=== PATIENT | male | born 1970 | race African-American/Black ===

== ENCOUNTER 2016-04-08 19:27 | Inpatient (IN) | payer BC, OTHER ==
[~2016-04-08] VITALS: Ht 172.7 cm; Wt 132.0 kg
[2016-04-08] VITALS (10 sets, daily range): BP systolic 161–215; BP diastolic 89–126; PULSE 82–99; RESP 14–16; TEMP 98; O2SAT 96–98
[~2016-04-08 19:27] MED LIST: 1-ME1LIQ PO; CLIN150 PO; CLON0.2T PO; HYDR-3534 PO; METF-324 PO
--- NOTE | 2016-04-08 20:39 | PD ---
HPI Chief Complaint: Chest Pain Time Seen by Provider: 20:39 Travel History International Travel<30 days: No Contact w/Intl Traveler<30days: No Traveled to known affect area: No History of Present Illness HPI 45-year-old male with a history of hypertension, hyperlipidemia, diabetes, CAD with stents 2 presents to the emergency department for evaluation of chest pain and shortness of breath on exertion for one week. Patient states that for the past week he has had multiple episodes of anterior chest pain radiating to his back with shortness of breath on exertion. States that the chest pain and shortness of breath always occur together and are always brought on by exertion. He states that the chest pain is described as an achiness. States that he feels fatigued after these episodes. He denies any associated lightheadedness, dizziness, diaphoresis, nausea. He denies any fever, chills, cough or cold symptoms, swelling of the extremities. States that he had a heart catheterization with 2 stents placed about 5-10 years ago for a [facility], does not know which burial vault maker performed this procedure. States he has not seen a burial vault maker since his procedure and denies ever having a stress test performed. PCP is Dr. Vieyra. No other complaints. PFSH Past Medical History Hx Anticoagulant Therapy: No Cardiac Catheterization: Yes Cardiovascular Problems: Yes High Cholesterol: Yes Chemotherapy: No Cerebrovascular Accident: No Coronary Artery Disease: Yes Diabetes: Yes Patient Takes Glucophage: Yes Diminished Hearing: No Gastrointestinal Disorders: No Genitourinary: No Hypertension: Yes Musculoskeletal: Yes Reproductive: No Respiratory: No Immunizations Current: No Past Surgical History Abdominal Surgery: No Cardiac Surgery: No Coronary Stent: Yes (X 2 IN 2009) Ear Surgery: No Endocrine Surgery: No Eye Surgery: No Genitourinary Surgery: No Gynecologic Surgery: No Oral Surgery: Yes Thoracic Surgery: No Social History Alcohol Use: No Tobacco Use: No Substance Use: No Allergies-Medications (Allergen,Severity, Reaction): Coded Allergies: Penicillin (Verified Allergy, Severe, ITCHING, 04/08/16) Reported Meds & Prescriptions Reported Meds & Active Scripts Active Reported Clonidine (Clonidine HCl) 0.2 Mg Tab 0.2 Mg PO BID Metformin (Metformin HCl) 1,000 Mg Tab 1,000 Mg PO BIDPC With meals Review of Systems Except as stated in HPI: all other systems reviewed are Neg Physical Exam Narrative GENERAL: Well-nourished and well-developed pleasant male patient in no acute distress. SKIN: Warm and dry. HEAD: Normocephalic and atraumatic. EYES: No injection, drainage, or hyphema noted. PERRLA. EOMI. ENT: No nasal drainage noted. Oropharynx is clear. NECK: Supple and the trachea is midline. CARDIOVASCULAR: Regular rate and rhythm. RESPIRATORY: Breath sounds are equal bilaterally with no accessory muscle use, wheezing, rhonchi, or crackles. GASTROINTESTINAL: Abdomen is soft, non-tender, and nondistended. MUSCULOSKELETAL: No obvious deformities, swelling, cyanosis, or ecchymosis is present throughout the upper and lower extremities. Patient has full range of motion without any signs of neurovascular compromise. NEUROLOGICAL: Awake, alert, and oriented. Normal speech and gait. Cranial nerves are grossly intact. Data Data Last Documented VS Vital Signs Date Time Temp Pulse Resp B/P Pulse Ox O2 Delivery O2 Flow Rate FiO2 04/08/16 21:48 86 14 168/99 98 Room Air 04/08/16 19:28 98.0 Orders Electrocardiogram (04/08/16 19:48) Complete Blood Count With Diff (04/08/16 19:48) Basic Metabolic Panel (Bmp) (04/08/16 19:48) Ckmb (Isoenzyme) Profile (04/08/16 19:48) Troponin I (04/08/16 19:48) Chest, Single Ap (04/08/16 19:48) Iv Access Insert/Monitor (04/08/16 19:48) Ecg Monitoring (04/08/16 19:48) Oxygen Administration (04/08/16 19:48) Oximetry (04/08/16 19:48) Prothrombin Time / Inr (Pt) (04/08/16 20:38) Act Partial Throm Time (Ptt) (04/08/16 20:38) Aspirin (Aspirin) (04/08/16 20:45) Nitroglycerin-Dextrose Inj (Nitroglyceri (04/08/16 20:45) Sodium Chloride 0.9% Flush (Ns Flush) (04/08/16 20:45) B-Type Natriuretic Peptide (04/08/16 20:44) CKMB (04/08/16 20:00) CKMB% (04/08/16 20:00) Admit Order (Ed Use Only) (04/08/16 22:25) Labs Laboratory Tests Test 04/08/16 20:00 White Blood Count 6.6 TH/MM3 Red Blood Count 5.31 MIL/MM3 Hemoglobin 14.1 GM/DL Hematocrit 43.3 % Mean Corpuscular Volume 81.4 FL Mean Corpuscular Hemoglobin 26.5 PG Mean Corpuscular Hemoglobin 32.5 % Concent Red Cell Distribution Width 14.2 % Platelet Count 218 TH/MM3 Mean Platelet Volume 10.2 FL Neutrophils (%) (Auto) 53.5 % Lymphocytes (%) (Auto) 36.4 % Monocytes (%) (Auto) 7.8 % Eosinophils (%) (Auto) 1.2 % Basophils (%) (Auto) 1.1 % Neutrophils # (Auto) 3.5 TH/MM3 Lymphocytes # (Auto) 2.4 TH/MM3 Monocytes # (Auto) 0.5 TH/MM3 Eosinophils # (Auto) 0.1 TH/MM3 Basophils # (Auto) 0.1 TH/MM3 CBC Comment DIFF FINAL Differential Comment Prothrombin Time 9.9 SEC Prothromb Time International 0.9 RATIO Ratio Activated Partial 27.3 SEC Thromboplast Time Sodium Level 138 MEQ/L Potassium Level 3.6 MEQ/L Chloride Level 103 MEQ/L Carbon Dioxide Level 24.1 MEQ/L Anion Gap 11 MEQ/L Blood Urea Nitrogen 17 MG/DL Creatinine 1.05 MG/DL Estimat Glomerular Filtration 92 ML/MIN Rate Random Glucose 323 MG/DL Calcium Level 9.1 MG/DL Total Creatine Kinase 237 U/L Creatine Kinase MB 1.4 NG/ML Troponin I 0.02 NG/ML B-Type Natriuretic Peptide LESS THAN 2 PG/ML MDM Medical Decision Making Medical Screen Exam Complete: Yes Emergency Medical Condition: Yes Differential Diagnosis Unstable angina versus hypertensive urgency versus ACS versus other Narrative Course 45-year-old male presents to the emergency department for evaluation of chest pain and shortness of breath with exertion for the past week. Patient is afebrile. He is hypertensive with a blood pressure of 215/123. He is not currently experiencing any chest pain at this time. IV access is obtained, labs of been drawn and sent. EKG shows sinus rhythm with no acute ST elevations or depressions, read and discussed with my attending physician Dr. Trujillo. Patient will be placed on a nitro drip and he is given aspirin 325 mg orally. Chest x-ray is negative for any acute abnormalities. CBC is unremarkable. Coags are unremarkable. CMP shows hyperglycemia with a glucose of 323, otherwise unremarkable. Troponin is 0.02. BNP is less than 2. The patient has remained stable and without complaint while here in the emergency department. After being on the nitro drip his blood pressure has improved to 165/98. The patient will be admitted to medicine service with cardiology consultation. I discussed the case with my attending physician Dr. Trujillo who is aware of the patients history, physical examination findings, and treatment plan. Physician Communication Physician Communication I spoke with Dr. Chowdhury [facility] who agrees to admit the patient to her service. Diagnosis Primary Impression: Hypertensive urgency Additional Impressions: Chest pain Qualified Code: R07.9 - Chest pain, unspecified type Unstable angina Admitting Information Admitting Physician Requests: Admit Xiao Kruse Apr 08, 2016 20:39
--- NOTE | 2016-04-08 20:42 | RADRPT ---
EXAM DATE/TIME: 04/08/2016 20:08 [place] COMPARISON: No previous studies available for comparison. INDICATIONS : Chest Pain and Shortness of breath MEDICAL HISTORY : High Blood Pressure SURGICAL HISTORY : None. ENCOUNTER: Initial ACUITY: 1 day PAIN SCORE: 5/10 LOCATION: Bilateral chest FINDINGS: A single view of the chest demonstrates the lungs to be symmetrically aerated without evidence of mas s, infiltrate or effusion. The cardiomediastinal contours are unremarkable. Mild elevation right he midiaphragm. Osseous structures are intact. CONCLUSION: The lungs are clear. Jose Smith MD on April 08, 2016 at 20:41 Board Certified Radiologist. This report was verified electronically.
[2016-04-08] MEDS ORDERED: SODIUM CHLORIDE 0.9% FLUSH 5 ML FLUSH IVF PRN (20:45)
[2016-04-08] MEDS ORDERED: ASPIRIN 325 MG TAB PO ONE (20:45)
[2016-04-08] MEDS ORDERED: NITROGLYCERIN-DEXTROSE INJ 250 ML IV ONE (20:45)
[2016-04-08] MEDS ORDERED: METF1000 PO (21:04)
[2016-04-08] MEDS ORDERED: CLON0.2T PO (21:04)
[2016-04-08 21:11] LABS: AUTOMATED NEUTROPHIL # 3.5 TH/MM3 (1.8-7.7); BASOPHIL # 0.1 TH/MM3 (0-0.2); BASOPHIL % 1.1 % (0.0-2.0); EOSINOPHIL # 0.1 TH/MM3 (0-0.4); EOSINOPHIL % 1.2 % (0.0-4.0); HEMATOCRIT 43.3 % (39.0-51.0); HEMO FLAGS DIFF FINAL; LYMPH % 36.4 % (9.0-44.0); LYMPHOCYTE # 2.4 TH/MM3 (1.0-4.8); MEAN CELL VOLUME 81.4 FL (80.0-100.0); MEAN CORPUSCULAR HEMOGLOBIN 26.5 PG (27.0-34.0); MEAN CORPUSCULAR HGB CONC 32.5 % (32.0-36.0); MONO % 7.8 % (0.0-8.0); NEUT % 53.5 % (16.0-70.0); PLATELET COUNT 218 TH/MM3 (150-450); RED BLOOD COUNT 5.31 MIL/MM3 (4.50-5.90); RED CELL DISTRIBUTION WIDTH 14.2 % (11.6-17.2); WHITE BLOOD COUNT 6.6 TH/MM3 (4.0-11.0)
[2016-04-08 21:19] LABS: APTT (PATIENT) 27.3 SEC (24.3-30.1); INTERNATIONAL NORMALIZED RATIO 0.9 RATIO; PROTHROMBIN TIME - PATIENT 9.9 SEC (9.8-11.6)
[2016-04-08 21:37] LABS: ANION GAP 11 MEQ/L (5-15); BICARBONATE 24.1 MEQ/L (21.0-32.0); BLOOD UREA NITROGEN 17 MG/DL (7-18); CHLORIDE 103 MEQ/L (98-107); GLOMERULAR FILTRATION RATE 92 ML/MIN (>89); POTASSIUM 3.6 MEQ/L (3.5-5.1); SODIUM (NA) 138 MEQ/L (136-145)
[2016-04-08 21:41] LABS: CREATINE KINASE 237 U/L (39-308)
[2016-04-08 21:53] LABS: CKMB 1.4 NG/ML (0.5-3.6)
[2016-04-08] MEDS ORDERED: SODIUM CHLORIDE 0.9% FLUSH 5 ML FLUSH FLUSH PRN (22:30)
[2016-04-08] MEDS ORDERED: ONDANSETRON HCL 4 MG/2 ML VIAL IVP PRN (22:30)
[2016-04-08] MEDS ORDERED: DEXTROSE 50% IN WATER 50 ML VIAL(D50) IV PUSH PRN (22:30)
[2016-04-08] MEDS ORDERED: ACETAMINOPHEN/HYDROcodone 325 MG/5 MG TAB PO PRN (22:30)
[2016-04-08] MEDS ORDERED: MORPHINE SULFATE 4 MG/ML INJ IV PRN (22:30)
[2016-04-08] MEDS ORDERED: BISACODYL 10 MG SUPP PR PRN (22:30)
[2016-04-08] MEDS ORDERED: METOPROLOL TARTRATE 25 MG TAB PO ONE (22:30)
[2016-04-08] MEDS ORDERED: ACETAMINOPHEN 325 MG TAB PO PRN (22:30)
[2016-04-08] MEDS ORDERED: GLUCAGON 1 MG/ML VIAL OTHER PRN (22:30)
--- NOTE | 2016-04-08 22:35 | HHI.HP ---
[facility] No Primary Care Physician Admission Diagnosis Chest Pain, Unstable Angina, Hypertensive Urgency Diagnoses: (1) Chest pain Diagnosis: Principal (2) Hypertensive urgency Diagnosis: Principal (3) CAD (coronary artery disease) Diagnosis: Principal (4) DM (diabetes mellitus) Diagnosis: Principal Travel History International Travel<30 Days: No Contact w/Intl Traveler <30 Da: No Traveled to Known Affected Are: No History of Present Illness This is a 45-year-old male with PMH of HTN, Hyperlipidemia, DM and CAD s/p Stent 2009 who came to the ER w/ complaints of chest pain and SOB for approx 1wk. States he's had ongoing SOB mostly w/ exertion that has gotten progressively worse, now unable to walk short distances without SOB, has chest pain associated w/ SOB. No fever, no chills. 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 On arrival, BP 215/123, HR 99, O2 sat 96% on RA, Afebrile. Started on Nitro gtt in ER, currently BP 168/99, HR 86. Chest pain free at this time. CBC unremarkable. Chemistry essentially unremarkable. Troponin 0.02. CXR with no acute findings. Review of Systems Other ROS: 14 point review of systems otherwise negative. Past Family Social History Past Medical History PMH: HTN, Hyperlipidemia, DM and CAD s/p Stent 2009 Past Surgical History PAST SURGICAL HISTORY: Cardiac Stent x2 2010 Allergies: Coded Allergies: Penicillin (Verified Allergy, Severe, ITCHING, 04/08/16) Family History PAST FAMILY HISTORY: Reviewed, positive for DM and CAD. Social History PAST SOCIAL HISTORY: Negative for alcohol, tobacco or drugs. Physical Exam Vital Signs Vital Signs Date Time Temp Pulse Resp B/P Pulse Ox O2 Delivery O2 Flow Rate FiO2 04/08/16 21:48 86 14 168/99 98 Room Air 04/08/16 21:30 88 15 172/102 98 Room Air 04/08/16 21:15 82 15 202/118 97 Room Air 04/08/16 21:00 86 15 197/99 98 04/08/16 20:57 88 15 187/112 98 04/08/16 20:46 86 15 181/108 98 04/08/16 20:00 86 04/08/16 20:00 99 Room Air 04/08/16 19:58 86 16 202/126 97 04/08/16 19:28 98.0 99 16 215/123 96 Physical Exam PE: GENERAL: Very pleasant middle-aged white male in no acute distress. at bedside. HEENT: PERRLA, EOMI. No scleral icterus or conjunctival pallor. No lid lag or facial droop. CARDIOVASCULAR: Regular rate and rhythm. No obvious murmurs to auscultation. No chest tenderness to palpation. RESPIRATORY: No obvious rhonchi or wheezing. Clear to auscultation. Breath sounds equal bilaterally. GASTROINTESTINAL: Abdomen soft, non-tender, nondistended. BS normal. MUSCULOSKELETAL: Extremities without clubbing, cyanosis, or edema. No obvious deformities. NEUROLOGICAL: Awake, alert and oriented x4. No focal neurologic deficits. Moving both upper and lower extremities spontaneously. Laboratory Laboratory Tests Test 04/08/16 20:00 White Blood Count 6.6 Red Blood Count 5.31 Hemoglobin 14.1 Hematocrit 43.3 Mean Corpuscular Volume 81.4 Mean Corpuscular Hemoglobin 26.5 Mean Corpuscular Hemoglobin 32.5 Concent Red Cell Distribution Width 14.2 Platelet Count 218 Mean Platelet Volume 10.2 Neutrophils (%) (Auto) 53.5 Lymphocytes (%) (Auto) 36.4 Monocytes (%) (Auto) 7.8 Eosinophils (%) (Auto) 1.2 Basophils (%) (Auto) 1.1 Neutrophils # (Auto) 3.5 Lymphocytes # (Auto) 2.4 Monocytes # (Auto) 0.5 Eosinophils # (Auto) 0.1 Basophils # (Auto) 0.1 CBC Comment DIFF FINAL Differential Comment Prothrombin Time 9.9 Prothromb Time International 0.9 Ratio Activated Partial 27.3 Thromboplast Time Sodium Level 138 Potassium Level 3.6 Chloride Level 103 Carbon Dioxide Level 24.1 Anion Gap 11 Blood Urea Nitrogen 17 Creatinine 1.05 Estimat Glomerular Filtration 92 Rate Random Glucose 323 Calcium Level 9.1 Total Creatine Kinase 237 Creatine Kinase MB 1.4 Troponin I 0.02 B-Type Natriuretic Peptide LESS THAN 2 Result Diagram: 04/08/16199904/08/161999 Assessment and Plan Problem List: (1) Chest pain ICD Code: R07.9 Status: Acute (2) CAD (coronary artery disease) ICD Code: I25.10 Status: Acute (3) Hypertensive urgency ICD Code: I16.0 Status: Acute (4) DM (diabetes mellitus) ICD Code: E11.9 Status: Acute Assessment and Plan A/P: 1. Chest Pain: Exertional, associated w/ SOB, ongoing x1 wk, now progressively worse. Initial trop negative, EKG w/ no acute ischemia. Admit for further cardiac work up in light of h/o CAD. Check serial trop, lipid profile, Hgb A1c, TSH. Start ASA, Metoprolol, Statin. Consult Cardiology for further evaluation. CXR w/ no acute findings, images reviewed by me. On Nitro gtt. Morphine prn. 2. CAD: h/o Cardiac Stent x2 in 2009, no follow up w/ Cardiology since then. 3. Hypertensive Urgency: BP on arrival 215/123, HR 99 started on Nitro gtt in ER, BP currently 168/99, HR 86. Continue Nitro, wean as tolerated. Start Metoprolol 25mg bid, resume home Clonidine 0.2mg bid. 4. DM: Sliding scale w/ Accu-Cheks. Hold Metformin for possible cardiac intervention. Check Hgb A1c. 5. DVT Prophylaxis: SCD/Teds. 6. Social work for d/c planning as needed. 7. Case discussed w/ ER physician at length. Physician Certification 2 Midnight Certification Type: Admission for Inpatient Services Order for Inpatient Services The services are ordered in accordance with Medicare regulations or non- Medicare payer requirements, as applicable. In the case of services not specified as inpatient-only, they are appropriately provided as inpatient services in accordance with the 2-midnight benchmark. Estimated LOS (days): 2 days is the estimated time the patient will need to remain in the hospital, assuming treatment plan goals are met and no additional complications. Post-Hospital Plan: Not yet determined Problem Qualifiers (1) Chest pain: Qualified Code: R07.9 - Chest pain, unspecified type Haven Chowdhury MD Apr 08, 2016 22:35
[2016-04-09] VITALS (9 sets, daily range): BP systolic 132–167; BP diastolic 71–93; PULSE 67–82; RESP 14–16; O2SAT 96–98
[2016-04-09 05:49] LABS: HDL CHOLESTEROL 49.9 MG/DL (40.0-60.0); LDL CHOLESTEROL 170 MG/DL (0-99)
--- NOTE | 2016-04-09 06:12 | EKG ---
Date Performed: 04/08/2016 Time Performed: 20:02:40 PTAGE: 45 years EKG: Sinus rhythm NONSPECIFIC INTRAVENTRICULAR CONDUCTION DELAY NONSPECIFIC T-WAVE ABNORMALITY BORDERLINE ECG PREVIOUS TRACING : 06/06/2011 09.52 No significant change from previous tracing noted. DOCTOR: Je Williamson Interpretating Date/Time 04/09/2016 06:11:26
[2016-04-09] MEDS: INSULIN ASPART SUPPLEMENTAL SCALE SQ SCH ×4 (08:52→19:55)
[2016-04-09] MEDS ORDERED: cloNIDine HCL 0.2 MG TAB PO SCH (09:00)
[2016-04-09] MEDS ORDERED: LISINOPRIL 20 MG TAB PO SCH (09:00)
[2016-04-09] MEDS ORDERED: PRAVASTATIN SOD 40 MG TAB PO SCH (09:00)
[2016-04-09] MEDS: SODIUM CHLORIDE 0.9% FLUSH 5 ML FLUSH FLUSH SCH ×2 (09:00→19:46)
[2016-04-09] MEDS: METOPROLOL TARTRATE 25 MG TAB PO SCH ×2 (09:03→19:45)
[2016-04-09] MEDS: ASPIRIN EC 81 MG TABEC PO SCH (09:03)
[2016-04-09] MEDS: ATORVASTATIN 80 MG TAB PO SCH (09:21)
--- NOTE | 2016-04-09 09:27 | HHI.PR ---
Subjective Remarks The patient was resting in bed comfortably. He said he has pain in a bandlike distribution across his chest that radiates to the right side of his back. He gets worse with activity such as walking 50 feet. He does not have symptoms at rest. He has not had a stress test in a long time. He does not have pain upon breathing deeply. Discussed with nursing. Objective Vitals Vital Signs Date Time Temp Pulse Resp B/P Pulse Ox O2 Delivery O2 Flow Rate FiO2 04/09/16 08:50 82 16 141/73 96 Room Air 04/09/16 07:10 72 16 140/81 98 Room Air 04/09/16 05:00 67 14 160/89 98 Room Air 04/09/16 04:00 72 14 157/92 98 Room Air 04/09/16 03:00 74 14 153/86 98 Room Air 04/09/16 02:00 72 16 167/91 98 Room Air 04/09/16 01:00 77 16 163/93 98 Room Air 04/08/16 23:59 83 16 161/96 98 Room Air 04/08/16 22:48 82 16 179/89 98 Room Air 04/08/16 21:48 86 14 168/99 98 Room Air 04/08/16 21:30 88 15 172/102 98 Room Air 04/08/16 21:15 82 15 202/118 97 Room Air 04/08/16 21:00 86 15 197/99 98 04/08/16 20:57 88 15 187/112 98 04/08/16 20:46 86 15 181/108 98 04/08/16 20:00 86 04/08/16 20:00 99 Room Air 04/08/16 19:58 86 16 202/126 97 04/08/16 19:28 98.0 99 16 215/123 96 Result Diagram: 04/08/16199904/08/161999 Imaging Last Impressions Chest X-Ray 04/08/161947 Signed Impressions: Service Date/Time: Friday, April 08, 2016 20:08 - CONCLUSION: The lungs are clear. Jose Smith MD Objective Remarks GENERAL: No apparent distress, resting comfortably. HEENT: PERRLA, EOMI. No scleral icterus or conjunctival pallor. No lid lag or facial droop. CARDIOVASCULAR: Regular rate and rhythm. No obvious murmurs to auscultation. No chest tenderness to palpation. RESPIRATORY: No obvious rhonchi or wheezing. Clear to auscultation. Breath sounds equal bilaterally. GASTROINTESTINAL: Abdomen soft, non-tender, nondistended. BS normal. MUSCULOSKELETAL: Extremities without clubbing, cyanosis, or edema. No obvious deformities. NEUROLOGICAL: Awake, alert and oriented x4. No focal neurologic deficits. Moving both upper and lower extremities spontaneously. PSYCH: Mood and affect appropriate. Medications and IVs Current Medications Medications (Trade) Dose Ordered Sig/Sin Route Start Time Stop Time Status Last Admin (Lopressor) 25 mg Q12HR PO 04/09/16 09:00 04/09/16 09:03 (Ecotrin Ec) 81 mg DAILY PO 04/09/16 09:00 04/09/16 09:03 (D50w (Vial) Inj) 25 ml UNSCH PRN IV PUSH 04/08/16 22:30 (Glucagon Inj) 1 mg UNSCH PRN OTHER 04/08/16 22:30 (NS Flush) 2 ml UNSCH PRN FLUSH 04/08/16 22:30 (NS Flush) 2 ml BID FLUSH 04/09/16 09:00 (Zofran Inj) 4 mg Q6H PRN IVP 04/08/16 22:30 (Dulcolax Supp) 10 mg DAILY PRN OH 04/08/16 22:30 (Tylenol) 650 mg Q6H PRN PO 04/08/16 22:30 (Chazy 5-325 Mg) 1 tab Q4H PRN PO 04/08/16 22:30 (Morphine Inj) 2 mg Q3H PRN IV 04/08/16 22:30 (Catapres) 0.2 mg BID PO 04/09/16 09:00 (Lipitor) 80 mg DAILY PO 04/09/16 09:00 (Prinivil) 20 mg DAILY PO 04/09/16 09:00 A/P Problem List: (1) Chest pain ICD Code: R07.9 Status: Acute (2) CAD (coronary artery disease) ICD Code: I25.10 Status: Acute (3) Hypertensive urgency ICD Code: I16.0 Status: Acute (4) DM (diabetes mellitus) ICD Code: E11.9 Status: Acute Assessment and Plan Chest pain History of stents x 2. Exertional, associated w/ SOB, ongoing x1 wk, progressively worse. Second troponin 0.05. EKG w/ no acute ischemia. CXR with no acute findings. LDL elevated. - check serial trop. - Start ASA, Metoprolol, statin, ACEi. - Consult cardiology for further evaluation. Will likely need stress test. - pain control and oxygen as needed. - telemetry. Hypertensive urgency BP on arrival 215/123, started on Nitro gtt in ER, BP improved. - Continue Nitro, wean as tolerated. - Start Metoprolol 25mg bid, lisinopril 20 mg daily. - clonidine as needed. DM On metformin as an outpt. He says his sugars have been out of control at home. - Sliding scale w/ Accu-Cheks. - Hold Metformin for possible cardiac intervention. - Check Hgb A1c. - start NPH 20 units daily. - bisque finisher consult. DVT Prophylaxis: Heparin. Discharge Planning Awaiting clinical improvement. Problem Qualifiers (1) Chest pain: Qualified Code: R07.9 - Chest pain, unspecified type Sincere Reyes DO Apr 09, 2016 09:27
[2016-04-09] MEDS: INSULIN HUMAN NPH 1,000 UNITS/10 ML VIAL SQ SCH (11:06)
[2016-04-09 11:09] LABS: AUTOMATED NEUTROPHIL # 4.6 TH/MM3 (1.8-7.7); BASOPHIL % 0.5 % (0.0-2.0); EOSINOPHIL # 0.1 TH/MM3 (0-0.4); EOSINOPHIL % 1.1 % (0.0-4.0); HEMO FLAGS DIFF FINAL; LYMPH % 33.1 % (9.0-44.0); LYMPHOCYTE # 2.6 TH/MM3 (1.0-4.8); MEAN CELL VOLUME 80.3 FL (80.0-100.0); MEAN CORPUSCULAR HEMOGLOBIN 26.8 PG (27.0-34.0); MEAN CORPUSCULAR HGB CONC 33.4 % (32.0-36.0); MONO % 7.8 % (0.0-8.0); NEUT % 57.5 % (16.0-70.0); PLATELET COUNT 209 TH/MM3 (150-450); RED BLOOD COUNT 4.85 MIL/MM3 (4.50-5.90); RED CELL DISTRIBUTION WIDTH 14.5 % (11.6-17.2)
[2016-04-09 11:46] LABS: ALKALINE PHOSPHATASE 110 U/L (45-117); ALT (GPT) 20 U/L (12-78); ANION GAP 8 MEQ/L (5-15); AST (GOT) 10 U/L (15-37); BICARBONATE 27.2 MEQ/L (21.0-32.0); BLOOD UREA NITROGEN 14 MG/DL (7-18); CHLORIDE 105 MEQ/L (98-107); GLOMERULAR FILTRATION RATE 107 ML/MIN (>89); POTASSIUM 3.3 MEQ/L (3.5-5.1); SODIUM (NA) 140 MEQ/L (136-145); TOTAL BILIRUBIN ADULT 0.3 MG/DL (0.2-1.0)
--- NOTE | 2016-04-09 14:08 | MB ---
cc: CHI DUDLEY DATE OF CONSULTATION: 04/09/2016 DATE OF : 1970 REASON FOR CONSULTATION Chest pain. HISTORY OF PRESENT ILLNESS 45-year-old male with past medical history significant for hypertension, hyperlipidemia, diabetes and coronary artery disease status post PCI in 2009 to right coronary artery that presented to the emergency department with complaints of fatigue and chest pain for about one week. He reports that he had been in his usual state of health until about one week ago when he started noticing fatigue on minimal exertion as well as chest discomfort across the chest without radiation. He denies fevers, chills, nausea, vomiting, diarrhea, chest trauma or bleeding issues. He reports for the most part being noncompliant with medications and he does not follow with cardiology. On arrival to the emergency department blood pressure was 215/123 with a heart rate of 99. He was started on a nitro drip and the chest pain resolved. Cardiology has been consulted for further management and evaluation of angina. REVIEW OF SYSTEMS Negative except for what is mentioned in the HPI. PAST MEDICAL HISTORY 1. CAD status post PCI to the right coronary artery in 2009. 2. Hypertension. 3. Hyperlipidemia. 4. Diabetes. 5. Obesity. PAST SURGICAL HISTORY Stents in 2009. MEDICATIONS According to the chart home medications he is on clonidine 0.2 mg p.o. b.i.d. and metformin 1000 mg p.o. b.i.d. ALLERGIES PENICILLIN. FAMILY HISTORY Positive for diabetes and CAD; however, no premature myocardial infarction. SOCIAL HISTORY Denies smoking, illicit drug use or alcohol use. PHYSICAL EXAMINATION VITAL SIGNS: Temperature 98, heart rate 82, respiratory rate 16, blood pressure on arrival 215/123, this morning 141/73. O2 96% at room air GENERAL: He is awake, alert, oriented x3, in no acute distress lying in bed. NECK: No JVD. No carotid bruits. No lymphadenopathy. HEART: Normal S1, S2. No murmurs, rubs or gallops. LUNGS: Clear to auscultation bilaterally. No wheezes, rhonchi or rales. ABDOMEN: Obese. Positive bowel sounds. Soft, nontender, nondistended. No hepatosplenomegaly. EXTREMITIES: There is no cyanosis or edema. Pulses throughout. LABORATORY DATA Hemoglobin 14, hematocrit 43, platelet count 218. INR 0.9. Sodium 138, potassium 3.6, BUN 17, creatinine 1.05. Troponin 0.02 and 0.05. Cholesterol 235, LDL 170, HDL 49. TSH 2.010. EKG EKG shows normal sinus rhythm with nonspecific ST changes and interventricular conduction delay. CARDIAC STUDIES The patient underwent a left heart catheterization and PCI in 2009 at [facility] in the setting of angina and palpitations. He was found to have an EF of 40% at that time and severe lesions in the mid RCA and distal RCA which were successfully stented with two drug-eluting stent, 3 x 18 and 2.75 x 13. ASSESSMENT A 45-year-old male presenting with angina in the setting of hypertensive urgency and symptoms of angina. He remains fairly hemodynamically stable and chest pain free. Blood pressure has been successfully controlled with medications. He does have known CAD and noncompliance issues. I have talked to him and he reported that mostly compliance was due to problems with his insurance; however, that has been resolved and he does wants to follow with cardiology as well as to comply with his medications. Given the patient's risk factors and history of CAD I think it would be reasonable to risk stratify him for progression of CAD doing a myocardial perfusion stress test. If the stress test is negative, blood pressure medications as well as CAD medications should be optimized. He can follow with me on an outpatient basis. On the other hand if the stress test shows reversible ischemia, I have talked to him about the possibility of doing a left heart cath to further assess progression of CAD. The patient is in agreement with the plan. RECOMMENDATIONS 1. Myocardial perfusion stress test today. 2. Continue aggressive medical management for CAD including aspirin, metoprolol , JAYJAY inhibitor, statin. 3. Diabetes mellitus management. 4. Regarding his blood pressure outpatient therapy ideally this patient should not be on clonidine. I would prefer him to be on a more simple medication regimen with better side effect profile. Thank you for the opportunity to take part in the care of this patient. MD ROSEMARIE De Luna/BT /9:59 AM /1:45 PM [place]
[2016-04-09] MEDS ORDERED: LISINOPRIL 20 MG TAB PO ONE (16:00)
[2016-04-09] MEDS: HEPARIN SODIUM - SQ 10,000 UNITS/ML VIAL SQ SCH ×2 (16:08→19:45)
[2016-04-09] MEDS: NITROGLYCERIN 2% OINT 1 GM PACKET TOPICAL SCH (16:09)
[2016-04-09] MEDS: cloNIDine HCL 0.2 MG TAB PO PRN (23:00)
[2016-04-10] VITALS: BP 154/89; PULSE 75; RESP 23; TEMP 98.3; O2SAT 98
[2016-04-10 04:00] VITALS: BP 148/79; PULSE 72; RESP 19; TEMP 98.9; O2SAT 19
[2016-04-10] MEDS: HEPARIN SODIUM - SQ 10,000 UNITS/ML VIAL SQ SCH ×2 (05:41→13:41)
[2016-04-10] MEDS: INSULIN ASPART SUPPLEMENTAL SCALE SQ SCH ×3 (05:43→20:46)
[2016-04-10] MEDS: NITROGLYCERIN 2% OINT 1 GM PACKET TOPICAL SCH ×4 (05:43→20:44)
[2016-04-10 08:00] VITALS: BP 152/92; PULSE 81; RESP 20; TEMP 98.7
[2016-04-10] MEDS: ASPIRIN EC 81 MG TABEC PO SCH (08:14)
[2016-04-10] MEDS: LISINOPRIL 20 MG TAB PO SCH (08:14)
[2016-04-10] MEDS: SODIUM CHLORIDE 0.9% FLUSH 5 ML FLUSH FLUSH SCH (08:15)
[2016-04-10] MEDS: ATORVASTATIN 80 MG TAB PO SCH (08:15)
[2016-04-10] MEDS: METOPROLOL TARTRATE 25 MG TAB PO SCH (08:15)
[2016-04-10] MEDS: INSULIN HUMAN NPH 1,000 UNITS/10 ML VIAL SQ SCH (08:15)
[2016-04-10] MEDS ORDERED: POTASSIUM CHLORIDE 20 MEQ CONTROLLED RELEASE TAB PO ONE ×2 (09:45→13:15)
[2016-04-10] MEDS ORDERED: METOPROLOL TARTRATE 25 MG TAB PO ONE (09:45)
[2016-04-10] MEDS: cloNIDine HCL 0.2 MG TAB PO PRN ×2 (10:05→16:21)
[2016-04-10] MEDS ORDERED: REGADENOSON INJ 0.4 MG/5 ML SYR ONE (11:30)
[2016-04-10 12:00] VITALS: BP 163/98; RESP 18; TEMP 98.5
[2016-04-10 13:07] LABS: HEMOGLOBIN A1a 1.3 %; HEMOGLOBIN A1b 1.1 %; HEMOGLOBIN Ao 77.9 %; HEMOGLOBIN F 1.5 %; HEMOGLOBIN LA1C 2.7 %; HEMOGLOBIN P3 4.8 %
--- NOTE | 2016-04-10 13:07 | RADRPT ---
EXAM DATE/TIME: 04/09/2016 12:39 [facility] COMPARISON: No previous studies available for comparison. INDICATIONS : Susbternal chest pain with dyspnea. Angina. Coronary artery disease. DOSE: 30 mCi Tc99m Myoview at stress. 31.9 mCi Tc99m Myoview at rest. 0.4 mg Lexiscan STRESS SYMPTOMS: Dyspnea. EJECTION FRACTION: 36% MEDICAL HISTORY : Hypertension. Diabetes mellitus type 2. SURGICAL HISTORY : Coronary artery stent. ENCOUNTER: Initial ACUITY: 1 day PAIN SCALE: 6/10 LOCATION: Substernal chest TECHNIQUE: The patient underwent pharmacologic stress with infusion of prescribed dose. Continuous ECG tracing was monitored during stress. Gated SPECT imaging was performed after stress and conventional SPECT i maging was performed at rest. The examination was performed on a SPECT/CT scanner, both attenuation and non-corrected datasets were reviewed. FINDINGS: DISTRIBUTION: The maximum perfused segment at stress is in the anterior wall. PERFUSION STUDY: There is moderately diminished perfusion along the apical inferior wall. There is some questionable r edistribution on the rest images. No other areas of redistribution or demonstrated. GATED STUDY: There is dyskinesia of the inferior wall. There is global hypokinesis. CONCLUSION: 1. Diminished perfusion is noted along the apical inferior wall with questionable redistribution on t he rest images. 2. Dyskinesia of the inferior wall and global hypokinesis 3. Diminished ejection fraction at 36%. RISK CATEGORY: Intermediate Anatoly Barbosa MD on April 10, 2016 at 12:59 Board Certified Radiologist. This report was verified electronically.
--- NOTE | 2016-04-10 13:14 | HHI.PR ---
Subjective Remarks The patient had just had a stress test. He was resting comfortably. His was at the bedside. He denied any chest pain or shortness of breath. He denies any constipation. He said he has been on all kinds of blood pressure medications in the past. Discussed with nursing. Objective Vitals Vital Signs Date Time Temp Pulse Resp B/P Pulse Ox O2 Delivery O2 Flow Rate FiO2 04/10/16 08:00 98.7 81 20 152/92 04/10/16 04:00 98.9 72 19 148/79 19 04/10/16 00:00 98.3 75 23 154/89 98 I/O 04/09/16 04/09/16 04/09/16 04/10/16 04/10/16 04/10/16 07:00 15:00 23:00 07:00 15:00 23:00 Intake Total 300 ml 0 ml Output Total 1400 ml 300 ml Balance -1100 ml -300 ml Intake Oral 300 ml IV Total 0 ml 0 ml Output Urine Total 1400 ml 300 ml # Bowel Movements 0 0 Result Diagram: 04/09/16 1050 04/09/16 1056 Imaging Last Impressions Chest X-Ray 04/08/161947 Signed Impressions: Service Date/Time: Friday, April 08, 2016 20:08 - CONCLUSION: The lungs are clear. Jose Smith MD Objective Remarks GENERAL: No apparent distress, resting comfortably. HEENT: PERRLA, EOMI. No scleral icterus or conjunctival pallor. No lid lag or facial droop. CARDIOVASCULAR: Regular rate and rhythm. Grade 1 systolic murmur appreciated. RESPIRATORY: No obvious rhonchi or wheezing. Clear to auscultation. Breath sounds equal bilaterally. GASTROINTESTINAL: Abdomen soft, non-tender, nondistended. BS normal. MUSCULOSKELETAL: Extremities without clubbing, cyanosis, or edema. No obvious deformities. NEUROLOGICAL: Awake, alert and oriented x4. No focal neurologic deficits. Moving both upper and lower extremities spontaneously. PSYCH: Mood and affect appropriate. Medications and IVs Current Medications Medications (Trade) Dose Ordered Sig/Sin Route Start Time Stop Time Status Last Admin (Ecotrin Ec) 81 mg DAILY PO 04/09/16 09:00 04/10/16 08:14 (D50w (Vial) Inj) 25 ml UNSCH PRN IV PUSH 04/08/16 22:30 (Glucagon Inj) 1 mg UNSCH PRN OTHER 04/08/16 22:30 (NS Flush) 2 ml UNSCH PRN FLUSH 04/08/16 22:30 (NS Flush) 2 ml BID FLUSH 04/09/16 09:00 04/10/16 08:15 (Zofran Inj) 4 mg Q6H PRN IVP 04/08/16 22:30 (Dulcolax Supp) 10 mg DAILY PRN DC 04/08/16 22:30 (Tylenol) 650 mg Q6H PRN PO 04/08/16 22:30 ([place] 5-325 Mg) 1 tab Q4H PRN PO 04/08/16 22:30 (Morphine Inj) 2 mg Q3H PRN IV 04/08/16 22:30 (Lipitor) 80 mg DAILY PO 04/09/16 09:00 04/10/16 08:15 (Catapres) 0.2 mg Q6H PRN PO 04/09/16 09:30 04/10/16 10:05 (NovoLIN N INJ) 20 units DAILY SQ 04/09/16 09:45 04/09/16 11:06 (Heparin Inj) 5,000 units Q8HR SQ 04/09/16 14:00 04/10/16 05:41 (Prinivil) 40 mg DAILY PO 04/10/16 09:00 04/10/16 08:14 (Nitroglycerin 2% Oint) 1 inch Q6HR TOPICAL 04/09/16 15:45 04/10/16 05:44 (Lopressor) 50 mg Q12HR PO 04/10/16 21:00 A/P Problem List: (1) Chest pain ICD Code: R07.9 Status: Acute (2) CAD (coronary artery disease) ICD Code: I25.10 Status: Acute (3) Hypertensive urgency ICD Code: I16.0 Status: Acute (4) DM (diabetes mellitus) ICD Code: E11.9 Status: Acute Assessment and Plan Chest pain History of stents x 2. Exertional, associated w/ SOB, ongoing x1 wk, progressively worse. Troponin peaked at 0.05. EKG w/ no acute ischemia. CXR with no acute findings. LDL elevated. Cardiology consult appreciated. - Start ASA, Metoprolol, statin, ACEi. - Stress test results pending. Follow-up with cardiology. - pain control and oxygen as needed. - telemetry. Hypertensive urgency BP on arrival 215/123, started on Nitro gtt in ER, BP improved. - Continue Nitro paste. - Metoprolol 50 mg bid, lisinopril 40 mg daily. Add HCTZ 25 mg daily. - clonidine as needed. - consider MRA of the renal arteries to rule out BRIAN. DM On metformin as an outpt. He says his sugars have been out of control at home. Improved at the hospital. - Sliding scale w/ Accu-Cheks. - Hold Metformin for possible cardiac intervention. - Check Hgb A1c. - continue NPH 20 units daily. - adaptive physical educator consult. DVT Prophylaxis: Heparin. Discharge Planning Transfer to [facility]. Problem Qualifiers (1) Chest pain: Qualified Code: R07.9 - Chest pain, unspecified type Sincere Reyes DO Apr 10, 2016 13:14
[2016-04-10] MEDS: HYDROCHLOROTHIAZIDE 25 MG TAB PO SCH (13:40)
[2016-04-10 16:00] VITALS: BP 181/108; PULSE 78; RESP 20; TEMP 98.1; O2SAT 98
--- NOTE | 2016-04-10 17:30 | PD.CARD.PN ---
Subjective Subjective Remarks no complaints stress test results noted Objective Medications Current Medications Medications (Trade) Dose Ordered Sig/Sin Route Start Time Stop Time Status Last Admin (Ecotrin Ec) 81 mg DAILY PO 04/09/16 09:00 04/10/16 08:14 (D50w (Vial) Inj) 25 ml UNSCH PRN IV PUSH 04/08/16 22:30 (Glucagon Inj) 1 mg UNSCH PRN OTHER 04/08/16 22:30 (NS Flush) 2 ml UNSCH PRN FLUSH 04/08/16 22:30 (NS Flush) 2 ml BID FLUSH 04/09/16 09:00 04/10/16 08:15 (Zofran Inj) 4 mg Q6H PRN IVP 04/08/16 22:30 (Dulcolax Supp) 10 mg DAILY PRN VA 04/08/16 22:30 (Tylenol) 650 mg Q6H PRN PO 04/08/16 22:30 ([place] 5-325 Mg) 1 tab Q4H PRN PO 04/08/16 22:30 (Morphine Inj) 2 mg Q3H PRN IV 04/08/16 22:30 (Lipitor) 80 mg DAILY PO 04/09/16 09:00 04/10/16 08:15 (Catapres) 0.2 mg Q6H PRN PO 04/09/16 09:30 04/10/16 16:21 (NovoLIN N INJ) 20 units DAILY SQ 04/09/16 09:45 04/09/16 11:06 (Heparin Inj) 5,000 units Q8HR SQ 04/09/16 14:00 04/10/16 13:41 (Prinivil) 40 mg DAILY PO 04/10/16 09:00 04/10/16 08:14 (Nitroglycerin 2% Oint) 1 inch Q6HR TOPICAL 04/09/16 15:45 04/10/16 13:40 (Lopressor) 50 mg Q12HR PO 04/10/16 21:00 (Hydrodiuril) 25 mg DAILY PO 04/10/16 14:00 04/10/16 13:40 Vital Signs / I&O Vital Signs Date Time Temp Pulse Resp B/P Pulse Ox O2 Delivery O2 Flow Rate FiO2 04/10/16 16:00 98.1 78 20 181/108 98 04/10/16 12:00 98.5 18 163/98 04/10/16 08:00 98.7 81 20 152/92 04/10/16 04:00 98.9 72 19 148/79 19 04/10/16 00:00 98.3 75 23 154/89 98 I/O 04/09/16 04/09/16 04/09/16 04/10/16 04/10/16 04/10/16 07:00 15:00 23:00 07:00 15:00 23:00 Intake Total 300 ml 0 ml 0 ml Output Total 1400 ml 300 ml Balance -1100 ml -300 ml 0 ml Intake Oral 300 ml IV Total 0 ml 0 ml 0 ml Output Urine Total 1400 ml 300 ml # Bowel Movements 0 0 0 Physical Exam GENERAL: Well-nourished, well-developed patient. SKIN: Warm and dry. HEAD: Normocephalic. EYES: No scleral icterus. No injection or drainage. NECK: Supple, trachea midline. No JVD or lymphadenopathy. CARDIOVASCULAR: Regular rate and rhythm without murmurs, gallops, or rubs. RESPIRATORY: Breath sounds equal bilaterally. No accessory muscle use. GASTROINTESTINAL: Abdomen soft, non-tender, nondistended. EXTREMITIES: No cyanosis, or edema. NEUROLOGICAL: Awake, alert, and oriented x 3. Non-focal. Assessment and Plan Problem List: (1) Unstable angina Assessment and Plan: Myocardial perfusion study results noted Will schedule for LHC +/- PCI today NPO aftermidnight Cont aggressive medical management for CAD Risk benefits of LHC/PCI including but not limited to neuro-vascular trauma, renal failure, emergent CABG, stroke and have been explain to the patient and he is willing to proceed. (2) CAD (coronary artery disease) (3) Chest pain (4) DM (diabetes mellitus) (5) Hypertensive urgency Problem Qualifiers (1) Chest pain: Qualified Code: R07.9 - Chest pain, unspecified type Jarrett No MD Apr 10, 2016 17:30
[2016-04-10] MEDS ORDERED: HEPARIN-NS/PF INJ 500 ML ONE (18:02)
[2016-04-10] MEDS ORDERED: IODIXANOL 320 MG/ML 100 ML VIAL (for Cath Lab) OTHER ONE (18:02)
[2016-04-10] MEDS ORDERED: VERAPAMIL HCL 5 MG/2 ML VIAL ONE (18:12)
[2016-04-10] MEDS ORDERED: HEPARIN SODIUM - IV 10,000 UNITS/10 ML VIAL ONE (18:12)
[2016-04-10] MEDS ORDERED: MIDAZOLAM HCL 2 MG/2 ML VIAL ONE ×2 (18:12→18:29)
[2016-04-10] MEDS ORDERED: NITROGLYCERIN INJ 5 ML ONE (18:14)
[2016-04-10] MEDS ORDERED: SODIUM CHLORIDE 0.9% FLUSH 5 ML FLUSH IVF PRN (19:15)
[2016-04-10] MEDS ORDERED: ONDANSETRON HCL 4 MG/2 ML VIAL IV PRN (19:15)
[2016-04-10] MEDS ORDERED: ATROPINE SULFATE 1 MG/ML VIAL IV PRN (19:15)
[2016-04-10] MEDS ORDERED: MISC INFORMATION XX ONE (19:15)
--- NOTE | 2016-04-10 19:41 | MA ---
cc: CHI DUDLEY DATE 04/10/2016 DATE OF 1970 PROCEDURES PERFORMED 1. Left heart catheterization. 2. Selective right and left coronary angiography. 3. Left ventricular pressure recordings. APPROACH Right transradial. INDICATION Angina / positive stress test / new-onset LV systolic dysfunction. DESCRIPTION OF PROCEDURE Consent signed. The patient was brought into the cardiac technical laboratory asst in fasting state. The right wrist and groins were prepped and draped in sterile fashion. Using 1% lidocaine for local anesthesia and a micropuncture kit, a 6-Bar[place] sheath was inserted into the right radial artery. Antispasmodic cocktail given. Then selective right and left coronary angiography was performed with a JR-4 and JL-3.5 diagnostic catheters. Angiography was performed in multiple views. The JR catheter was used to cross the left ventricle. Pressures were recorded followed by pullback. Left ventriculogram was not performed given that the patient has a known EF of 30%. The patient tolerated the procedure well without complications. Estimated blood loss less than 30 mL. The right radial access site was closed with a TR band. TOTAL CONTRAST USED 55cc RESULTS Left ventricle. The left ventricular pressure was 104/6 with an LVEDP of 8. The aortic pressure was 121/90 with a mean of 103. There was no gradient upon pullback from left ventricle to aorta. Angiography. 1. The left main is patent with nonobstructive CAD. 2. The LAD is a transapical vessel, it is diffusely diseased throughout. It has a 99% lesion proximally right before S1. It also has a mid distal lesion of about 90%. The first diagonal is diffusely diseased and has a proximal lesion of 80%. 3. The left circumflex has minimal luminal irregularities and nonobstructive coronary artery disease. 4. The right coronary artery is a dominant vessel giving off the PDA. It has 99 % blockage in its distal segment and a long tubular 50% lesion in its mid segment. CONCLUSION 1. Severe [place] three-vessel coronary artery disease. 2. Left LV systolic dysfunction. 3. Uncontrolled hypertension. RECOMMENDATIONS This is a 45-year-old male with known coronary artery disease, also with hypertension, diabetes, obesity, hyperlipidemia. Left heart cath shows severe three-vessel CAD. Given the patient's severe coronary artery disease, DM and LV dysfunction, the recommendation will be to consult CT surgery for possible CABG. In the meantime continue aggressive medical management for CAD. In case CT surgery turns him down for surgery, we can discuss high-risk PCI. MD ROSEMARIE De Luna/XOCHITL /6:56 PM /7:20 PM [facility]
[2016-04-10] MEDS: METOPROLOL TARTRATE 50 MG TAB PO SCH (20:44)
[2016-04-10] MEDS: SODIUM CHLORIDE 0.9% FLUSH 5 ML FLUSH IVF SCH (20:44)
[2016-04-10] MEDS ORDERED: METOPROLOL TARTRATE 50 MG TAB PO SCH ×2 (21:00)
[2016-04-11] VITALS: BP 134/64; PULSE 62; RESP 29; TEMP 98.5; O2SAT 62
[2016-04-11] MEDS: NITROGLYCERIN 2% OINT 1 GM PACKET TOPICAL SCH ×2 (00:15→05:22)
[2016-04-11] MEDS: cloNIDine HCL 0.2 MG TAB PO PRN (00:15)
[2016-04-11 04:00] VITALS: BP 120/67; PULSE 72; RESP 18; TEMP 98.2; O2SAT 98
[2016-04-11] MEDS: ISOSORBIDE MONONITRATE 30 MG TAB PO SCH (05:22)
[2016-04-11] MEDS: INSULIN ASPART SUPPLEMENTAL SCALE SQ SCH ×4 (05:23→20:19)
[2016-04-11 06:10] LABS: BICARBONATE 26.1 MEQ/L (21.0-32.0); MAGNESIUM 2.2 MG/DL (1.5-2.5); POTASSIUM 3.3 MEQ/L (3.5-5.1)
[2016-04-11] MEDS ORDERED: POTASSIUM CHLORIDE 25 MEQ EFFERVESCENT TAB PO ONE (06:30)
[2016-04-11] MEDS: SODIUM CHLORIDE 0.9% FLUSH 5 ML FLUSH IVF SCH ×2 (07:59→20:19)
[2016-04-11 08:00] VITALS: BP 120/67; PULSE 72; RESP 18; TEMP 98.2; O2SAT 98
[2016-04-11] MEDS: ATORVASTATIN 80 MG TAB PO SCH (08:00)
[2016-04-11] MEDS: LISINOPRIL 20 MG TAB PO SCH (08:01)
[2016-04-11] MEDS: METOPROLOL TARTRATE 50 MG TAB PO SCH ×2 (08:01→20:20)
[2016-04-11] MEDS: INSULIN HUMAN NPH 1,000 UNITS/10 ML VIAL SQ SCH (08:02)
[2016-04-11] MEDS: HYDROCHLOROTHIAZIDE 25 MG TAB PO SCH (08:02)
[2016-04-11] MEDS: ASPIRIN EC 81 MG TABEC PO SCH (08:03)
--- NOTE | 2016-04-11 10:56 | HHI.PR ---
Subjective Remarks The patient was resting comfortably in bed. He understood that he had to go for bypass surgery. He said he was constipated. He says he has not been ambulating much. Discussed with nursing. Objective Vitals Vital Signs Date Time Temp Pulse Resp B/P Pulse Ox O2 Delivery O2 Flow Rate FiO2 04/11/16 08:00 98.2 72 18 120/67 98 04/11/16 04:00 98.2 72 18 120/67 98 04/11/16 00:00 98.5 62 29 134/64 62 04/10/16 16:00 98.1 78 20 181/108 98 04/10/16 12:00 98.5 18 163/98 I/O 04/10/16 04/10/16 04/10/16 04/11/16 04/11/16 04/11/16 07:00 15:00 23:00 07:00 15:00 23:00 Intake Total 0 ml 0 ml 84 ml 300 ml Output Total 300 ml 0 ml 800 ml Balance -300 ml 0 ml 84 ml -500 ml Intake Oral 300 ml IV Total 0 ml 0 ml 84 ml 0 ml Output Urine Total 300 ml 0 ml 800 ml # Bowel Movements 0 0 0 0 Result Diagram: 04/09/16 1050 04/11/16 0511 Imaging Last Impressions Myocardial Perfusion Scan Nuc Med 04/09/16 0000 Signed Impressions: Service Date/Time: Saturday, April 09, 2016 12:39 - CONCLUSION: 1. Diminished perfusion is noted along the apical inferior wall with questionable redistribution on the rest images. 2. Dyskinesia of the inferior wall and global hypokinesis 3. Diminished ejection fraction at 36%%. RISK CATEGORY: Intermediate Anatoly Barbosa MD Chest X-Ray 04/08/161947 Signed Impressions: Service Date/Time: Friday, April 08, 2016 20:08 - CONCLUSION: The lungs are clear. Jose Smith MD Objective Remarks GENERAL: No apparent distress, resting comfortably. HEENT: PERRLA, EOMI. No scleral icterus or conjunctival pallor. No lid lag or facial droop. CARDIOVASCULAR: Regular rate and rhythm. Grade 1 systolic murmur appreciated. RESPIRATORY: No obvious rhonchi or wheezing. Clear to auscultation. Breath sounds equal bilaterally. GASTROINTESTINAL: Abdomen soft, non-tender, nondistended. BS normal. MUSCULOSKELETAL: Extremities without clubbing, cyanosis, or edema. No obvious deformities. NEUROLOGICAL: Awake, alert and oriented x4. No focal neurologic deficits. Moving both upper and lower extremities spontaneously. PSYCH: Mood and affect appropriate. Medications and IVs Current Medications Medications (Trade) Dose Ordered Sig/Sin Route Start Time Stop Time Status Last Admin (Ecotrin Ec) 81 mg DAILY PO 04/09/16 09:00 04/11/16 08:03 (D50w (Vial) Inj) 25 ml UNSCH PRN IV PUSH 04/08/16 22:30 (Glucagon Inj) 1 mg UNSCH PRN OTHER 04/08/16 22:30 (Dulcolax Supp) 10 mg DAILY PRN ND 04/08/16 22:30 (Tylenol) 650 mg Q6H PRN PO 04/08/16 22:30 ([place] 5-325 Mg) 1 tab Q4H PRN PO 04/08/16 22:30 (Morphine Inj) 2 mg Q3H PRN IV 04/08/16 22:30 (Lipitor) 80 mg DAILY PO 04/09/16 09:00 04/11/16 08:00 (Catapres) 0.2 mg Q6H PRN PO 04/09/16 09:30 04/11/16 00:15 (NovoLIN N INJ) 20 units DAILY SQ 04/09/16 09:45 04/11/16 08:02 (Prinivil) 40 mg DAILY PO 04/10/16 09:00 04/11/16 08:01 (Nitroglycerin 2% Oint) 1 inch Q6HR TOPICAL 04/09/16 15:45 04/11/16 05:22 (Hydrodiuril) 25 mg DAILY PO 04/10/16 14:00 04/11/16 08:02 (Lopressor) 100 mg Q12HR PO 04/10/16 21:00 04/11/16 08:01 (Imdur) 30 mg DAILY@07 PO 04/11/16 07:00 04/11/16 05:22 (NS Flush) 2 ml BID IVF 04/10/16 21:00 04/11/16 07:59 (NS Flush) 2 ml UNSCH PRN IVF 04/10/16 19:15 (Atropine Inj) 0.5 mg UNSCH PRN IV 04/10/16 19:15 (Zofran Inj) 4 mg Q4H PRN IV 04/10/16 19:15 A/P Problem List: (1) Chest pain ICD Code: R07.9 Status: Acute (2) CAD (coronary artery disease) ICD Code: I25.10 Status: Acute (3) Hypertensive urgency ICD Code: I16.0 Status: Acute (4) DM (diabetes mellitus) ICD Code: E11.9 Status: Acute Assessment and Plan Chest pain History of stents x 2. Exertional, associated w/ SOB, ongoing x1 wk, progressively worse. Troponin peaked at 0.05. EKG w/ no acute ischemia. CXR with no acute findings. LDL elevated. Cardiology consult appreciated. Stress test positive so pt went for cardiac cath 04/10 which revealed severe 3v CAD. - continue ASA, Metoprolol, statin, ACEi. - pain control and oxygen as needed. - telemetry. - CT surgery consult for CABG. Hypertensive urgency BP on arrival 215/123, started on Nitro gtt in ER, BP improved. - d/c Nitro paste. - Metoprolol 50 mg bid, lisinopril 40 mg daily. Added HCTZ 25 mg daily. - clonidine as needed. - consider MRA of the renal arteries to rule out BRIAN. DM On metformin as an outpt. He says his sugars have been out of control at home. Improved at the hospital. A1c 10.3%. - Sliding scale w/ Accu-Cheks. - Hold Metformin. - continue NPH 20 units daily. - clinical educator consult. DVT Prophylaxis: Heparin. Discharge Planning Awaiting clinical improvement. Problem Qualifiers (1) Chest pain: Qualified Code: R07.9 - Chest pain, unspecified type Sincere Reyes DO Apr 11, 2016 10:56
[2016-04-11] MEDS ORDERED: POLYETHYLENE GLYCOL 17 GM PKG PO ONE (11:00)
[2016-04-11] MEDS: SENNOSIDES 8.6 MG TAB PO SCH (11:23)
[2016-04-11] MEDS: DOCUSATE SODIUM 100 MG CAP PO SCH ×2 (11:23→20:19)
[2016-04-11 12:00] VITALS: BP 123/73; PULSE 64; RESP 14; TEMP 97.8; O2SAT 98
--- NOTE | 2016-04-11 13:19 | MB ---
cc: GERARDO MARTINEZ MD DATE OF CONSULTATION: 04/11/2016 1970 HISTORY OF PRESENT ILLNESS A 45-year-old male who apparently had loss of insurance and has been somewhat noncompliant with some of his medications but now apparently that has changed and he still has been able to take his metformin and blood pressure med. He has a history of having a stent to the RCA in 2009 and then started having some fatigue on minimal exertion as well as some chest discomfort across his chest with radiation, presented to the emergency department. He denied having any recent chills, fever, cough, no nausea, vomiting, no chest trauma. On arrival his blood pressure was elevated at 215/120 and heart rate was 99. They started a nitro drip and the pain resolved. He had a myocardial perfusion scan which showed an EF of 36%, dyskinesia to the inferior wall and global hypokinesis. He underwent cardiac cath by Dr. Jarrett Merino yesterday afternoon which showed multivessel disease including 99% proximal LAD, mild distal LAD of 90%, the first diagonal 80% stenosed and RCA 99% distal stenosed. We were consulted to evaluate for coronary artery bypass grafting. PAST MEDICAL HISTORY The patient's past medical history is significant for: 1. Coronary artery disease. 2. Hypertension. 3. Diabetes mellitus. 4. Hyperlipidemia. 5. Obesity with a BMI of 43. PAST SURGERIES Include the stent. No other surgeries, per the patient. ALLERGIES He has allergies to PENICILLIN. MEDICATION Apparently he has been taking clonidine and metformin at home. FAMILY HISTORY He estranged from his father. Mother has history of dementia. SOCIAL HISTORY The patient is and has four children. Smoked remotely for 4 years one-pack, he quit 15 years ago. No alcohol. No illicit drugs. 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 REVIEW OF SYSTEMS GENERAL: No night sweats, fever, heat and cold intolerance. SKIN: No psoriasis, itching or hives. HEENT: No blurred vision, hearing loss. RESPIRATORY: No cough, shortness of breath. CARDIOVASCULAR: As above in HPI. GASTROINTESTINAL: No diarrhea, vomiting. GENITOURINARY: No burning, frequency, urgency. COLOR PRINT INSPECTOR: No history of TIA, CVA, seizure disorder. ENDOCRINOLOGY: Positive for diabetes. PHYSICAL EXAMINATION VITAL SIGNS: Blood pressure now 134/64, heart rate of 72, afebrile, on room air at 98%. GENERAL: The patient is awake, alert, in no acute distress. HEENT: Head is normocephalic, atraumatic. Pupils equal and reactive. Oral mucosa pink, moist. NECK: Supple. No JVD. HEART: Heart sounds S1-S2, regular rate and rhythm. No audible rubs, murmurs or gallops. LUNGS: Clear to auscultation. No wheezes, rales or rhonchi. ABDOMEN: Abdomen is soft, nontender. No masses or organomegaly. EXTREMITIES: No cyanosis, clubbing or edema. LABORATORY DATA Lab work shows hemoglobin of 13, hematocrit 39, white cell count of 8, platelet count of 209, sodium 140, potassium 3.3, BUN of 15, creatinine 0.92, glucose of 195, hemoglobin A1c is 10.3, triglycerides 75, cholesterol 235, LDL 170, HDL of 49. Troponin 0.05, INR 0.9. MRSA negative. IMAGING STUDIES Chest x-ray unremarkable. EKG Normal sinus rhythm with nonspecific T-wave changes, some LVH by EKG criteria. IMPRESSION This is a 45-year-old male that has a history of coronary artery disease, prior PCI in 2009 at [facility] [place], at that time had an EF of 40%. He was stented with two drug-eluting stents at that time. He has unfortunately had loss of insurance and which he has now reobtained and has been noncompliant with some of his medication. He has uncontrolled diabetes mellitus, uncontrolled hypertension which currently he is now on Imdur, beta mu, HCTZ, JAYJAY inhibitor, clonidine p.r.n. and also statin. We have been asked to evaluate for coronary artery bypass grafting. Cardiac films will be evaluated by Dr. Gerardo Martinez, at that time procedures, alternatives and risks, also STS data will be discussed with the patient and evaluate for timing for coronary artery bypass grafting. Dictated by: MARIEL Castañeda Agree with above. Discussed findings with patient and . Planned OR for Saturday. Thanks. Gerardo RODAS/DARIEL /11:15 AM /12:49 PM [facility]
[2016-04-11] MEDS ORDERED: METOPROLOL TARTRATE 25 MG TAB PO SCH (15:45)
[2016-04-11] MEDS ORDERED: CHLORHEXIDINE GLUCONATE 4% SOLN 120 ML BTL TOPICAL SCH (15:45)
[2016-04-11] MEDS ORDERED: VANCOMYCIN INJ 1,750 MG in SODIUM CHLORID 0.9% 500 ML INJ 500 ML IV SCH (15:45)
[2016-04-11] MEDS ORDERED: PAPAVERINE INJ 60 MG, NITROGLYCERIN INJ 100 MCG, DILTIAZEM INJ 100 MG in SODIUM CHLORID... IRRIGATION SCH (15:45)
[2016-04-11] MEDS ORDERED: SODIUM CHLORIDE 0.9% FLUSH 5 ML FLUSH IV FLUSH PRN (15:45)
[2016-04-11] MEDS ORDERED: VANCOMYCIN INJ 1,000 MG in SODIUM CHLORIDE 0.9% IRR BTL 1,000 ML IRRIGATION SCH (15:45)
[2016-04-11] MEDS ORDERED: INSULIN REGULAR (IV INFUSION) 100 UNITS in SODIUM CHLORIDE 0.9% INJ 100 ML IV SCH (15:45)
[2016-04-11 16:00] VITALS: BP 137/80; PULSE 69; RESP 17; TEMP 98.5; O2SAT 98
--- NOTE | 2016-04-11 17:38 | RADRPT ---
EXAM DATE/TIME: 04/11/2016 16:46 [facility] COMPARISON: No previous studies available for comparison. INDICATIONS : Pre-op cardiac surgery. MEDICAL HISTORY : Hypercholesterolemia. Gold caps on teeth. Nearsighted. SURGICAL HISTORY : Cardiac stents times 2 in 2006. ENCOUNTER: Initial ACUITY: 1 day PAIN SCORE: 0/10 LOCATION: Bilateral neck PEAK SYSTOLIC VELOCITIES (cm/sec): ICA/CCA RATIO: Right: 0.8 Left: 0.5 ICA: Right: 53 Left: 53 CCA: Right: 64 Left: 100 ECA: Right: 97 Left: 60 VERTEBRAL: Right: 17 antegrade Left: 49 antegrade Elevated flow velocities and ICA/CCA ratios have been found to correlate with increased degrees of vessel stenosis, calculated as percentage of diameter relative to a normal segment of distal ICA/CCA FINDINGS: Ultrasound of the carotid arteries was performed bilaterally using real-time Doppler and color Dopple r imaging. Examination of the right carotid artery demonstrates mild fibrous plaque within the bifurcation. No w aveform abnormalities are identified and no spectral broadening is seen. Examination of the left li tid artery demonstrates mild fibrous plaque within the bulb. No waveform abnormalities are identified and no spectral broadening is seen. There is antegrade flow in both vertebral arteries. CONCLUSION: No evidence of hemodynamically significant lesion. Ramon Shelton MD on April 11, 2016 at 17:36 Board Certified Radiologist. This report was verified electronically.
--- NOTE | 2016-04-11 17:40 | RADRPT ---
EXAM DATE/TIME: 04/11/2016 15:57 [facility] COMPARISON: No previous studies available for comparison. INDICATIONS : Pre-op cardiac surgery. MEDICAL HISTORY : Hypercholesterolemia. Gold caps on teeth. Nearsighted. SURGICAL HISTORY : Coronary stents times 2 on 2006. ENCOUNTER: Initial ACUITY: 1 day PAIN SCORE: 0/10 LOCATION: Bilateral legs. TECHNIQUE: Venous ultrasound of the left and right leg was performed from the inguinal ligament to the proximal calf. Real-time, color Doppler and spectral tracing, compression and augmentation techniques were us ed. FINDINGS: RIGHT LEG: There is normal compressibility of the deep venous system from the inguinal region to the proximal ca lf. No echogenic clot is seen in the lumen of the common femoral, femoral, popliteal, and posterior tibial veins. There is a normal response of the venous system to proximal and distal augmentation an d respiration. LEFT LEG: There is normal compressibility of the deep venous system from the inguinal region to the proximal ca lf. No echogenic clot is seen in the lumen of the common femoral, femoral, popliteal, and posterior tibial veins. There is a normal response of the venous system to proximal and distal augmentation an d respiration. CONCLUSION: 1. No evidence of deep venous thrombosis. Ramon Shelton MD on April 11, 2016 at 17:38 Board Certified Radiologist. This report was verified electronically.
--- NOTE | 2016-04-11 17:48 | RADRPT ---
EXAM DATE/TIME: 04/11/2016 16:08 [facility] COMPARISON: No previous studies available for comparison. INDICATIONS : Pre-op cardiac surgery. MEDICAL HISTORY : Hypercholesterolemia. Gold caps on teeth. Nearsighted. SURGICAL HISTORY : Coronary stent times 2 in 2006. ENCOUNTER: Initial ACUITY: 1 day PAIN SCORE: 0/10 LOCATION: Bilateral legs. GREATER SAPHENOUS VEIN THIGH: PROXIMAL: Right 4 mm Left 5 mm MID: Right 4 mm Left 4 mm DISTAL: Right 3 mm Left 2 mm CALF: PROXIMAL: Right 2 mm Left 2 mm MID: Right 2 mm Left 2 mm DISTAL: Right 2 mm Left 2 mm FINDINGS: The venous system of the lower extremities are patent by color Doppler imaging. Measurements of the leg veins (in mm) are listed above. CONCLUSION: 1. Venous mapping as above Ramon Shelton MD on April 11, 2016 at 17:47 Board Certified Radiologist. This report was verified electronically.
[2016-04-11 20:00] VITALS: BP 142/81; PULSE 76; RESP 19; TEMP 98.6
[2016-04-11] MEDS: SODIUM CHLORIDE 0.9% FLUSH 5 ML FLUSH IV FLUSH SCH (20:19)
[2016-04-11 22:12] LABS: HEMOGLOBIN A1a 0.8 %; HEMOGLOBIN A1b 0.9 %; HEMOGLOBIN Ao 79.5 %; HEMOGLOBIN F 1.4 %; HEMOGLOBIN LA1C 2.2 %; HEMOGLOBIN P3 4.2 %
[2016-04-12] VITALS: BP 146/88; PULSE 66; RESP 17; O2SAT 96
[2016-04-12 04:00] VITALS: BP 169/96; PULSE 69; RESP 15; TEMP 98.5; O2SAT 94
[2016-04-12] MEDS: cloNIDine HCL 0.2 MG TAB PO PRN (05:04)
[2016-04-12] MEDS: ISOSORBIDE MONONITRATE 30 MG TAB PO SCH (06:18)
[2016-04-12] MEDS: INSULIN ASPART SUPPLEMENTAL SCALE SQ SCH ×4 (06:18→20:55)
[2016-04-12 06:31] LABS: BICARBONATE 26.1 MEQ/L (21.0-32.0)
[2016-04-12 08:00] VITALS: BP 168/102; PULSE 91; RESP 18; TEMP 98.4; O2SAT 96
[2016-04-12] MEDS: METOPROLOL TARTRATE 50 MG TAB PO SCH ×2 (08:46→21:26)
[2016-04-12] MEDS: ASPIRIN EC 81 MG TABEC PO SCH (08:46)
[2016-04-12] MEDS: SODIUM CHLORIDE 0.9% FLUSH 5 ML FLUSH IV FLUSH SCH ×2 (08:47→21:26)
[2016-04-12] MEDS: SENNOSIDES 8.6 MG TAB PO SCH (08:47)
[2016-04-12] MEDS: DOCUSATE SODIUM 100 MG CAP PO SCH ×2 (08:47→21:26)
[2016-04-12] MEDS: HYDROCHLOROTHIAZIDE 25 MG TAB PO SCH (08:47)
[2016-04-12] MEDS: SODIUM CHLORIDE 0.9% FLUSH 5 ML FLUSH IVF SCH ×2 (08:47→21:00)
[2016-04-12] MEDS: ATORVASTATIN 80 MG TAB PO SCH (08:47)
[2016-04-12] MEDS: INSULIN HUMAN NPH 1,000 UNITS/10 ML VIAL SQ SCH (08:48)
[2016-04-12] MEDS: POTASSIUM CHLORIDE 20 MEQ CONTROLLED RELEASE TAB PO SCH ×3 (09:41→18:27)
[2016-04-12 12:00] VITALS: BP 129/65; PULSE 70; RESP 18; TEMP 98.5
--- NOTE | 2016-04-12 13:36 | HHI.PR ---
Subjective Remarks The patient was anxious for surgery tomorrow. He said he had no shortness of breath or chest pain. He said he has been ambulating. He said he had a bowel movement. He has been eating. No acute complaints. Discussed with nursing. Objective Vitals Vital Signs Date Time Temp Pulse Resp B/P Pulse Ox O2 Delivery O2 Flow Rate FiO2 04/12/16 04:00 98.5 69 15 169/96 94 04/12/16 00:00 66 17 146/88 96 04/11/16 20:00 98.6 76 19 142/81 04/11/16 16:00 98.5 69 17 137/80 98 I/O 04/11/16 04/11/16 04/11/16 04/12/16 04/12/16 04/12/16 07:00 15:00 23:00 07:00 15:00 23:00 Intake Total 300 ml 400 ml 480 ml Output Total 800 ml 600 ml 800 ml Balance -500 ml -200 ml 480 ml -800 ml Intake Oral 300 ml 400 ml 480 ml IV Total 0 ml 0 ml Output Urine Total 800 ml 600 ml 800 ml # Voids 2 # Bowel Movements 0 0 Result Diagram: 04/09/16 1050 04/12/16 0519 Imaging Last Impressions Lower Extremity Ultrasound 04/11/16 0000 Signed Impressions: Service Date/Time: Monday, April 11, 2016 16:08 - CONCLUSION: 1. Venous mapping as above Ramon Shelton MD Carotid Artery Ultrasound 04/11/16 0000 Signed Impressions: Service Date/Time: Monday, April 11, 2016 16:46 - CONCLUSION: No evidence of hemodynamically significant lesion. Ramon Shelton MD Myocardial Perfusion Scan Nuc Med 04/09/16 0000 Signed Impressions: Service Date/Time: Saturday, April 09, 2016 12:39 - CONCLUSION: 1. Diminished perfusion is noted along the apical inferior wall with questionable redistribution on the rest images. 2. Dyskinesia of the inferior wall and global hypokinesis 3. Diminished ejection fraction at 36%%. RISK CATEGORY: Intermediate Anatoly Barbosa MD Chest X-Ray 04/08/161947 Signed Impressions: Service Date/Time: Friday, April 08, 2016 20:08 - CONCLUSION: The lungs are clear. Jose Smith MD Objective Remarks GENERAL: No apparent distress, resting comfortably. HEENT: PERRLA, EOMI. No scleral icterus or conjunctival pallor. No lid lag or facial droop. CARDIOVASCULAR: Regular rate and rhythm. Grade 1 systolic murmur appreciated. RESPIRATORY: No obvious rhonchi or wheezing. Clear to auscultation. Breath sounds equal bilaterally. GASTROINTESTINAL: Abdomen soft, non-tender, nondistended. BS normal. MUSCULOSKELETAL: Extremities without clubbing, cyanosis, or edema. No obvious deformities. NEUROLOGICAL: Awake, alert and oriented x4. No focal neurologic deficits. Moving both upper and lower extremities spontaneously. PSYCH: Mood and affect appropriate. Medications and IVs Current Medications Medications (Trade) Dose Ordered Sig/Sin Route Start Time Stop Time Status Last Admin (Ecotrin Ec) 81 mg DAILY PO 04/09/16 09:00 04/12/16 08:46 (D50w (Vial) Inj) 25 ml UNSCH PRN IV PUSH 04/08/16 22:30 (Glucagon Inj) 1 mg UNSCH PRN OTHER 04/08/16 22:30 (Dulcolax Supp) 10 mg DAILY PRN [place] 04/08/16 22:30 (Tylenol) 650 mg Q6H PRN PO 04/08/16 22:30 (Mills 5-325 Mg) 1 tab Q4H PRN PO 04/08/16 22:30 (Morphine Inj) 2 mg Q3H PRN IV 04/08/16 22:30 (Lipitor) 80 mg DAILY PO 04/09/16 09:00 04/12/16 08:47 (Catapres) 0.2 mg Q6H PRN PO 04/09/16 09:30 04/12/16 05:04 (NovoLIN N INJ) 20 units DAILY SQ 04/09/16 09:45 04/12/16 08:48 (Hydrodiuril) 25 mg DAILY PO 04/10/16 14:00 04/12/16 08:47 (Lopressor) 100 mg Q12HR PO 04/10/16 21:00 04/12/16 08:46 (Imdur) 30 mg DAILY@07 PO 04/11/16 07:00 04/12/16 06:18 (NS Flush) 2 ml BID IVF 04/10/16 21:00 04/12/16 08:47 (NS Flush) 2 ml UNSCH PRN IVF 04/10/16 19:15 (Atropine Inj) 0.5 mg UNSCH PRN IV 04/10/16 19:15 (Zofran Inj) 4 mg Q4H PRN IV 04/10/16 19:15 (Colace) 100 mg BID PO 04/11/16 11:00 04/11/16 20:19 (Senokot) 17.2 mg DAILY PO 04/11/16 11:00 04/11/16 11:23 (NS Flush) 2 ml BID IV FLUSH 04/11/16 21:00 04/12/16 08:47 (NS Flush) 2 ml UNSCH PRN IV FLUSH 04/11/16 15:45 (KCl) 40 meq Q4H PO 04/12/16 10:00 04/12/16 18:01 04/12/16 12:30 A/P Problem List: (1) Chest pain ICD Code: R07.9 Status: Acute (2) CAD (coronary artery disease) ICD Code: I25.10 Status: Acute (3) Hypertensive urgency ICD Code: I16.0 Status: Acute (4) DM (diabetes mellitus) ICD Code: E11.9 Status: Acute Assessment and Plan Chest pain/ CAD History of stents x 2. Exertional, associated w/ SOB, ongoing x1 wk, progressively worse. Troponin peaked at 0.05. EKG w/ no acute ischemia. CXR with no acute findings. LDL elevated. Cardiology consult appreciated. Stress test positive so pt went for cardiac cath 04/10 which revealed severe 3v CAD. Appreciate cardiothoracic surgery eval. - continue ASA, Metoprolol, statin, ACEi. - pain control and oxygen as needed. - telemetry. - CT surgery planning on CABG in a.m. Hypertensive urgency BP on arrival 215/123, started on Nitro gtt in ER, BP stable. - d/c Nitro paste. - Metoprolol 100 mg bid, lisinopril 40 mg daily. Added HCTZ 25 mg daily. - clonidine as needed. - consider MRA of the renal arteries to rule out BRIAN. DM On metformin as an outpt. He says his sugars have been out of control at home. Improved at the hospital. A1c 10.3%. - Sliding scale w/ Accu-Cheks. - Hold Metformin. - continue NPH 20 units daily. - certified adapted physical educator consult. Hypokalemia Likely exacerbated by diuretic use. - replete and monitor. DVT Prophylaxis: Heparin. Discharge Planning CABG in AM. Problem Qualifiers (1) Chest pain: Qualified Code: R07.9 - Chest pain, unspecified type Sincere Reyes DO Apr 12, 2016 13:36
--- NOTE | 2016-04-12 15:16 | PD.CAR.PN ---
CVT Progress Note Subjective/Hospital Course: sts data discussed with pt RISK SCORES About the STS Risk Calculator Procedure: CAB Only Risk of Mortality: 0.581% Morbidity or Mortality: 13.222% Long Length of Stay: 3.876% Short Length of Stay: 50.154% Permanent Stroke: 0.55% Prolonged Ventilation: 10.336% 04/12 45 male presented to ED with c/o of fatigue and chest pain off and on x one week , he admts to some noncompliance with meds due to change of insurance was found to be very hypertensive on admission SBP 215/120, he was started on NTG gtt , now off , underwent myocardial perfusion scan : EF 36 % dyskinesia of inferior wall, global hypokinesis Underwent Heart Cath: 3 vessel disease EF 30% 99% prox LAD, 90% mid distal LAD , 80% first diagonal, 99% RCA pt is now scheduled for Off pump CABG x 2 in am he has been pain free DSW Infection: 0.638% Renal Failure: 2.211% Reoperation: 4.132% Objective: GENERAL: SKIN: Warm and dry. HEAD: Normocephalic. EYES: No scleral icterus. No injection or drainage. NECK: Supple, trachea midline. No JVD or lymphadenopathy. CARDIOVASCULAR: Regular rate and rhythm without murmurs, gallops, or rubs. RESPIRATORY: Breath sounds equal bilaterally. No accessory muscle use. GASTROINTESTINAL: Abdomen soft, non-tender, nondistended. MUSCULOSKELETAL: No cyanosis, or edema. BACK: Nontender without obvious deformity. No CVA tenderness. Vital Signs Date Time Temp Pulse Resp B/P Pulse Ox O2 Delivery O2 Flow Rate FiO2 04/12/16 04:00 98.5 69 15 169/96 94 04/12/16 00:00 66 17 146/88 96 04/11/16 20:00 98.6 76 19 142/81 04/11/16 16:00 98.5 69 17 137/80 98 Labs: Laboratory Tests Test 04/12/16 04/12/16 05:19 07:22 Sodium Level 139 MEQ/L (136-145) Potassium Level 3.0 MEQ/L (3.5-5.1) Chloride Level 103 MEQ/L (98-107) Carbon Dioxide Level 26.1 MEQ/L (21.0-32.0) Anion Gap 10 MEQ/L (5-15) Blood Urea Nitrogen 15 MG/DL (7-18) Creatinine 0.94 MG/DL (0.60-1.30) Estimat Glomerular Filtration 104 ML/MIN Rate (>89) Random Glucose 170 MG/DL (74-106) Calcium Level 8.4 MG/DL (8.5-10.1) Blood Type AB POSITIVE AB POSITIVE Antibody Screen NEGATIVE Crossmatch Leukocyte-Reduced Red Blood Cells Blood Bank Comment Result Diagram: 04/09/16 1050 04/12/16 0519 Telemetry: NSR (1) Unstable angina Plan: (2) CAD (coronary artery disease) Plan: pt is on statin , ASA. BB scheduled for OR in am (3) Chest pain (4) DM (diabetes mellitus) Problem Qualifiers (1) Chest pain: Qualified Code: R07.9 - Chest pain, unspecified type Nancy Roman Apr 12, 2016 15:16
[2016-04-12 16:00] VITALS: BP 128/75; PULSE 77; RESP 18; TEMP 98.3
[2016-04-12 17:37] LABS: BLOOD, URINE NEG (NEG); GLUCOSE,URINE TRACE mg/dL (NEG); HYALINE CAST, URINE 1 /lpf (RARE); KETONE, URINE NEG (NEG); NITRITE,URINE NEG (NEG); PH, URINE 5.5 (5.0-8.5); URINE COLOR LIGHT-YELLOW (YELLW/STRAW)
[2016-04-12 17:39] LABS: COMMENT (UR) CULT NOT INDICATED; CULTURE IF INDICATED CULT NOT INDICATED
[2016-04-12 20:00] VITALS: BP 160/87; PULSE 77; RESP 20; TEMP 98.7
[2016-04-13] VITALS (11 sets, daily range): BP systolic 94–189; BP diastolic 53–102; PULSE 72–124; RESP 11–25; TEMP 98.4–98.9; O2SAT 89–98
[2016-04-13] MEDS: cloNIDine HCL 0.2 MG TAB PO PRN (00:13)
[2016-04-13 05:04] LABS: HEMATOCRIT 41.7 % (39.0-51.0); MEAN CELL VOLUME 80.7 FL (80.0-100.0); MEAN CORPUSCULAR HEMOGLOBIN 26.8 PG (27.0-34.0); MEAN CORPUSCULAR HGB CONC 33.2 % (32.0-36.0); PLATELET COUNT 217 TH/MM3 (150-450); RED BLOOD COUNT 5.17 MIL/MM3 (4.50-5.90); RED CELL DISTRIBUTION WIDTH 14.3 % (11.6-17.2); REVIEW FLAG FINAL; WHITE BLOOD COUNT 6.2 TH/MM3 (4.0-11.0)
[2016-04-13 05:33] LABS: BICARBONATE 26.3 MEQ/L (21.0-32.0); MAGNESIUM 2.2 MG/DL (1.5-2.5); POTASSIUM 3.2 MEQ/L (3.5-5.1)
[2016-04-13] MEDS: ISOSORBIDE MONONITRATE 30 MG TAB PO SCH (06:10)
[2016-04-13] MEDS: INSULIN ASPART SUPPLEMENTAL SCALE SQ SCH ×4 (06:10→21:00)
[2016-04-13] MEDS ORDERED: VANCOMYCIN HCL 1000 MG VIAL ONE (06:27)
[2016-04-13] MEDS ORDERED: HEPARIN SODIUM - SQ 10,000 UNITS/ML VIAL ONE (06:28)
[2016-04-13] MEDS ORDERED: HEPARIN SODIUM - IV 10,000 UNITS/10 ML VIAL ONE (06:28)
[2016-04-13] MEDS ORDERED: SUGAMMADEX SODIUM 200 MG/2 ML VIAL IV PUSH ONE ×2 (06:39)
[2016-04-13] MEDS ORDERED: POTASSIUM CHLOR 40 MEQ PREMIX 100 ML ONE ×2 (08:16→10:14)
[2016-04-13] MEDS: INSULIN HUMAN NPH 1,000 UNITS/10 ML VIAL SQ SCH (09:00)
[2016-04-13] MEDS: ATORVASTATIN 80 MG TAB PO SCH (09:00)
[2016-04-13] MEDS: HYDROCHLOROTHIAZIDE 25 MG TAB PO SCH (09:00)
[2016-04-13] MEDS: SENNOSIDES 8.6 MG TAB PO SCH (09:00)
[2016-04-13] MEDS: DOCUSATE SODIUM 100 MG CAP PO SCH ×2 (09:00→21:43)
[2016-04-13] MEDS: METOPROLOL TARTRATE 50 MG TAB PO SCH ×2 (09:00→22:14)
[2016-04-13] MEDS ORDERED: DOBUTamine PREMIX DRIP 250 ML IV SCH (11:04)
[2016-04-13] MEDS ORDERED: LACTATED RINGER'S 1000 ML INJ 500 ML IV PRN (11:04)
[2016-04-13] MEDS ORDERED: SODIUM CHLOR 0.9% 250 ML INJ 500 ML IV ONE (11:11)
[2016-04-13] MEDS ORDERED: ePHEDrine/NS 25 MG/5 ML SYR IV ONE (11:11)
[2016-04-13] MEDS ORDERED: SODIUM CHLORID 0.9% 500 ML INJ 500 ML IV ONE (11:11)
[2016-04-13] MEDS ORDERED: PHENYLEPH/NS 1000 MCG/10 ML SYR IV ONE (11:11)
[2016-04-13] MEDS ORDERED: PROTAMINE SULFATE 250 MG/25 ML VIAL IV ONE ×2 (11:11→14:57)
[2016-04-13] MEDS ORDERED: NORMOSOL R INJ 2,000 ML IV ONE (11:11)
[2016-04-13] MEDS ORDERED: VECURONIUM BROMIDE 20 MG VIAL IV ONE (11:11)
[2016-04-13] MEDS ORDERED: LACTATED RINGER'S 1000 ML INJ 2,000 ML IV ONE (11:11)
[2016-04-13] MEDS ORDERED: DEXMEDETOMIDINE HCL 200 MCG/2 ML VIAL IV ONE (11:11)
--- NOTE | 2016-04-13 11:12 | PD.OP ---
cc: Jarrett No MD; Lyndon Smiley MD Operative Report Date of Surgery: Apr 13, 2016 Preoperative Diagnosis: Postoperative Diagnosis: Procedure: 1. Urgent Off-pump Coronary Artery Bypass Grafting x 2 with left internal mammary artery (WANG) to left anterior descending (LAD), reverse saphenous vein graft to RPDA 2. Right Leg Endoscopic Vein [place] 3. Intraoperative Vein Mapping. . Surgeon: Lyndon Smiley Web Press Roll Tender(s): Carolina Martell Operation and Findings: PREPROCEDURE DIAGNOSES 1. Multi-Vessel Coronary Artery Disease. 2. Diabetes 3. Severe Left Ventricular Dysfunction 4. Unstable Angina POSTPROCEDURE DIAGNOSES Same SURGICAL PROCEDURE 1. Urgent Off-pump Coronary Artery Bypass Grafting x 2 with left internal mammary artery (WANG) to left anterior descending (LAD), reverse saphenous vein graft to RPDA 2. Right Leg Endoscopic Vein [place] 3. Intraoperative Vein Mapping. SURGEON Lyndon Smiley MD SCIENTIFIC DIVER VIRIDIANA Will CSFA ANESTHESIA General endotracheal . AUDIO VISUAL PRODUCTION SPECIALIST LAZARO Maldonado MD PREPARATION ChloraPrep. COUNTS Needle, sponge, and instrument counts were correct. DRAINS Two 32-Kinyarwanda mediastinal tubes. COMPLICATIONS None. INDICATIONS FOR PROCEDURE The patient is a 45-year-old presenting with chest pain. Patient was noted to have LAD and RCA coronary artery disease. The patient is being brought to the operating room for surgical revascularization therapy. PROCEDURE Patient was brought to the operating room and placed supine on the OR table. Following the induction of adequate general endotracheal anesthesia and placement of appropriate monitoring devices, intraoperative vein mapping was performed which revealed suitable-caliber conduit in bilateral lower extremities. The patient was then prepped and draped in standard sterile fashion. Next, 2500 units of intravenous heparin was given. The right greater saphenous vein was harvested endoscopically. This appeared to be a useable- caliber conduit. Simultaneously, a median sternotomy was performed and the left internal mammary artery dissected free off the posterior sternal table. The patient was systemically heparinized and anticoagulation monitored by serial ACT measurements. The internal mammary artery had good pulsatile flow in it and was a good-caliber conduit. The pericardium was then divided in the midline , the cradle created and targets analyzed. At this point, all anastomoses were performed in a beating-heart fashion using the Maquet stabilizing system. The left internal mammary artery was anastomosed to the mid LAD in an end-to-side fashion using 7-0 Prolene. Segment of saphenous vein graft was then anastomosed to the RPDA branch of the RCA in an end-to-side fashion using 7-0 Prolene. The proximal anastomosis was then constructed to the ascending aorta in a running manner using 6-0 Prolene. All anastomotic sites were inspected and appeared to be hemostatic and patent. Protamine solution was given. Strict hemostasis was assured. The closure was undertaken. 2 chest tubes were placed. The pericardium was reapproximated in the midline. The sternum was approximated using sternal wires. The muscular and fascial layer were then closed in 3 layers. The endoscopic vein harvest site was closed in 2 layers. The patient tolerated the procedure well and was transferred to CVICU in stable condition. Lyndon Smiley MD Apr 13, 2016 11:12
[2016-04-13] MEDS ORDERED: EPINEPHrine (1:1000) INJ 4 MG in DEXTROSE 5% IN WATER INJ 246 ML IV SCH ×2 (11:15)
[2016-04-13] MEDS ORDERED: ACETAMINOPHEN 325 MG TAB PO PRN (11:15)
[2016-04-13] MEDS ORDERED: ONDANSETRON HCL 4 MG/2 ML VIAL IV PUSH PRN (11:15)
[2016-04-13] MEDS ORDERED: hydrALAZINE HCL 20 MG/ML VIAL IV PRN (11:15)
[2016-04-13] MEDS ORDERED: ALBUMIN HUMAN 5% 12.5 GM/250 ML BOTTLE IV PRN (11:15)
[2016-04-13] MEDS ORDERED: PHENYLEPHRINE INJ 40 MG in DEXTROSE 5% IN WATE 500 ML INJ 496 ML IV SCH ×2 (11:15)
[2016-04-13] MEDS ORDERED: Post-op Orders (for Pharmacy) MISC OTHER ONE (11:15)
[2016-04-13] MEDS ORDERED: DEXMEDETOMIDINE INJ 50 ML IV SCH (11:15)
[2016-04-13] MEDS ORDERED: MEPERIDINE HCL 25 MG/ML VIAL IV PRN (11:15)
[2016-04-13] MEDS ORDERED: INSULIN REGULAR (IV INFUSION) 100 UNITS in SODIUM CHLORIDE 0.9% INJ 99 ML IV SCH (11:15)
[2016-04-13] MEDS ORDERED: CALCIUM CHLORIDE 10% 1 GRAM/10 ML VIAL IV PRN (11:15)
[2016-04-13] MEDS ORDERED: ACETAMINOPHEN 650 MG SUPP RECTAL PRN (11:15)
[2016-04-13] MEDS ORDERED: SODIUM CHLORIDE 0.9% FLUSH 5 ML FLUSH IV FLUSH PRN (11:15)
[2016-04-13] MEDS ORDERED: NITROGLYCERIN-DEXTROSE INJ 250 ML IV SCH (11:15)
[2016-04-13] MEDS ORDERED: oxyCODONE/ACETAMINOPHEN 5 MG/325 MG TAB PO PRN (11:15)
[2016-04-13] MEDS ORDERED: MAGNESIUM SULFATE INJ 2 GM in SODIUM CHLORIDE 0.9% INJ 100 ML IV PRN (11:15)
[2016-04-13] MEDS ORDERED: DEXTROSE 50% IN WATER 50 ML VIAL(D50) IV PUSH PRN (11:15)
[2016-04-13] MEDS ORDERED: CLEVIDIPINE INJ 50 ML IV SCH (11:15)
[2016-04-13] MEDS ORDERED: MORPHINE SULFATE 4 MG/ML INJ IV PRN (11:15)
[2016-04-13] MEDS ORDERED: DOPamine INJ PREMIX 500 ML IV SCH (11:15)
[2016-04-13] MEDS ORDERED: POTASSIUM CHLORIDE 20 MEQ CONTROLLED RELEASE TAB PO PRN ×2 (11:15)
[2016-04-13] MEDS ORDERED: METOPROLOL TARTRATE 5 MG/5 ML VIAL IV PUSH PRN (11:15)
[2016-04-13] MEDS ORDERED: ACETAMINOPHEN 1000 MG/100 ML VIAL IV SCH (12:00)
[2016-04-13] MEDS ORDERED: fentaNYL CITRATE 1000 MCG/20 ML VIAL ONE (12:29)
[2016-04-13] MEDS ORDERED: MIDAZOLAM HCL 5 MG/5 ML VIAL ONE ×2 (12:29→12:30)
[2016-04-13] MEDS ORDERED: RESP: ALBUTEROL 2.5 MG/IPRATROPIUM 0.5 MG NEB (PRN) NEB (12:30)
[2016-04-13] MEDS ORDERED: RESP: RACEPINEPHRINE 2.25% 0.5 ML NEB NEB PRN (12:30)
--- NOTE | 2016-04-13 13:57 | RADRPT ---
EXAM DATE/TIME: 04/13/2016 11:51 [facility] COMPARISON: CHEST SINGLE AP, April 08, 2016, 20:08. INDICATIONS : Status post coronary artery bypass graft surgery. MEDICAL HISTORY : None. SURGICAL HISTORY : None. ENCOUNTER: Initial ACUITY: 1 day PAIN SCORE: Non-responsive. LOCATION: Chest FINDINGS: ET tube, central venous catheter, mediastinal drain, and left chest drain are in good position. Med iastinal contents appear appropriate. The pulmonary vascularity is normal. CONCLUSION: 1. Support apparatus in good position. 2. Satisfactory post operative appearance to the chest. Eulogio Cortes MD FACR on April 13, 2016 at 12:43 Board Certified Radiologist. This report was verified electronically.
[2016-04-13] MEDS: KETOROLAC TROMETHAMINE 30 MG/ML (IVP) VIAL IV PUSH PRN ×2 (13:58→23:04)
[2016-04-13] MEDS: POTASSIUM CHLOR 20 MEQ PREMIX 100 ML IV PRN ×2 (14:51→22:11)
[2016-04-13] MEDS ORDERED: ESMOLOL HCL 100 MG/10 ML VIAL IV ONE (14:54)
[2016-04-13] MEDS ORDERED: AMINOCAPROIC ACID INJ 250 MG/ML 20 ML VIAL IV ONE (14:54)
[2016-04-13] MEDS ORDERED: PROPOFOL 1000 MG/100 ML BTL IV ONE (14:55)
[2016-04-13] MEDS ORDERED: CALCIUM CHLORIDE 10% SOLN 1 GRAM/10 ML SYR IV ONE (14:55)
[2016-04-13] MEDS ORDERED: HEPARIN SODIUM - SQ 10,000 UNITS/ML VIAL SQ ONE (14:56)
[2016-04-13] MEDS ORDERED: MAGNESIUM SULFATE 1000 MG/2 ML VIAL (PED) IV ONE (14:56)
[2016-04-13] MEDS ORDERED: PHENYLEPHRINE HCL 10 MG/ML VIAL IV ONE (14:57)
[2016-04-13] MEDS ORDERED: NITROGLYCERIN 50 MG/DEXTROSE 5% SOLN 250 ML BTL IV ONE (14:57)
[2016-04-13] MEDS ORDERED: VECURONIUM BROMIDE 10 MG VIAL IV ONE (14:58)
[2016-04-13] MEDS ORDERED: GLYCOPYRROLATE 0.2 MG/ML VIAL IV ONE (14:58)
[2016-04-13] MEDS ORDERED: DEXMEDETOMIDINE INJ 50 ML IV ONE (14:59)
[2016-04-13] MEDS ORDERED: ACETAMINOPHEN 1000 MG/100 ML VIAL IV ONE (15:00)
[2016-04-13] MEDS: CALCIUM CHLORIDE INJ 1 GM in SODIUM CHLORIDE 0.9% INJ 100 ML IV PRN ×2 (15:07→22:12)
[2016-04-13] MEDS: RESP: ALBUTEROL 2.5 MG/IPRATROPIUM 0.5 MG NEB (SCH) NEB ×2 (16:16→20:07)
--- NOTE | 2016-04-13 16:40 | RADRPT ---
EXAM DATE/TIME: 04/13/2016 16:01 [facility] COMPARISON: CHEST SINGLE AP, April 13, 2016, 11:51. INDICATIONS : Dyspnea. MEDICAL HISTORY : High Blood Pressure SURGICAL HISTORY : None. ENCOUNTER: Subsequent ACUITY: 1 day PAIN SCORE: Non-responsive. LOCATION: chest FINDINGS: Single AP view of the chest. Bilateral chest tubes. Endotracheal tube and nasogastric tube no longer seen. Lung volumes are low. Patchy opacity in the lung bases slightly increased likely representing a telectasis. No evidence of pleural effusion or pneumothorax. Left subclavian central venous catheter again seen. Air-filled distended stomach. CONCLUSION: Endotracheal tube and nasogastric tube no longer seen. Decreased lung volumes with bilateral basilar opacity likely representing atelectasis. Vasile Keller MD on April 13, 2016 at 16:34 Board Certified Radiologist. This report was verified electronically.
[2016-04-13] MEDS: ACETAMINOPHEN 1000 MG/100 ML VIAL IV SCH (16:58)
--- NOTE | 2016-04-13 17:53 | HHI.PR ---
Subjective Remarks The patient was seen following CABG. He was lethargic and on a facemask. Physical therapy had tried to get him to a chair earlier but the patient was too lethargic for that. He was able to respond to yes and no questions. Discussed with nursing. Objective Vitals Vital Signs Date Time Temp Pulse Resp B/P Pulse Ox O2 Delivery O2 Flow Rate FiO2 04/13/16 17:42 94 Venturi Mask 6.00 50 04/13/16 15:00 98.4 95 18 100/56 92 04/13/16 13:30 93 Venturi Mask 6 50 04/13/16 13:15 95 50 04/13/16 12:00 92 80 04/13/16 12:00 98.4 82 14 94/53 92 04/13/16 12:00 100 04/13/16 12:00 92 Mechanical Ventilator 100 04/13/16 11:35 95 100 04/13/16 11:35 98.4 80 12 108/65 89 115/62 04/13/16 04:00 77 11 159/54 04/13/16 00:00 98.8 72 19 189/102 04/12/16 20:00 98.7 77 20 160/87 I/O 04/12/16 04/12/16 04/12/16 04/13/16 04/13/16 04/13/16 07:00 15:00 23:00 07:00 15:00 23:00 Intake Total 400 ml 480 ml Output Total 800 ml 800 ml Balance -800 ml 400 ml 480 ml -800 ml Intake Oral 400 ml 480 ml IV Total 0 ml Output Urine Total 800 ml 800 ml # Voids 1 # Bowel Movements 1 Result Diagram: 04/13/16 0437 04/13/16 0437 Imaging Last Impressions Chest X-Ray 04/13/16 0000 Signed Impressions: Service Date/Time: Wednesday, April 13, 2016 16:01 - CONCLUSION: Endotracheal tube and nasogastric tube no longer seen. Decreased lung volumes with bilateral basilar opacity likely representing atelectasis. Vasile Keller MD Lower Extremity Ultrasound 04/11/16 0000 Signed Impressions: Service Date/Time: Monday, April 11, 2016 16:08 - CONCLUSION: 1. Venous mapping as above Ramon Shelton MD Carotid Artery Ultrasound 04/11/16 0000 Signed Impressions: Service Date/Time: Monday, April 11, 2016 16:46 - CONCLUSION: No evidence of hemodynamically significant lesion. Ramon Shelton MD Myocardial Perfusion Scan Nuc Med 04/09/16 0000 Signed Impressions: Service Date/Time: Saturday, April 09, 2016 12:39 - CONCLUSION: 1. Diminished perfusion is noted along the apical inferior wall with questionable redistribution on the rest images. 2. Dyskinesia of the inferior wall and global hypokinesis 3. Diminished ejection fraction at 36%%. RISK CATEGORY: Intermediate Anatoly Barbosa MD Objective Remarks GENERAL: Lethargic, on a facemask. HEENT: PERRLA, EOMI. No scleral icterus or conjunctival pallor. No lid lag or facial droop. CARDIOVASCULAR: Regular rate and rhythm. Grade 1 systolic murmur appreciated. RESPIRATORY: No obvious rhonchi or wheezing. Clear to auscultation. Breath sounds equal bilaterally. GASTROINTESTINAL: Abdomen soft, non-tender, nondistended. BS normal. MUSCULOSKELETAL: Chest with wound VAC in place. Extremities without clubbing, cyanosis, or edema. No obvious deformities. NEUROLOGICAL: Lethargic. No focal neurologic deficits. Moving both upper and lower extremities spontaneously. PSYCH: Flattened affect. Procedures CABG 2/3. Medications and IVs Current Medications Medications (Trade) Dose Ordered Sig/Sin Route Start Time Stop Time Status Last Admin (Glucagon Inj) 1 mg UNSCH PRN OTHER 04/08/16 22:30 (Dulcolax Supp) 10 mg DAILY PRN [place] 04/08/16 22:30 (Lipitor) 80 mg DAILY PO 04/09/16 09:00 04/12/16 08:47 (Catapres) 0.2 mg Q6H PRN PO 04/09/16 09:30 04/13/16 00:13 (NovoLIN N INJ) 20 units DAILY SQ 04/09/16 09:45 04/12/16 08:48 (Hydrodiuril) 25 mg DAILY PO 04/10/16 14:00 04/12/16 08:47 (Lopressor) 100 mg Q12HR PO 04/10/16 21:00 04/12/16 21:26 (Imdur) 30 mg DAILY@07 PO 04/11/16 07:00 04/13/16 06:10 (Atropine Inj) 0.5 mg UNSCH PRN IV 04/10/16 19:15 (Colace) 100 mg BID PO 04/11/16 11:00 04/12/16 21:26 (Senokot) 17.2 mg DAILY PO 04/11/16 11:00 04/11/16 11:23 (NS Flush) 2 ml BID IV FLUSH 04/13/16 21:00 IV Flush 2 ml 2 ml UNSCH PRN IV FLUSH 04/13/16 11:15 Dexmedetomidine HCl 50 ml @ 0 mls/hr TITRATE IV 04/13/16 11:15 Nitroglycerin/ Dextrose 250 ml @ 0 mls/hr TITRATE IV 04/13/16 11:15 Dobutamine HCl/ Dextrose 250 ml @ 18.75 mls/ hr [id number] IV 04/13/16 11:04 Dopamine HCl/ Dextrose 500 ml @ 0 mls/hr TITRATE IV 04/13/16 11:15 Epinephrine HCl 4 mg/Dextrose 250 ml @ 0 mls/hr TITRATE IV 04/13/16 11:15 Phenylephrine HCl 40 mg/Dextrose 500 ml @ 0 mls/hr TITRATE IV 04/13/16 11:15 (Cleviprex Inj) 50 ml @ 0 mls/hr TITRATE IV 04/13/16 11:15 Albumin Human 12.5 gm 12.5 gm UNSCH PRN IV 04/13/16 11:15 Lactated Ringer's 500 ml @ 500 mls/hr Q1H PRN IV 04/13/16 11:04 (Vancomycin Inj/ NS 250 ml Inj) 250 ml @ 250 mls/hr Q12H IV 04/13/16 20:00 04/14/16 20:59 (Aspirin Chew) 81 mg DAILY PO 04/14/16 09:00 (Plavix) 75 mg DAILY PO 04/14/16 09:00 (Protonix) 40 mg DAILY@06 PO 04/14/16 06:00 (Cordarone) 400 mg Q12HR PO 04/13/16 21:00 (Tylenol) 650 mg Q4H PRN PO 04/13/16 11:15 (Tylenol Supp) 650 mg Q4H PRN RECTAL 04/13/16 11:15 (Morphine Inj) 1 mg Q10M PRN IV 04/13/16 11:15 (Demerol Inj) 12.5 mg Q4H PRN IV 04/13/16 11:15 (Percocet 5-325 Mg) 1 tab Q3H PRN PO 04/13/16 11:15 (Percocet 5-325 Mg) 2 tab Q3H PRN PO 04/13/16 11:15 (Toradol Inj) 15 mg Q6H PRN IV PUSH 04/13/16 11:15 04/15/16 11:14 04/13/16 13:58 (fentaNYL INJ) 25 mcg Q1H PRN IV 04/13/16 11:15 (Zofran Inj) 4 mg Q6H PRN IV PUSH 04/13/16 11:15 (Apresoline Inj) 10 mg Q4H PRN IV 04/13/16 11:15 Metoprolol Tartrate 2.5 mg 2.5 mg Q1H PRN IV PUSH 04/13/16 11:15 Potassium Chloride 100 ml @ 50 mls/hr UNSCH PRN IV 04/13/16 11:15 04/13/16 14:51 Potassium Chloride 100 ml @ 50 mls/hr UNSCH PRN IV 04/13/16 11:15 Potassium Chloride 100 ml @ 50 mls/hr UNSCH PRN IV 04/13/16 11:15 Magnesium Sulfate 2 gm/Sodium Chloride 104 ml @ 100 mls/hr UNSCH PRN IV 04/13/16 11:15 Magnesium Sulfate 2 gm/Sodium Chloride 104 ml @ 50 mls/hr UNSCH PRN IV 04/13/16 11:15 (Calcium Chloride Inj/NS Inj) 110 ml @ 100 mls/hr UNSCH PRN IV 04/13/16 11:15 04/13/16 15:07 Calcium Chloride 0.5 gm 0.5 gm UNSCH PRN IV 04/13/16 11:15 (NovoLIN R (IV INFUSION)/NS Inj) 100 ml @ 0 mls/hr TITRATE IV 04/13/16 11:15 (D50w (Vial) Inj) 25 ml UNSCH PRN IV PUSH 04/13/16 11:15 (Ofirmev Inj) 1,000 mg Q6H IV 04/13/16 17:00 04/14/16 11:01 04/13/16 16:58 A/P Problem List: (1) Chest pain ICD Code: R07.9 Status: Acute (2) CAD (coronary artery disease) ICD Code: I25.10 Status: Acute (3) Hypertensive urgency ICD Code: I16.0 Status: Acute (4) DM (diabetes mellitus) ICD Code: E11.9 Status: Acute Assessment and Plan Chest pain/ CAD History of stents x 2. Exertional, associated w/ SOB, ongoing x1 wk, progressively worse. Troponin peaked at 0.05. EKG w/ no acute ischemia. CXR with no acute findings. LDL elevated. Cardiology consult appreciated. Stress test positive so pt went for cardiac cath 04/10 which revealed severe 3v CAD. Appreciate cardiothoracic surgery eval. status post CABG 04/13/16. - continue cardiac regimen. - pain control and oxygen as needed. - telemetry. - Further management per CT surgery. Acute respiratory failure The patient was extubated successfully and is currently on 50% Ventimask. Chest x-ray with atelectasis. Secondary to CABG. - Oxygen and nebs as needed. Consider BiPAP. - Further care per CT surgery. Icing Machine Operator consult as needed. - Repeat chest x-ray in morning. Hypertensive urgency BP on arrival 215/123, started on Nitro gtt in ER, BP stable. - d/c Nitro paste. - Metoprolol 100 mg bid, lisinopril 40 mg daily. Added HCTZ 25 mg daily. - clonidine as needed. - consider MRA of the renal arteries to rule out BRIAN. DM On metformin as an outpt. He says his sugars have been out of control at home. Improved at the hospital. A1c 10.3%. - Sliding scale w/ Accu-Cheks. - Hold Metformin. - continue NPH 20 units daily. - casting trucker consult. Hypokalemia Likely exacerbated by diuretic use. - replete and monitor. DVT Prophylaxis: Heparin. Discharge Planning Awaiting clinical improvement. Problem Qualifiers (1) Chest pain: Qualified Code: R07.9 - Chest pain, unspecified type Sincere Reyes DO Apr 13, 2016 17:53
[2016-04-13 19:13] LABS: BICARBONATE 21.7 MEQ/L (21.0-32.0); POTASSIUM 4.1 MEQ/L (3.5-5.1)
[2016-04-13] MEDS: oxyCODONE/ACETAMINOPHEN 5 MG/325 MG TAB PO PRN (21:43)
[2016-04-13] MEDS: AMIODARONE 200 MG TAB PO SCH (21:44)
[2016-04-13] MEDS: VANCOMYCIN INJ 1,000 MG in SODIUM CHLOR 0.9% 250 ML INJ 250 ML IV SCH (21:46)
[2016-04-14] VITALS (15 sets, daily range): BP systolic 96–174; BP diastolic 49–98; PULSE 91–118; RESP 21–28; TEMP 99.4–100.5; O2SAT 94–99
[2016-04-14] MEDS ORDERED: cloNIDine HCL 0.2 MG TAB ONE (00:18)
[2016-04-14] MEDS: cloNIDine HCL 0.2 MG TAB PO PRN ×2 (00:21→21:13)
[2016-04-14] MEDS: SODIUM CHLORIDE 0.9% FLUSH 5 ML FLUSH IV FLUSH SCH ×3 (00:23→20:23)
[2016-04-14] MEDS: ACETAMINOPHEN 1000 MG/100 ML VIAL IV SCH ×2 (00:24→06:41)
[2016-04-14] MEDS: RESP: ALBUTEROL 2.5 MG/IPRATROPIUM 0.5 MG NEB (SCH) NEB ×4 (04:31→21:14)
[2016-04-14 04:36] LABS: HEMATOCRIT 34.3 % (39.0-51.0); MEAN CELL VOLUME 80.9 FL (80.0-100.0); MEAN CORPUSCULAR HGB CONC 33.4 % (32.0-36.0); PLATELET COUNT 205 TH/MM3 (150-450); RED BLOOD COUNT 4.24 MIL/MM3 (4.50-5.90); RED CELL DISTRIBUTION WIDTH 14.4 % (11.6-17.2); REVIEW FLAG FINAL
[2016-04-14 04:59] LABS: BICARBONATE 23.2 MEQ/L (21.0-32.0); POTASSIUM 4.1 MEQ/L (3.5-5.1)
--- NOTE | 2016-04-14 05:52 | RADRPT ---
EXAM DATE/TIME: 04/14/2016 04:43 [facility] COMPARISON: CHEST SINGLE AP, April 13, 2016, 16:01. INDICATIONS : Shortness of breath, possible pulmonary disease. MEDICAL HISTORY : Hypertension. SURGICAL HISTORY : None. ENCOUNTER: Subsequent ACUITY: 2 days PAIN SCORE: Non-responsive. LOCATION: Bilateral chest FINDINGS: Underinflated AP view of the chest demonstrates cardiac silhouette size at the upper limits for bret l in this patient post median sternotomy. Mediastinal drain remains present and left subclavian centr al line also remains present. There is bibasilar airspace opacity. Left chest tube remains present. N o pneumothorax or pleural effusion is seen. CONCLUSION: Stable underinflation and bibasilar atelectasis versus consolidation. Rajesh Crapenter MD on April 14, 2016 at 5:49 Board Certified Radiologist. This report was verified electronically.
[2016-04-14] MEDS: MAGNESIUM SULFATE INJ 2 GM in SODIUM CHLORIDE 0.9% INJ 100 ML IV PRN (06:41)
[2016-04-14] MEDS: ISOSORBIDE MONONITRATE 30 MG TAB PO SCH (06:41)
[2016-04-14] MEDS: PANTOPRAZOLE SOD 40 MG DELAYED RELEASE TAB PO SCH (06:41)
[2016-04-14] MEDS: INSULIN ASPART SUPPLEMENTAL SCALE SQ SCH (07:00)
--- NOTE | 2016-04-14 08:07 | PD.CAR.PN ---
CVT Progress Note Subjective/Hospital Course: 04/12 45 male presented to ED with c/o of fatigue and chest pain off and on x one week , he admts to some noncompliance with meds due to change of insurance was found to be very hypertensive on admission SBP 215/120, he was started on NTG gtt , now off , underwent myocardial perfusion scan : EF 36 % dyskinesia of inferior wall, global hypokinesis Underwent Heart Cath: 3 vessel disease EF 30% 99% prox LAD, 90% mid distal LAD , 80% first diagonal, 99% RCA pt is now scheduled for Off pump CABG x 2 in am he has been pain free DSW Infection: 0.638% Renal Failure: 2.211% Reoperation: 4.132% / SURGICAL PROCEDURE 1. Urgent Off-pump Coronary Artery Bypass Grafting x 2 with left internal mammary artery (WANG) to left anterior descending (LAD), reverse saphenous vein graft to RPDA 2. Right Leg Endoscopic Vein [place] 3. Intraoperative Vein Mapping. 04/14 Doing well. Extubated but requiring supplemental oxygen support Wean O2 as tolerated Gentle diuresis OOB Keep in ICU for now Objective: Vital Signs Date Time Temp Pulse Resp B/P Pulse Ox O2 Delivery O2 Flow Rate FiO2 04/14/16 07:59 99 BiPAP 60 04/14/16 07:43 99 80 04/14/16 03:00 99 Bi-Pap 100 04/14/16 03:00 100.4 91 21 96/49 95 04/14/16 03:00 91 04/14/16 02:50 94 100 04/14/16 02:00 94 Bi-Pap 100 04/13/16 23:00 98.9 95 25 154/66 98 04/13/16 23:00 124 04/13/16 23:00 91 Partial Non-Rebreather 04/13/16 21:00 92 Non-Rebreather 04/13/16 20:08 93 Venturi Mask 50 04/13/16 20:00 91 Partial Non-Rebreather 04/13/16 19:00 91 Venturi Mask 50 04/13/16 19:00 90 04/13/16 19:00 98.9 91 18 102/56 91 04/13/16 17:42 94 Venturi Mask 6.00 50 04/13/16 15:00 98.4 95 18 100/56 92 04/13/16 13:30 93 Venturi Mask 6 50 04/13/16 13:15 95 50 04/13/16 12:00 92 80 04/13/16 12:00 98.4 82 14 94/53 92 04/13/16 12:00 100 04/13/16 12:00 92 Mechanical Ventilator 100 04/13/16 11:35 95 100 04/13/16 11:35 98.4 80 12 108/65 89 115/62 Labs: Laboratory Tests Test 04/14/16 04:11 White Blood Count 11.0 TH/MM3 (4.0-11.0) Red Blood Count 4.24 MIL/MM3 (4.50-5.90) Hemoglobin 11.4 GM/DL (13.0-17.0) Hematocrit 34.3 % (39.0-51.0) Mean Corpuscular Volume 80.9 FL (80.0-100.0) Mean Corpuscular Hemoglobin 27.0 PG (27.0-34.0) Mean Corpuscular Hemoglobin 33.4 % Concent (32.0-36.0) Red Cell Distribution Width 14.4 % (11.6-17.2) Platelet Count 205 TH/MM3 (150-450) Mean Platelet Volume 9.5 FL (7.0-11.0) Sodium Level 141 MEQ/L (136-145) Potassium Level 4.1 MEQ/L (3.5-5.1) Chloride Level 111 MEQ/L (98-107) Carbon Dioxide Level 23.2 MEQ/L (21.0-32.0) Anion Gap 7 MEQ/L (5-15) Blood Urea Nitrogen 13 MG/DL (7-18) Creatinine 1.04 MG/DL (0.60-1.30) Estimat Glomerular Filtration 93 ML/MIN (>89) Rate Random Glucose 115 MG/DL (74-106) Calcium Level 8.5 MG/DL (8.5-10.1) Magnesium Level 2.0 MG/DL (1.5-2.5) Result Diagram: 04/14/16 0411 04/14/16 041 (1) Unstable angina Plan: (2) CAD (coronary artery disease) Plan: pt is on statin , ASA. BB scheduled for OR in am (3) Chest pain (4) DM (diabetes mellitus) Problem Qualifiers (1) Chest pain: Qualified Code: R07.9 - Chest pain, unspecified type Lyndon Smiley MD Apr 14, 2016 08:07
[2016-04-14] MEDS: VANCOMYCIN INJ 1,000 MG in SODIUM CHLOR 0.9% 250 ML INJ 250 ML IV SCH ×2 (08:54→19:57)
[2016-04-14] MEDS: INSULIN HUMAN NPH 1,000 UNITS/10 ML VIAL SQ SCH (09:00)
[2016-04-14] MEDS ORDERED: METOPROLOL TARTRATE 25 MG TAB PO SCH (09:30)
[2016-04-14] MEDS ORDERED: FUROSEMIDE 40 MG/4 ML VIAL IV PUSH ONE (09:30)
--- NOTE | 2016-04-14 10:24 | HHI.PR ---
Subjective Remarks The patient was on a facemask. He was more alert this morning. He had no acute complaints. Nursing was at the bedside. Objective Vitals Vital Signs Date Time Temp Pulse Resp B/P Pulse Ox O2 Delivery O2 Flow Rate FiO2 04/14/16 10:05 98 Nasal Cannula 4.00 04/14/16 09:15 97 Nasal Cannula 4.00 04/14/16 07:59 99 BiPAP 60 04/14/16 07:43 99 80 04/14/16 03:00 99 Bi-Pap 100 04/14/16 03:00 100.4 91 21 96/49 95 04/14/16 03:00 91 04/14/16 02:50 94 100 04/14/16 02:00 94 Bi-Pap 100 04/13/16 23:00 98.9 95 25 154/66 98 04/13/16 23:00 124 04/13/16 23:00 91 Partial Non-Rebreather 04/13/16 21:00 92 Non-Rebreather 04/13/16 20:08 93 Venturi Mask 50 04/13/16 20:00 91 Partial Non-Rebreather 04/13/16 19:00 91 Venturi Mask 50 04/13/16 19:00 90 04/13/16 19:00 98.9 91 18 102/56 91 04/13/16 17:42 94 Venturi Mask 6.00 50 04/13/16 15:00 98.4 95 18 100/56 92 04/13/16 13:30 93 Venturi Mask 6 50 04/13/16 13:15 95 50 04/13/16 12:00 92 80 04/13/16 12:00 98.4 82 14 94/53 92 04/13/16 12:00 100 04/13/16 12:00 92 Mechanical Ventilator 100 04/13/16 11:35 95 100 04/13/16 11:35 98.4 80 12 108/65 89 115/62 I/O 04/13/16 04/13/16 04/13/16 04/14/16 04/14/16 04/14/16 07:00 15:00 23:00 07:00 15:00 23:00 Intake Total 2420 ml 1035 ml Output Total 800 ml 1645 ml 1175 ml Balance -800 ml 775 ml -140 ml Intake Oral 120 ml 240 ml IV Total 2300 ml 795 ml Output Urine Total 800 ml 1345 ml 1025 ml Chest Tube Drainage Total 300 ml 150 ml # Bowel Movements 0 0 Result Diagram: 04/14/16 04104/14/16410 Imaging Last Impressions Chest X-Ray 04/14/16 0500 Signed Impressions: Service Date/Time: Thursday, April 14, 2016 04:43 - CONCLUSION: Stable underinflation and bibasilar atelectasis versus consolidation. Rajesh Carpenter MD Lower Extremity Ultrasound 04/11/16 0000 Signed Impressions: Service Date/Time: Monday, April 11, 2016 16:08 - CONCLUSION: 1. Venous mapping as above Ramon Shelton MD Carotid Artery Ultrasound 04/11/16 0000 Signed Impressions: Service Date/Time: Monday, April 11, 2016 16:46 - CONCLUSION: No evidence of hemodynamically significant lesion. Ramon Shelton MD Myocardial Perfusion Scan Nuc Med 04/09/16 0000 Signed Impressions: Service Date/Time: Saturday, April 09, 2016 12:39 - CONCLUSION: 1. Diminished perfusion is noted along the apical inferior wall with questionable redistribution on the rest images. 2. Dyskinesia of the inferior wall and global hypokinesis 3. Diminished ejection fraction at 36%%. RISK CATEGORY: Intermediate Anatoly Barbosa MD Objective Remarks GENERAL: Lethargic, on a facemask. HEENT: PERRLA, EOMI. No scleral icterus or conjunctival pallor. No lid lag or facial droop. CARDIOVASCULAR: Regular rate and rhythm. Grade 1 systolic murmur appreciated. RESPIRATORY: No obvious rhonchi or wheezing. Clear to auscultation. Breath sounds equal bilaterally. GASTROINTESTINAL: Abdomen soft, non-tender, nondistended. BS normal. MUSCULOSKELETAL: Chest with wound VAC in place. Extremities without clubbing, cyanosis, or edema. No obvious deformities. NEUROLOGICAL: Lethargic. No focal neurologic deficits. Moving both upper and lower extremities spontaneously. PSYCH: Mood and affect appropriate. Procedures CABG 2/3. Medications and IVs Current Medications Medications (Trade) Dose Ordered Sig/Sin Route Start Time Stop Time Status Last Admin (Glucagon Inj) 1 mg UNSCH PRN OTHER 04/08/16 22:30 (Dulcolax Supp) 10 mg DAILY PRN [place] 04/08/16 22:30 (Lipitor) 80 mg DAILY PO 04/09/16 09:00 04/12/16 08:47 (Catapres) 0.2 mg Q6H PRN PO 04/09/16 09:30 04/14/16 00:21 (NovoLIN N INJ) 20 units DAILY SQ 04/09/16 09:45 04/12/16 08:48 (Hydrodiuril) 25 mg DAILY PO 04/10/16 14:00 04/12/16 08:47 (Imdur) 30 mg DAILY@07 PO 04/11/16 07:00 04/14/16 06:41 (Atropine Inj) 0.5 mg UNSCH PRN IV 04/10/16 19:15 (Colace) 100 mg BID PO 04/11/16 11:00 04/13/16 21:43 (Senokot) 17.2 mg DAILY PO 04/11/16 11:00 04/11/16 11:23 (NS Flush) 2 ml BID IV FLUSH 04/13/16 21:00 04/14/16 00:23 IV Flush 2 ml 2 ml UNSCH PRN IV FLUSH 04/13/16 11:15 (Nitroglycerin-Dextrose Inj) 250 ml @ 0 mls/hr TITRATE IV 04/13/16 11:15 Albumin Human 12.5 gm 12.5 gm UNSCH PRN IV 04/13/16 11:15 (Vancomycin Inj/ NS 250 ml Inj) 250 ml @ 250 mls/hr Q12H IV 04/13/16 20:00 04/14/16 20:59 04/14/16 08:54 (Aspirin Chew) 81 mg DAILY PO 04/14/16 09:00 (Plavix) 75 mg DAILY PO 04/14/16 09:00 (Protonix) 40 mg DAILY@06 PO 04/14/16 06:00 04/14/16 06:41 (Cordarone) 400 mg Q12HR PO 04/13/16 21:00 04/13/16 21:44 (Tylenol) 650 mg Q4H PRN PO 04/13/16 11:15 (Tylenol Supp) 650 mg Q4H PRN RECTAL 04/13/16 11:15 (Morphine Inj) 1 mg Q10M PRN IV 04/13/16 11:15 (Percocet 5-325 Mg) 1 tab Q3H PRN PO 04/13/16 11:15 (Percocet 5-325 Mg) 2 tab Q3H PRN PO 04/13/16 11:15 04/13/16 21:43 (Toradol Inj) 15 mg Q6H PRN IV PUSH 04/13/16 11:15 04/15/16 11:14 04/13/16 23:04 (Zofran Inj) 4 mg Q6H PRN IV PUSH 04/13/16 11:15 (Apresoline Inj) 10 mg Q4H PRN IV 04/13/16 11:15 04/13/16 23:04 Metoprolol Tartrate 2.5 mg 2.5 mg Q1H PRN IV PUSH 04/13/16 11:15 Potassium Chloride 100 ml @ 50 mls/hr UNSCH PRN IV 04/13/16 11:15 04/13/16 14:51 Potassium Chloride 100 ml @ 50 mls/hr UNSCH PRN IV 04/13/16 11:15 04/13/16 22:11 Potassium Chloride 100 ml @ 50 mls/hr UNSCH PRN IV 04/13/16 11:15 Magnesium Sulfate 2 gm/Sodium Chloride 104 ml @ 100 mls/hr UNSCH PRN IV 04/13/16 11:15 Magnesium Sulfate 2 gm/Sodium Chloride 104 ml @ 50 mls/hr UNSCH PRN IV 04/13/16 11:15 04/14/16 06:41 (Calcium Chloride Inj/NS Inj) 110 ml @ 100 mls/hr UNSCH PRN IV 04/13/16 11:15 04/13/16 22:12 Calcium Chloride 0.5 gm 0.5 gm UNSCH PRN IV 04/13/16 11:15 (NovoLIN R (IV INFUSION)/NS Inj) 100 ml @ 0 mls/hr TITRATE IV 04/13/16 11:15 (D50w (Vial) Inj) 25 ml UNSCH PRN IV PUSH 04/13/16 11:15 (Ofirmev Inj) 1,000 mg Q6H IV 04/13/16 17:00 04/14/16 11:01 04/14/16 06:41 (Lopressor) 50 mg Q12HR PO 04/14/16 21:00 A/P Problem List: (1) Chest pain ICD Code: R07.9 Status: Acute (2) CAD (coronary artery disease) ICD Code: I25.10 Status: Acute (3) Hypertensive urgency ICD Code: I16.0 Status: Acute (4) DM (diabetes mellitus) ICD Code: E11.9 Status: Acute Assessment and Plan Chest pain/ CAD History of stents x 2. Exertional, associated w/ SOB, ongoing x1 wk, progressively worse. Troponin peaked at 0.05. EKG w/ no acute ischemia. CXR with no acute findings. LDL elevated. Cardiology consult appreciated. Stress test positive so pt went for cardiac cath 04/10 which revealed severe 3v CAD. Appreciate cardiothoracic surgery eval. Status post CABG 04/13/16. - continue cardiac regimen. - pain control and oxygen as needed. - telemetry. - Further management per CT surgery. - amiodarone started. Acute respiratory failure The patient was extubated successfully. Chest x-ray with atelectasis. Secondary to CABG. Currently on facemask. Repeat chest x-ray 04/14 stable. - Oxygen and nebs as needed. Wean oxygen as tolerated. - Further care per CT surgery. Hypertensive urgency BP on arrival 215/123, started on Nitro gtt in ER. BP stable 04/14. - adjust medication regimen as needed. - clonidine as needed. - consider MRA of the renal arteries to rule out BRIAN. DM On metformin as an outpt. He says his sugars have been out of control at home. Improved at the hospital. A1c 10.3%. - Sliding scale w/ Accu-Cheks. - Hold Metformin. - continue NPH 20 units daily. - para educator consult. Hypokalemia Likely exacerbated by diuretic use. - replete and monitor. DVT Prophylaxis: Heparin. Discharge Planning Awaiting clinical improvement. Problem Qualifiers (1) Chest pain: Qualified Code: R07.9 - Chest pain, unspecified type Sincere Reyes DO Apr 14, 2016 10:24
[2016-04-14] MEDS: ASPIRIN 81 MG CHEW TAB PO SCH (10:30)
[2016-04-14] MEDS: CLOPIDOGREL 75 MG TAB PO SCH (10:31)
[2016-04-14] MEDS: SENNOSIDES 8.6 MG TAB PO SCH (10:31)
[2016-04-14] MEDS: DOCUSATE SODIUM 100 MG CAP PO SCH ×2 (10:31→20:22)
[2016-04-14] MEDS: ATORVASTATIN 80 MG TAB PO SCH (10:32)
[2016-04-14] MEDS: HYDROCHLOROTHIAZIDE 25 MG TAB PO SCH (10:33)
[2016-04-14] MEDS: AMIODARONE 200 MG TAB PO SCH ×2 (10:33→20:22)
[2016-04-14] MEDS: KETOROLAC TROMETHAMINE 30 MG/ML (IVP) VIAL IV PUSH PRN ×3 (10:35→22:00)
[2016-04-14] MEDS: [UNRECOGNIZED DRUG - REMARK] SQ SCH ×3 (14:37→22:00)
[2016-04-14] MEDS ORDERED: METOPROLOL TARTRATE 50 MG TAB ONE (17:44)
[2016-04-14] MEDS: METOPROLOL TARTRATE 50 MG TAB PO SCH (20:22)
[2016-04-14] MEDS ORDERED: METOPROLOL TARTRATE 50 MG TAB PO SCH (21:00)
[2016-04-14] MEDS: oxyCODONE/ACETAMINOPHEN 5 MG/325 MG TAB PO PRN (21:12)
[2016-04-15] VITALS (11 sets, daily range): BP systolic 125–150; BP diastolic 75–92; PULSE 98–108; RESP 20–28; TEMP 98.7–100.1; O2SAT 92–96
[2016-04-15] MEDS: [UNRECOGNIZED DRUG - REMARK] SQ SCH ×2 (02:56→06:31)
[2016-04-15] MEDS: RESP: ALBUTEROL 2.5 MG/IPRATROPIUM 0.5 MG NEB (SCH) NEB (03:33)
[2016-04-15 06:10] LABS: HEMATOCRIT 34.2 % (39.0-51.0); MEAN CELL VOLUME 80.4 FL (80.0-100.0); MEAN CORPUSCULAR HEMOGLOBIN 27.3 PG (27.0-34.0); PLATELET COUNT 178 TH/MM3 (150-450); RED BLOOD COUNT 4.25 MIL/MM3 (4.50-5.90); RED CELL DISTRIBUTION WIDTH 14.8 % (11.6-17.2); REVIEW FLAG FINAL; WHITE BLOOD COUNT 8.3 TH/MM3 (4.0-11.0)
[2016-04-15 06:13] LABS: BICARBONATE 28.8 MEQ/L (21.0-32.0); POTASSIUM 3.2 MEQ/L (3.5-5.1)
[2016-04-15] MEDS: METOPROLOL TARTRATE 50 MG TAB PO SCH ×3 (06:30→22:08)
[2016-04-15] MEDS: PANTOPRAZOLE SOD 40 MG DELAYED RELEASE TAB PO SCH (06:30)
[2016-04-15] MEDS: ISOSORBIDE MONONITRATE 30 MG TAB PO SCH (06:30)
[2016-04-15] MEDS: POTASSIUM CHLOR 20 MEQ PREMIX 100 ML IV PRN ×4 (07:26→12:26)
[2016-04-15] MEDS: oxyCODONE/ACETAMINOPHEN 5 MG/325 MG TAB PO PRN ×3 (07:31→18:16)
[2016-04-15] MEDS: KETOROLAC TROMETHAMINE 30 MG/ML (IVP) VIAL IV PUSH PRN (07:53)
[2016-04-15] MEDS: INSULIN HUMAN NPH 1,000 UNITS/10 ML VIAL SQ SCH (07:58)
[2016-04-15] MEDS: SENNOSIDES 8.6 MG TAB PO SCH ×3 (07:59→22:08)
--- NOTE | 2016-04-15 08:10 | PD.CAR.PN ---
CVT Progress Note Subjective/Hospital Course: 04/12 45 male presented to ED with c/o of fatigue and chest pain off and on x one week , he admts to some noncompliance with meds due to change of insurance was found to be very hypertensive on admission SBP 215/120, he was started on NTG gtt , now off , underwent myocardial perfusion scan : EF 36 % dyskinesia of inferior wall, global hypokinesis Underwent Heart Cath: 3 vessel disease EF 30% 99% prox LAD, 90% mid distal LAD , 80% first diagonal, 99% RCA pt is now scheduled for Off pump CABG x 2 in am he has been pain free DSW Infection: 0.638% Renal Failure: 2.211% Reoperation: 4.132% / SURGICAL PROCEDURE 1. Urgent Off-pump Coronary Artery Bypass Grafting x 2 with left internal mammary artery (WANG) to left anterior descending (LAD), reverse saphenous vein graft to RPDA 2. Right Leg Endoscopic Vein [place] 3. Intraoperative Vein Mapping. 04/14 Doing well. Extubated but requiring supplemental oxygen support Wean O2 as tolerated Gentle diuresis OOB Keep in ICU for now 04/15 Weaning O2 as tolerated Sinus tachycardia. Continue Beta mu Maintain CT Probable transfer to [facility] later today if oxygen demands improved Replace K Objective: Vital Signs Date Time Temp Pulse Resp B/P Pulse Ox O2 Delivery O2 Flow Rate FiO2 04/15/16 07:15 95 Venturi Mask 60 04/15/16 07:00 105 04/15/16 03:08 96 Venturi Mask 60 04/15/16 03:08 99.1 99 28 147/92 96 04/15/16 00:30 95 Venturi Mask 60 04/15/16 00:30 99.7 106 28 138/87 95 04/14/16 23:00 114 04/14/16 22:00 118 04/14/16 21:14 96 Venturi Mask 7.00 40 04/14/16 21:00 105 04/14/16 20:00 100.5 108 28 174/98 94 04/14/16 20:00 108 04/14/16 20:00 94 Nasal Cannula 3.00 04/14/16 19:00 106 04/14/16 16:00 99.8 106 28 150/78 94 04/14/16 16:00 94 Nasal Cannula 3.00 04/14/16 12:00 99 Nasal Cannula 4.00 04/14/16 12:00 99.4 91 24 129/73 99 Arterial Line 04/14/16 11:35 26 04/14/16 10:05 98 Nasal Cannula 4.00 04/14/16 09:15 97 Nasal Cannula 4.00 Labs: Laboratory Tests Test 04/15/16 05:24 White Blood Count 8.3 TH/MM3 (4.0-11.0) Red Blood Count 4.25 MIL/MM3 (4.50-5.90) Hemoglobin 11.6 GM/DL (13.0-17.0) Hematocrit 34.2 % (39.0-51.0) Mean Corpuscular Volume 80.4 FL (80.0-100.0) Mean Corpuscular Hemoglobin 27.3 PG (27.0-34.0) Mean Corpuscular Hemoglobin 34.0 % Concent (32.0-36.0) Red Cell Distribution Width 14.8 % (11.6-17.2) Platelet Count 178 TH/MM3 (150-450) Mean Platelet Volume 9.5 FL (7.0-11.0) Sodium Level 139 MEQ/L (136-145) Potassium Level 3.2 MEQ/L (3.5-5.1) Chloride Level 103 MEQ/L (98-107) Carbon Dioxide Level 28.8 MEQ/L (21.0-32.0) Anion Gap 7 MEQ/L (5-15) Blood Urea Nitrogen 11 MG/DL (7-18) Creatinine 0.92 MG/DL (0.60-1.30) Estimat Glomerular Filtration 107 ML/MIN Rate (>89) Random Glucose 134 MG/DL (74-106) Calcium Level 8.1 MG/DL (8.5-10.1) Magnesium Level 2.0 MG/DL (1.5-2.5) Result Diagram: 04/15/1652304/15/16523 (1) Unstable angina Plan: (2) CAD (coronary artery disease) Plan: pt is on statin , ASA. BB scheduled for OR in am (3) Chest pain (4) DM (diabetes mellitus) Problem Qualifiers (1) Chest pain: Qualified Code: R07.9 - Chest pain, unspecified type Lyndon Smiley MD Apr 15, 2016 08:10
[2016-04-15] MEDS: DOCUSATE SODIUM 100 MG CAP PO SCH ×2 (08:14→22:08)
[2016-04-15] MEDS: ATORVASTATIN 80 MG TAB PO SCH (08:14)
[2016-04-15] MEDS: AMIODARONE 200 MG TAB PO SCH ×2 (08:14→22:08)
[2016-04-15] MEDS: ASPIRIN 81 MG CHEW TAB PO SCH (08:14)
[2016-04-15] MEDS: SODIUM CHLORIDE 0.9% FLUSH 5 ML FLUSH IV FLUSH SCH ×2 (08:14→21:00)
[2016-04-15] MEDS: HYDROCHLOROTHIAZIDE 25 MG TAB PO SCH (08:14)
[2016-04-15] MEDS: CLOPIDOGREL 75 MG TAB PO SCH ×2 (08:15→10:37)
[2016-04-15] MEDS: MAGNESIUM SULFATE INJ 2 GM in SODIUM CHLORIDE 0.9% INJ 100 ML IV PRN (08:25)
[2016-04-15] MEDS ORDERED: DEXTROSE 50% IN WATER 50 ML VIAL(D50) IV PRN (09:00)
[2016-04-15] MEDS ORDERED: SOD PHOSPHATE/SOD BIPHOSPHATE (ADULT) ENEMA 133ML RECTAL PRN (09:00)
[2016-04-15] MEDS ORDERED: GLUCAGON 1 MG/ML VIAL OTHER PRN (09:00)
[2016-04-15] MEDS ORDERED: BISACODYL 10 MG SUPP RECTAL PRN (09:00)
[2016-04-15] MEDS: MAGNESIUM HYDROXIDE SUSP 30 ML CUP PO SCH (10:37)
[2016-04-15] MEDS: MULTIVITAMINS/MINERALS THERAPEUTIC TAB PO SCH (10:38)
[2016-04-15] MEDS: INSULIN ASPART SUPPLEMENTAL SCALE SQ SCH ×4 (10:38→22:00)
--- NOTE | 2016-04-15 13:40 | HHI.PR ---
Subjective Remarks The patient was sitting up in a chair. He said he felt a lot better. He worked with physical therapy. He said he has been sleeping well. He has not had a bowel movement yet. Pain is a 4 or 5 out of 10 in severity. Discussed with nursing. Objective Vitals Vital Signs Date Time Temp Pulse Resp B/P Pulse Ox O2 Delivery O2 Flow Rate FiO2 04/15/16 11:51 96 Nasal Cannula 2.00 04/15/16 11:51 99.9 99 28 125/79 96 04/15/16 11:00 99 04/15/16 08:31 20 04/15/16 08:31 20 04/15/16 08:30 96 Nasal Cannula 2.00 04/15/16 08:00 100.1 98 28 142/90 96 04/15/16 08:00 99 Nasal Cannula 4.00 04/15/16 07:15 95 Venturi Mask 60 04/15/16 07:00 105 04/15/16 03:08 96 Venturi Mask 60 04/15/16 03:08 99.1 99 28 147/92 96 04/15/16 00:30 95 Venturi Mask 60 04/15/16 00:30 99.7 106 28 138/87 95 04/14/16 23:00 114 04/14/16 22:00 118 04/14/16 21:14 96 Venturi Mask 7.00 40 04/14/16 21:00 105 04/14/16 20:00 100.5 108 28 174/98 94 04/14/16 20:00 108 04/14/16 20:00 94 Nasal Cannula 3.00 04/14/16 19:00 106 04/14/16 16:00 99.8 106 28 150/78 94 04/14/16 16:00 94 Nasal Cannula 3.00 I/O 04/14/16 04/14/16 04/14/16 04/15/16 04/15/16 04/15/16 07:00 15:00 23:00 07:00 15:00 23:00 Intake Total 1035 ml 1226 ml 420 ml Output Total 1175 ml 2025 ml 795 ml Balance -140 ml -799 ml -375 ml Intake Oral 240 ml 960 ml 420 ml IV Total 795 ml 266 ml 0 ml Output Urine Total 1025 ml 1945 ml 775 ml Chest Tube Drainage Total 150 ml 80 ml 20 ml # Bowel Movements 0 0 0 Result Diagram: 04/15/16 0524 04/15/16 0524 Imaging Last Impressions Chest X-Ray 04/14/16 0500 Signed Impressions: Service Date/Time: Thursday, April 14, 2016 04:43 - CONCLUSION: Stable underinflation and bibasilar atelectasis versus consolidation. Rajesh Carpenter MD Lower Extremity Ultrasound 04/11/16 0000 Signed Impressions: Service Date/Time: Monday, April 11, 2016 16:08 - CONCLUSION: 1. Venous mapping as above Ramon Shelton MD Carotid Artery Ultrasound 04/11/16 0000 Signed Impressions: Service Date/Time: Monday, April 11, 2016 16:46 - CONCLUSION: No evidence of hemodynamically significant lesion. Ramon Shelton MD Myocardial Perfusion Scan Nuc Med 04/09/16 0000 Signed Impressions: Service Date/Time: Saturday, April 09, 2016 12:39 - CONCLUSION: 1. Diminished perfusion is noted along the apical inferior wall with questionable redistribution on the rest images. 2. Dyskinesia of the inferior wall and global hypokinesis 3. Diminished ejection fraction at 36%%. RISK CATEGORY: Intermediate Anatoly Barbosa MD Objective Remarks GENERAL: Sitting in chair, no apparent distress. HEENT: PERRLA, EOMI. No scleral icterus or conjunctival pallor. No lid lag or facial droop. CARDIOVASCULAR: Tachycardic. Grade 1 systolic murmur appreciated. RESPIRATORY: No obvious rhonchi or wheezing. Clear to auscultation. Breath sounds equal bilaterally. GASTROINTESTINAL: Abdomen soft, non-tender, nondistended. BS normal. MUSCULOSKELETAL: Chest with wound VAC in place. Extremities without clubbing, cyanosis, or edema. No obvious deformities. NEUROLOGICAL: Alert and oriented. No focal neurologic deficits. Moving both upper and lower extremities spontaneously. PSYCH: Mood and affect appropriate. Procedures CABG 2/3. Medications and IVs Current Medications Medications (Trade) Dose Ordered Sig/Sin Route Start Time Stop Time Status Last Admin (Dulcolax Supp) 10 mg DAILY PRN OR 04/08/16 22:30 (Lipitor) 80 mg DAILY PO 04/09/16 09:00 04/15/16 08:14 (Catapres) 0.2 mg Q6H PRN PO 04/09/16 09:30 04/14/16 21:13 (NovoLIN N INJ) 20 units DAILY SQ 04/09/16 09:45 04/15/16 07:58 (Hydrodiuril) 25 mg DAILY PO 04/10/16 14:00 04/15/16 08:14 (Imdur) 30 mg DAILY@07 PO 04/11/16 07:00 04/15/16 06:30 (Atropine Inj) 0.5 mg UNSCH PRN IV 04/10/16 19:15 (NS Flush) 2 ml BID IV FLUSH 04/13/16 21:00 04/15/16 08:14 IV Flush 2 ml 2 ml UNSCH PRN IV FLUSH 04/13/16 11:15 (Nitroglycerin-Dextrose Inj) 250 ml @ 0 mls/hr TITRATE IV 04/13/16 11:15 (Albumin 5% Inj) 12.5 gm UNSCH PRN IV 04/13/16 11:15 (Aspirin Chew) 81 mg DAILY PO 04/14/16 09:00 04/15/16 08:14 (Protonix) 40 mg DAILY@06 PO 04/14/16 06:00 04/15/16 06:30 (Cordarone) 400 mg Q12HR PO 04/13/16 21:00 04/15/16 08:14 (Tylenol) 650 mg Q4H PRN PO 04/13/16 11:15 04/14/16 19:56 (Tylenol Supp) 650 mg Q4H PRN RECTAL 04/13/16 11:15 (Morphine Inj) 1 mg Q10M PRN IV 04/13/16 11:15 (Percocet 5-325 Mg) 1 tab Q3H PRN PO 04/13/16 11:15 (Percocet 5-325 Mg) 2 tab Q3H PRN PO 04/13/16 11:15 04/15/16 07:31 (Zofran Inj) 4 mg Q6H PRN IV PUSH 04/13/16 11:15 (Apresoline Inj) 10 mg Q4H PRN IV 04/13/16 11:15 04/13/16 23:04 Metoprolol Tartrate 2.5 mg 2.5 mg Q1H PRN IV PUSH 04/13/16 11:15 04/15/16 00:12 Potassium Chloride 100 ml @ 50 mls/hr UNSCH PRN IV 04/13/16 11:15 04/13/16 14:51 Potassium Chloride 100 ml @ 50 mls/hr UNSCH PRN IV 04/13/16 11:15 04/13/16 22:11 Potassium Chloride 100 ml @ 50 mls/hr UNSCH PRN IV 04/13/16 11:15 04/15/16 12:26 Magnesium Sulfate 2 gm/Sodium Chloride 104 ml @ 100 mls/hr UNSCH PRN IV 04/13/16 11:15 Magnesium Sulfate 2 gm/Sodium Chloride 104 ml @ 50 mls/hr UNSCH PRN IV 04/13/16 11:15 04/15/16 08:25 (Calcium Chloride Inj/NS Inj) 110 ml @ 100 mls/hr UNSCH PRN IV 04/13/16 11:15 04/13/16 22:12 (Calcium Chloride Inj) 0.5 gm UNSCH PRN IV 04/13/16 11:15 (Lopressor) 50 mg Q8HR PO 04/14/16 22:00 04/15/16 06:30 (Colace) 100 mg BID PO 04/15/16 21:00 (Plavix) 75 mg DAILY PO 04/15/16 09:00 04/15/16 10:37 (Theragran M Tab) 1 tab DAILY PO 04/15/16 09:00 04/15/16 10:38 (Milk Of Magnesia Liq) 30 ml DAILY PO 04/15/16 09:00 04/15/16 10:37 (Miralax) 17 gm DAILY PO 04/16/16 09:00 (Senokot) 8.6 mg HS PO 04/15/16 21:00 (Fleets Enema (Adult)) 133 ml UNSCH PRN RECTAL 04/15/16 09:00 (NovoLOG SUPPLEMENTAL SCALE) 1 02,06,10,14,18,22 SQ 04/15/16 10:00 04/15/16 10:38 (D50w (Vial) Inj) 25 ml UNSCH PRN IV 04/15/16 09:00 (Glucagon Inj) 1 mg UNSCH PRN OTHER 04/15/16 09:00 A/P Problem List: (1) Chest pain ICD Code: R07.9 Status: Acute (2) CAD (coronary artery disease) ICD Code: I25.10 Status: Acute (3) Hypertensive urgency ICD Code: I16.0 Status: Acute (4) DM (diabetes mellitus) ICD Code: E11.9 Status: Acute Assessment and Plan Chest pain/ CAD History of stents x 2. Exertional, associated w/ SOB, ongoing x1 wk, progressively worse. Troponin peaked at 0.05. EKG w/ no acute ischemia. CXR with no acute findings. LDL elevated. Cardiology consult appreciated. Stress test positive so pt went for cardiac cath 04/10 which revealed severe 3v CAD. Appreciate cardiothoracic surgery eval. Status post CABG 04/13/16. - continue cardiac regimen. - pain control and oxygen as needed. - telemetry. - Further management per CT surgery. - amiodarone started. Acute respiratory failure The patient was extubated successfully. Chest x-ray with atelectasis. Secondary to CABG. Repeat chest x-ray 04/14 stable. Satting well on nasal cannula. - Oxygen and nebs as needed. Wean oxygen as tolerated. - Encourage ambulation. - Incentive spirometry. - nebs as needed. Hypertensive urgency BP on arrival 215/123, started on Nitro gtt in ER. BP stable 2/. - adjust medication regimen as needed. - clonidine as needed. - consider MRA of the renal arteries to rule out BRIAN. DM On metformin as an outpt. He says his sugars have been out of control at home. Improved at the hospital. A1c 10.3%. Relatively well controlled 2/. - Sliding scale w/ Accu-Cheks. - Hold Metformin. - continue NPH 20 units daily. - plasterer apprentice consult. Hypokalemia Likely exacerbated by diuretic use. - replete and monitor. DVT Prophylaxis: Heparin. Discharge Planning Transfer to step down unit per CTS. Problem Qualifiers (1) Chest pain: Qualified Code: R07.9 - Chest pain, unspecified type Sincere Reyes DO Apr 15, 2016 13:40
[2016-04-15] MEDS ORDERED: LACTULOSE SYRUP 20 GM/30 ML CUP PO ONE (13:45)
[2016-04-15] MEDS ORDERED: RESP: ALBUTEROL 2.5 MG/IPRATROPIUM 0.5 MG NEB (SCH) NEB (14:00)
--- NOTE | 2016-04-15 14:00 | EKG ---
Date Performed: 04/14/2016 Time Performed: 05:26:08 PTAGE: 45 years EKG: CONSIDER ACUTE ST ELEVATION [place] Sinus rhythm Inferior infarct - age undetermined Lateral ST elevation, CONSIDER ACUTE INFARCT Anterior T wave sana nges are nonspecific Low QRS voltages in precordial leads Since previous tracing, no significant gutierrez ge noted Abnormal ECG PREVIOUS TRACING : 04/08/2016 20.02 DOCTOR: Virgie Thornton Interpretating Date/Time 04/15/2016 13:59:01
[2016-04-16] VITALS (16 sets, daily range): BP systolic 125–165; BP diastolic 77–97; PULSE 73–104; RESP 18; TEMP 97.9–98.9; O2SAT 94–98
[2016-04-16 05:22] LABS: BICARBONATE 27.2 MEQ/L (21.0-32.0)
[2016-04-16] MEDS: METOPROLOL TARTRATE 50 MG TAB PO SCH (05:56)
[2016-04-16] MEDS: PANTOPRAZOLE SOD 40 MG DELAYED RELEASE TAB PO SCH (05:56)
[2016-04-16] MEDS: ISOSORBIDE MONONITRATE 30 MG TAB PO SCH (05:56)
[2016-04-16] MEDS: INSULIN ASPART SUPPLEMENTAL SCALE SQ SCH ×4 (06:00→21:00)
[2016-04-16] MEDS: oxyCODONE/ACETAMINOPHEN 5 MG/325 MG TAB PO PRN ×3 (06:06→16:16)
[2016-04-16] MEDS: POTASSIUM CHLOR 20 MEQ PREMIX 100 ML IV PRN ×2 (08:42→11:32)
[2016-04-16] MEDS: MAGNESIUM HYDROXIDE SUSP 30 ML CUP PO SCH (08:49)
[2016-04-16] MEDS: POLYETHYLENE GLYCOL 17 GM PKG PO SCH (08:49)
[2016-04-16] MEDS: ATORVASTATIN 80 MG TAB PO SCH (08:50)
[2016-04-16] MEDS: AMIODARONE 200 MG TAB PO SCH ×2 (08:50→21:00)
[2016-04-16] MEDS: MULTIVITAMINS/MINERALS THERAPEUTIC TAB PO SCH (08:50)
[2016-04-16] MEDS: ASPIRIN 81 MG CHEW TAB PO SCH (08:50)
[2016-04-16] MEDS: DOCUSATE SODIUM 100 MG CAP PO SCH ×2 (08:50→21:00)
[2016-04-16] MEDS: SODIUM CHLORIDE 0.9% FLUSH 5 ML FLUSH IV FLUSH SCH ×2 (08:50→21:00)
[2016-04-16] MEDS: CLOPIDOGREL 75 MG TAB PO SCH (08:50)
[2016-04-16] MEDS: HYDROCHLOROTHIAZIDE 25 MG TAB PO SCH (08:51)
[2016-04-16] MEDS ORDERED: METOPROLOL TARTRATE 50 MG TAB PO ONE (09:30)
[2016-04-16] MEDS ORDERED: POTASSIUM CHLORIDE 10 MEQ CONTROLLED RELEASE TAB PO ONE (09:30)
--- NOTE | 2016-04-16 09:54 | RSPPFT ---
DATE OF PROCEDURE: 04/12/16 COMMENTS: VOLUMES DYNAMIC: FVC and FEV1 mildly reduced. FLOWS: FEV1% and FEF 25-75 normal. IMPRESSION: Mild restrictive ventilatory defect.
[2016-04-16] MEDS: INSULIN HUMAN NPH 1,000 UNITS/10 ML VIAL SQ SCH (10:00)
--- NOTE | 2016-04-16 11:44 | PD.CAR.PN ---
CVT Progress Note CVT: POD #: 3 Subjective/Hospital Course: 04/12 45 male presented to ED with c/o of fatigue and chest pain off and on x one week , he admts to some noncompliance with meds due to change of insurance was found to be very hypertensive on admission SBP 215/120, he was started on NTG gtt , now off , underwent myocardial perfusion scan : EF 36 % dyskinesia of inferior wall, global hypokinesis Underwent Heart Cath: 3 vessel disease EF 30% 99% prox LAD, 90% mid distal LAD , 80% first diagonal, 99% RCA pt is now scheduled for Off pump CABG x 2 in am he has been pain free 2/3 SURGICAL PROCEDURE 1. Urgent Off-pump Coronary Artery Bypass Grafting x 2 with left internal mammary artery (WANG) to left anterior descending (LAD), reverse saphenous vein graft to RPDA 2. Right Leg Endoscopic Vein [place] 3. Intraoperative Vein Mapping. 04/14 Doing well. Extubated but requiring supplemental oxygen support Wean O2 as tolerated Gentle diuresis OOB Keep in ICU for now / Weaning O2 as tolerated Sinus tachycardia. Continue Beta mu Maintain CT Probable transfer to CPCU later today if oxygen demands improved Replace K 2/ chest tube dc without difficulty resume metformin , decrease NPH dose OOB, ambulate BB increased , add low dose hortensia EF 36% eval for dc tommorow replace K+ Objective: Vital Signs Date Time Temp Pulse Resp B/P Pulse Ox O2 Delivery O2 Flow Rate FiO2 04/16/16 07:51 96 21 04/16/16 07:00 91 04/16/16 07:00 96 Room Air 04/16/16 07:00 98.8 92 18 125/77 96 04/16/16 03:00 96 Nasal Cannula 2.00 04/16/16 03:00 98.4 102 18 147/97 98 04/16/16 03:00 100 04/15/16 23:00 95 Nasal Cannula 2.00 04/15/16 23:00 98.7 100 20 138/75 95 04/15/16 23:00 100 04/15/16 21:50 92 Nasal Cannula 2.00 04/15/16 19:00 98.9 108 20 150/79 96 04/15/16 19:00 108 04/15/16 19:00 96 Nasal Cannula 2.00 04/15/16 15:34 99.1 99 20 128/78 96 04/15/16 15:33 95 Venturi Mask 60 04/15/16 15:00 99 04/15/16 14:39 20 04/15/16 11:51 96 Nasal Cannula 2.00 04/15/16 11:51 99.9 99 22 125/79 96 Labs: Laboratory Tests Test 04/16/16 04/16/16 04:25 04:29 Magnesium Level 2.2 MG/DL (1.5-2.5) Sodium Level 139 MEQ/L (136-145) Potassium Level 3.0 MEQ/L (3.5-5.1) Chloride Level 102 MEQ/L (98-107) Carbon Dioxide Level 27.2 MEQ/L (21.0-32.0) Anion Gap 10 MEQ/L (5-15) Blood Urea Nitrogen 15 MG/DL (7-18) Creatinine 0.91 MG/DL (0.60-1.30) Estimat Glomerular Filtration 108 ML/MIN Rate (>89) Random Glucose 96 MG/DL (74-106) Calcium Level 8.0 MG/DL (8.5-10.1) Result Diagram: 04/15/16 0524 04/16/16 0429 Telemetry: NSR (1) Unstable angina Plan: (2) CAD (coronary artery disease) Plan: pt is on statin , ASA. BB, plavix (3) S/P CABG x 2 Plan: pt is on statin , ASA. increase BB, plavix EF 36% , add low dose hortensia in am chest tube dc without difficulty, f/u CXR pending eval for dc in am continue pulm toileting Home with C (4) Chest pain (5) DM (diabetes mellitus) Problem Qualifiers (1) Chest pain: Qualified Code: R07.9 - Chest pain, unspecified type Nancy Roman Apr 16, 2016 11:44
[2016-04-16] MEDS ORDERED: PILL SPLITTER OTHER PRN (11:45)
--- NOTE | 2016-04-16 11:47 | HHI.FF ---
Face to Face Verification Diagnosis: (1) CAD (coronary artery disease) (2) DM (diabetes mellitus) (3) Unstable angina (4) Hyperlipemia (5) Hypertension (6) S/P CABG x 2 Physical Therapy Order: Evaluate and Treat Home Health Nursing Order: Signs/symptoms of disease process Diabetic education Wound care and dressing changes Instructions: Heart and Vascular Surgery patients *Special attention to sternal dressing Mandatory frequency Assess and evaluation, 4 days in a row The next week 3X week 2 times a week for 4 weeks 1 time a week for 5 weeks Schedule Heart and Vascular patients for full 60 day certification period Initial visit Review Open Heart Surgery Discharge Instructions (Sternal precautions, Activity, Elastic hose, Incision care, Driving, Incentive spirometry, Smoking, Kreamer, Work and other) Need Betadine to paint incision Medication reconciliation Importance of follow up care/ check on appointments Make calendar record temperature daily When to call [facility] nurse, review instructions, phone list Incentive Spirometry, demonstration Visit 1- Begin discharge instruction for patient family and/ or caregiver using teach back method- Signs and symptoms of infection Disease characteristics Medicines and side effects Foods and nutrition/ appetite Infection control/ hand washing/ hygiene Visit 2- Continue teaching Discharge instructions- include additional information on smoking cessation , sternal dressing (sternal vac) Visit 3- Continue teaching- Cough and deep breathing, incision monitoring. Choose my plate Visit 4- Continue teaching- Discuss limitations Discuss how they are feeling Discuss progress toward goals Remaining visits- continue teaching and monitoring Incentive spirometry Q1 hr x 10, while awake, also use acapella device hourly whole awake Sternal Breast Bone Precautions: NO pushing or pulling, ( pt must use sternal pillow to support chest with all activities and with coughing ( takes up to 3 months breast bone to heal ) Daily incision care: ok to shower daily, no tub bath. Wash all incisions with liquid dial soap, clean wash cloth to each site, rinse and pat dry. Observe for any signs of infection, such as drainage which is dark yellow, brady, green or foul smelling. Immediately report to the surgeon any drainage from the chest incision, or legs, and for any abnormal drainage from the chest tube sites. Notify surgeon if any temp >101.5 degrees F. When specialty dressing removed/ or if you do not have one, continue to shower daily as above, then rinse and pat incision dry and paint with betadine daily x 5 days. Allow steri strips to fall off if you have any. Avoid lotions, creams, salves, oils, etc. for the first month F/U appointment: as per [place] instructions: PCP in 2 weeks, CV surgeon 2 weeks, Electrical And Radio Mock Up Mechanic 3-4 weeks For any questions regarding incisions/ dressing / meds / post op care or above Symptoms, Saturday 8am-5pm Heart & Vascular Surgery Office ( Dr. Smiley & Dr. Guevara), After Hours / Nights (5pm -8am) Weekends and Holidays Please call [facility] Cardiac Inter[facility] Care Unit (CIC) Charge Nurse I have seen patient Darleen Marie on 04/16/16. My clinical findings support the need for the requested home health care services because: Patient has SOB Deconditioned w/ increased weakness I certify that my clinical findings support that this patient is homebound because: Post-op weakness Nancy Roman Apr 16, 2016 11:47
[2016-04-16] MEDS: metFORMIN HCL 500 MG TAB PO SCH ×2 (12:14→17:42)
--- NOTE | 2016-04-16 14:11 | HHI.PR ---
Subjective Remarks no complaints chest tube removed today Objective Vitals Vital Signs Date Time Temp Pulse Resp B/P Pulse Ox O2 Delivery O2 Flow Rate FiO2 04/16/16 07:51 96 21 04/16/16 07:00 91 04/16/16 07:00 96 Room Air 04/16/16 07:00 98.8 92 18 125/77 96 04/16/16 03:00 96 Nasal Cannula 2.00 04/16/16 03:00 98.4 102 18 147/97 98 04/16/16 03:00 100 04/15/16 23:00 95 Nasal Cannula 2.00 04/15/16 23:00 98.7 100 20 138/75 95 04/15/16 23:00 100 04/15/16 21:50 92 Nasal Cannula 2.00 04/15/16 19:00 98.9 108 20 150/79 96 04/15/16 19:00 108 04/15/16 19:00 96 Nasal Cannula 2.00 04/15/16 15:34 99.1 99 20 128/78 96 04/15/16 15:33 95 Venturi Mask 60 04/15/16 15:00 99 04/15/16 14:39 20 I/O 04/15/16 04/15/16 04/15/16 04/16/16 04/16/16 04/16/16 07:00 15:00 23:00 07:00 15:00 23:00 Intake Total 420 ml 1480 ml 300 ml Output Total 795 ml 1240 ml 600 ml Balance -375 ml 240 ml -300 ml Intake Oral 420 ml 1080 ml 300 ml IV Total 0 ml 400 ml 0 ml Output Urine Total 775 ml 990 ml 500 ml Chest Tube Drainage Total 20 ml 250 ml 100 ml # Bowel Movements 0 0 1 Result Diagram: 04/15/16 0524 04/16/16 0429 Imaging Last Impressions Chest X-Ray 04/14/16 0500 Signed Impressions: Service Date/Time: Thursday, April 14, 2016 04:43 - CONCLUSION: Stable underinflation and bibasilar atelectasis versus consolidation. Rajesh Carpenter MD Lower Extremity Ultrasound 04/11/16 0000 Signed Impressions: Service Date/Time: Monday, April 11, 2016 16:08 - CONCLUSION: 1. Venous mapping as above Ramon Shelton MD Carotid Artery Ultrasound 2/1/17 0000 Signed Impressions: Service Date/Time: Monday, April 11, 2016 16:46 - CONCLUSION: No evidence of hemodynamically significant lesion. Ramon Shelton MD Myocardial Perfusion Scan Nuc Med 04/09/16 0000 Signed Impressions: Service Date/Time: Saturday, April 09, 2016 12:39 - CONCLUSION: 1. Diminished perfusion is noted along the apical inferior wall with questionable redistribution on the rest images. 2. Dyskinesia of the inferior wall and global hypokinesis 3. Diminished ejection fraction at 36%%. RISK CATEGORY: Intermediate Anatoly Barbosa MD Objective Remarks awake, alert oriented 3 anicteric lungs no rales or wheezes regular rhythm adomen soft, nontender extremities no edema neuro exam- unremarkable Procedures CABG 04/13. A/P Problem List: (1) Chest pain ICD Code: R07.9 Status: Acute (2) CAD (coronary artery disease) ICD Code: I25.10 Status: Acute (3) Hypertensive urgency ICD Code: I16.0 Status: Acute (4) DM (diabetes mellitus) ICD Code: E11.9 Status: Acute Assessment and Plan S/P CABG 04/13/2016 for CAD, 3VD History of stents x 2. - continue cardiac regimen. - chest tube removed today 04/16 - pain control and oxygen as needed. - telemetry. - Further management per CT surgery. - continue cardiac regimen , amiodarone Acute respiratory failure- improved- 02NC The patient was extubated successfully. Chest x-ray with atelectasis. Secondary to CABG. Repeat chest x-ray 04/14 stable. Satting well on nasal cannula. - Oxygen and nebs as needed. Wean oxygen as tolerated. - Encourage ambulation. - Incentive spirometry. - nebs as needed. Hypertensive urgency- improved - adjust medication regimen as needed. - clonidine as needed. JAYJAY added 2.5 mg daily - consider MRA of the renal arteries to rule out BRIAN. DM On metformin as an outpt. He says his sugars have been out of control at home. Improved at the hospital. A1c 10.3%. Relatively well controlled 04/15. - Sliding scale w/ Accu-Cheks. - Metformin 1 gm bid - continue NPH 20 units daily. - inspector ball points consult. Hypokalemia - replete and monitor. DVT Prophylaxis: Heparin. Discharge Planning CTS ff Problem Qualifiers (1) Chest pain: Qualified Code: R07.9 - Chest pain, unspecified type Edgar Harmon MD Apr 16, 2016 14:11 Edgar Harmon MD Apr 16, 2016 14:11
[2016-04-16] MEDS: SENNOSIDES 8.6 MG TAB PO SCH (21:00)
[2016-04-16] MEDS: METOPROLOL TARTRATE 100 MG TAB PO SCH (21:00)
[2016-04-17] VITALS (10 sets, daily range): BP systolic 124–158; BP diastolic 83–96; PULSE 70–109; RESP 16–20; TEMP 98.3–100.7; O2SAT 95–99
[2016-04-17] MEDS: oxyCODONE/ACETAMINOPHEN 5 MG/325 MG TAB PO PRN ×2 (00:07→06:32)
[2016-04-17 04:33] LABS: BICARBONATE 24.6 MEQ/L (21.0-32.0); POTASSIUM 3.8 MEQ/L (3.5-5.1)
--- NOTE | 2016-04-17 06:16 | RADRPT ---
EXAM DATE/TIME: 04/17/2016 05:43 [place] COMPARISON: CHEST SINGLE AP, April 14, 2016, 4:43. INDICATIONS : Shortness of breath, possible pulmonary disease. MEDICAL HISTORY : Hypertension. SURGICAL HISTORY : None. ENCOUNTER: Subsequent ACUITY: 2 days PAIN SCORE: Non-responsive. LOCATION: Bilateral chest FINDINGS: Cardiomegaly, basilar atelectasis and sternotomy wires are seen. Left-sided chest tube has been remov ed. No obvious pneumothorax. CONCLUSION: Mild basilar atelectasis. Bharathi Pickett MD on April 17, 2016 at 6:14 Board Certified Radiologist. This report was verified electronically.
[2016-04-17] MEDS: PANTOPRAZOLE SOD 40 MG DELAYED RELEASE TAB PO SCH (06:32)
[2016-04-17] MEDS: INSULIN ASPART SUPPLEMENTAL SCALE SQ SCH ×2 (06:50→11:00)
[2016-04-17] MEDS ORDERED: LISINOPRIL 5 MG TAB PO SCH (09:00)
[2016-04-17] MEDS ORDERED: POTASSIUM CHLORIDE 10 MEQ CONTROLLED RELEASE TAB PO SCH (09:00)
[2016-04-17] MEDS: MULTIVITAMINS/MINERALS THERAPEUTIC TAB PO SCH (09:03)
[2016-04-17] MEDS: CLOPIDOGREL 75 MG TAB PO SCH (09:03)
[2016-04-17] MEDS: MAGNESIUM HYDROXIDE SUSP 30 ML CUP PO SCH (09:03)
[2016-04-17] MEDS: DOCUSATE SODIUM 100 MG CAP PO SCH (09:03)
[2016-04-17] MEDS: metFORMIN HCL 500 MG TAB PO SCH (09:04)
[2016-04-17] MEDS: METOPROLOL TARTRATE 100 MG TAB PO SCH (09:06)
[2016-04-17] MEDS: SODIUM CHLORIDE 0.9% FLUSH 5 ML FLUSH IV FLUSH SCH (09:06)
[2016-04-17] MEDS: ASPIRIN 81 MG CHEW TAB PO SCH (09:06)
[2016-04-17] MEDS: POLYETHYLENE GLYCOL 17 GM PKG PO SCH (09:07)
[2016-04-17] MEDS: ATORVASTATIN 80 MG TAB PO SCH (09:07)
[2016-04-17] MEDS: AMIODARONE 200 MG TAB PO SCH (09:07)
[2016-04-17] MEDS ORDERED: POTASSIUM CHLORIDE 10 MEQ CONTROLLED RELEASE TAB PO ONE (09:15)
[2016-04-17] MEDS ORDERED: LISINOPRIL 5 MG TAB PO ONE (09:15)
[2016-04-17] MEDS: INSULIN HUMAN NPH 1,000 UNITS/10 ML VIAL SQ SCH (10:01)
[2016-04-17] MEDS: HYDROCHLOROTHIAZIDE 25 MG TAB PO SCH (10:01)
[2016-04-17] MEDS ORDERED: NOVOLOGP2 SQ (10:02)
[2016-04-17] MEDS ORDERED: GLUCKIT15 (10:02)
[2016-04-17] MEDS ORDERED: INSU1MIS15 (10:02)
[2016-04-17] MEDS ORDERED: GLUCTES12 (10:02)
[2016-04-17] MEDS ORDERED: LANCETS1 MI1 (10:02)
[2016-04-17] MEDS ORDERED: METO-338 PO (10:06)
[2016-04-17] MEDS ORDERED: PLAV75TA29 PO (10:06)
[2016-04-17] MEDS ORDERED: Aspirin Chew PO (10:06)
[2016-04-17] MEDS ORDERED: HYDR25TA5 PO (10:06)
[2016-04-17] MEDS ORDERED: POTA-243 PO (10:06)
[2016-04-17] MEDS ORDERED: LIPI80TA PO (10:06)
[2016-04-17] MEDS ORDERED: LISI-519 PO (10:06)
[2016-04-17] MEDS ORDERED: AMIO200T PO (10:06)
[2016-04-17] MEDS ORDERED: CLON.1 PO (10:06)
[2016-04-17] MEDS ORDERED: DOCU1CAP39 PO (10:06)
[2016-04-17] MEDS ORDERED: THERM PO (10:06)
--- NOTE | 2016-04-17 10:34 | HHI.DS ---
Discharge Summary Admission Date Apr 08, 2016 at 22:26 Discharge Date: Apr 17, 2016 Admitting Diagnosis Chest Pain, Unstable Angina, Hypertensive Urgency (1) Chest pain Diagnosis: Principal (2) CAD (coronary artery disease) Diagnosis: Principal (3) Hypertensive urgency Diagnosis: Principal (4) DM (diabetes mellitus) Diagnosis: Principal (5) S/P CABG x 2 Diagnosis: Secondary Procedures 2/3 . Urgent Off-pump Coronary Artery Bypass Grafting x 2 with left internal mammary artery (WANG) to left anterior descending (LAD), reverse saphenous vein graft to RPDA Brief History / 45 male presented to ED with c/o of fatigue and chest pain off and on x one week , he admts to some noncompliance with meds due to change of insurance was found to be very hypertensive on admission SBP 215/120, he was started on NTG gtt , now off , underwent myocardial perfusion scan : EF 36 % dyskinesia of inferior wall, global hypokinesis Underwent Heart Cath: 3 vessel disease EF 30% 99% prox LAD, 90% mid distal LAD , 80% first diagonal, 99% RCA pt is now scheduled for Off pump CABG x 2 in am he has been pain free 2/3 SURGICAL PROCEDURE 1. Urgent Off-pump Coronary Artery Bypass Grafting x 2 with left internal mammary artery (WANG) to left anterior descending (LAD), reverse saphenous vein graft to RPDA 2. Right Leg Endoscopic Vein [place] 3. Intraoperative Vein Mapping. CBC/BMP: 04/15/16 0524 04/17/16 0329 Significant Findings Laboratory Tests Test 04/15/16 04/16/16 04/17/16 05:24 04:29 03:29 Red Blood Count 4.25 MIL/MM3 (4.50-5.90) Hemoglobin 11.6 GM/DL (13.0-17.0) Hematocrit 34.2 % (39.0-51.0) Potassium Level 3.2 MEQ/L 3.0 MEQ/L (3.5-5.1) (3.5-5.1) Random Glucose 134 MG/DL 165 MG/DL (74-106) (74-106) Calcium Level 8.1 MG/DL 8.0 MG/DL (8.5-10.1) (8.5-10.1) Imaging Last Impressions Chest X-Ray 04/17/16 0600 Signed Impressions: Service Date/Time: Sunday, April 17, 2016 05:43 - CONCLUSION: Mild basilar atelectasis. Bharathi Pickett MD Lower Extremity Ultrasound 04/11/16 0000 Signed Impressions: Service Date/Time: Monday, April 11, 2016 16:08 - CONCLUSION: 1. Venous mapping as above Ramon Shelton MD Carotid Artery Ultrasound 04/11/16 0000 Signed Impressions: Service Date/Time: Monday, April 11, 2016 16:46 - CONCLUSION: No evidence of hemodynamically significant lesion. Ramon Shelton MD Myocardial Perfusion Scan Nuc Med 04/09/16 0000 Signed Impressions: Service Date/Time: Saturday, April 09, 2016 12:39 - CONCLUSION: 1. Diminished perfusion is noted along the apical inferior wall with questionable redistribution on the rest images. 2. Dyskinesia of the inferior wall and global hypokinesis 3. Diminished ejection fraction at 36%%. RISK CATEGORY: Intermediate Anatoly Barbosa MD PE at Discharge GENERAL: SKIN: Warm and dry./ incision intact and well approximated HEAD: Normocephalic. EYES: No scleral icterus. No injection or drainage. NECK: Supple, trachea midline. No JVD or lymphadenopathy. CARDIOVASCULAR: Regular rate and rhythm without murmurs, gallops, or rubs. RESPIRATORY: Breath sounds equal bilaterally. No accessory muscle use. GASTROINTESTINAL: Abdomen soft, non-tender, nondistended. MUSCULOSKELETAL: No cyanosis, or edema. BACK: Nontender without obvious deformity. No CVA tenderness. Hospital Course 2/3 SURGICAL PROCEDURE 1. Urgent Off-pump Coronary Artery Bypass Grafting x 2 with left internal mammary artery (WANG) to left anterior descending (LAD), reverse saphenous vein graft to RPDA 2. Right Leg Endoscopic Vein [place] 3. Intraoperative Vein Mapping. 2/4 Doing well. Extubated but requiring supplemental oxygen support Wean O2 as tolerated Gentle diuresis OOB Keep in ICU for now 2/5 Weaning O2 as tolerated Sinus tachycardia. Continue Beta mu Maintain CT Probable transfer to CPCU later today if oxygen demands improved Replace K 2/6 chest tube dc without difficulty resume metformin , decrease NPH dose OOB, ambulate BB increased , add low dose hortensia EF 36% eval for dc tommorow replace K+ 2/7 stable for dc prevena dressing removed from chest, doing well dc instructions given RX for BP / clonidine re-added Pt Condition on Discharge: Good Discharge Disposition: Disch w/ Home Health Serv Discharge Instructions DIET: Follow Instructions for: Diabetic Diet Activities you can perform: Full Weight Bearing, Shower Only-No Bath Activities to avoid: Strenuous Activity, Driving Additional Activity Instructio: Incentive spirometry Q1 hr x 10, while awake, also use acapella device hourly whole awake Sternal Breast Bone Precautions: NO pushing or pulling, ( pt must use sternal pillow to support chest with all activities and with coughing ( takes up to 3 months breast bone to heal ) Daily incision care: ok to shower daily, no tub bath. Wash all incisions with liquid dial soap, clean wash cloth to each site, rinse and pat dry. Observe for any signs of infection, such as drainage which is dark yellow, brady, green or foul smelling. Immediately report to the surgeon any drainage from the chest incision, or legs, and for any abnormal drainage from the chest tube sites. Notify surgeon if any temp >101.5 degrees F. When specialty dressing removed/ or if you do not have one, continue to shower daily as above, then rinse and pat incision dry and paint with betadine daily x 5 days. Allow steri strips to fall off if you have any. Avoid lotions, creams, salves, oils, etc. for the first month F/U appointment: as per [place] instructions: PCP in 2 weeks, CV surgeon 4 weeks, Field Service Engineer 3-4 weeks For any questions regarding incisions/ dressing / meds / post op care or above Symptoms, Saturday -Saturday 8am-5pm Heart & Vascular Surgery Office ( Dr. Smiley & Dr. Guevara), [phone] After Hours / Nights (5pm -8am) Weekends and Holidays Please call [facility] Cardiac Intermediate Care Unit (CIC) Charge Nurse Follow up Referrals: Cardiology - 4 Weeks with Jarrett No MD Internal Medicine PCP Follow-up - 2 Weeks with Rizwan Hooper MD Surgical - 2 Weeks with Lyndon Smiley MD New Orders: BASIC METABOLIC PROF - 2 Weeks New Medications: Blood Glucose Monitoring W/Device (Glucocom Blood Glucose Mo W/Device) 1 Kit Kit 1 KIT .ROUTE DIRECTED Blood Sugar Management #1 KIT Glucocom Test Strips (Glucocom Test Strips) 1 [place] 1 EA .ROUTE DIRECTED check blood sugar tid before meals Blood Sugar Management #1 BOX Insulin Aspart Inj (Novolog Inj) 1,000 Unit/10 Ml Vial 1-9 UNITS SQ TIDAC Max dose at bedtime:( )units; sugars less than 70,(0)units; sugars 150-199,(1) unit; sugars 200-249,(3) units; sugars 250-299,(5) units; sugars 300-349,(7) units; sugars greater than 349,(9) units Blood Sugar Management #10 Ref 1 ML Insulin Syringe/U-100/31G X 5/16" 1 ml (Insulin Syringe/U-100/31G X 5/16" 1 ml) 1 Mis Mis 1 EA .ROUTE DIRECTED check blood sugar tid before meals Blood Sugar Management #1 Ref 1 BOX Lancets (Lancets) 1 Mis Mis 1 EA .ROUTE DIRECTED check blood sugar tid before meals Blood Sugar Management #1 Ref 1 BOX Amiodarone (Amiodarone) 200 Mg Tab 200 MG PO Q12HR heart rhythm #28 Ref 0 TAB Atorvastatin (Lipitor) 80 Mg Tab 80 MG PO DAILY Cholesterol Management #30 Ref 2 TAB Clonidine (Catapres) 0.1 Mg Tab 0.1 MG PO BID Blood Pressure Management #60 Ref 2 TAB Clopidogrel (Plavix) 75 Mg Tab 75 MG PO DAILY Blood Clot Prevention #30 Ref 2 TAB Docusate Sodium (Dok) 100 Mg Cap 100 MG PO BID Constipation #60 CAP Hydrochlorothiazide (Hydrochlorothiazide) 25 Mg Tab 25 MG PO DAILY Blood Pressure Management #30 Ref 2 TAB Lisinopril (Lisinopril) 5 Mg Tab 10 MG PO DAILY Blood Pressure Management #30 Ref 2 TAB Metoprolol Tartrate (Lopressor) 100 Mg Tab 100 MG PO Q12HR Blood Pressure Management #60 Ref 2 TAB Multiple Vitamins W/ Minerals (Thera M Plus) 1 Tab 1 TAB PO DAILY multi vitamin #30 TAB Potassium Chloride ER (Klor-Con 10) 10 Meq Tab 10 MEQ PO DAILY take with HCTZ #30 Ref 2 TAB ([Aspirin Chew]) 81 MG CHEW 81 MG PO DAILY Blood Clot Prevention #100 Ref 2 TAB.CHEW Continued Medications: Metformin (Metformin) 1,000 Mg Tab 1000 MG PO BIDPC With meals Blood Sugar Management #60 Ref 0 TAB Discontinued Medications: Clonidine (Clonidine) 0.2 Mg Tab 0.2 MG PO BID Blood Pressure Management #60 Ref 0 TAB Nancy Roman Apr 17, 2016 10:34
[2016-04-17] MEDS ORDERED: cloNIDine HCL 0.1 MG TAB PO SCH (11:00)
--- NOTE | 2016-04-17 13:28 | HHI.PR ---
Subjective Remarks Patient reports that he is feeling well. No acute events overnight. He is cleared for discharge by CT surgery. Objective Vitals Vital Signs Date Time Temp Pulse Resp B/P Pulse Ox O2 Delivery O2 Flow Rate FiO2 04/17/16 10:36 83 04/17/16 09:00 83 04/17/16 08:00 78 04/17/16 08:00 72 04/17/16 07:00 98.5 92 18 139/85 99 04/17/16 07:00 70 04/17/16 07:00 98 Room Air 04/17/16 05:00 85 04/17/16 04:00 96 Room Air 04/17/16 04:00 98.4 85 16 153/92 96 04/17/16 04:00 85 04/17/16 01:00 96 04/17/16 00:00 96 Room Air 04/17/16 00:00 109 04/17/16 00:00 100.7 109 20 158/91 96 04/16/16 21:09 95 21 04/16/16 19:00 102 04/16/16 19:00 97.9 102 18 158/95 97 04/16/16 19:00 97 Room Air 04/16/16 18:00 96 04/16/16 17:00 90 04/16/16 16:00 97 04/16/16 15:00 97 Room Air 04/16/16 15:00 98.7 96 18 157/97 97 04/16/16 15:00 73 04/16/16 14:00 91 I/O 04/16/16 04/16/16 04/16/16 04/17/16 04/17/16 04/17/16 07:00 15:00 23:00 07:00 15:00 23:00 Intake Total 300 ml 1180 ml 480 ml Output Total 600 ml 800 ml Balance -300 ml 1180 ml -320 ml Intake Oral 300 ml 960 ml 480 ml IV Total 0 ml 220 ml 0 ml Output Urine Total 500 ml 800 ml Chest Tube Drainage Total 100 ml # Voids 4 # Bowel Movements 1 1 0 Result Diagram: 04/15/16 0524 04/17/16 0329 Imaging Last Impressions Chest X-Ray 04/17/16 0600 Signed Impressions: Service Date/Time: Sunday, April 17, 2016 05:43 - CONCLUSION: Mild basilar atelectasis. Bharathi Pickett MD Lower Extremity Ultrasound 04/11/16 0000 Signed Impressions: Service Date/Time: Monday, April 11, 2016 16:08 - CONCLUSION: 1. Venous mapping as above Ramon Shelton MD Carotid Artery Ultrasound 04/11/16 0000 Signed Impressions: Service Date/Time: Monday, April 11, 2016 16:46 - CONCLUSION: No evidence of hemodynamically significant lesion. Ramon Shelton MD Myocardial Perfusion Scan Nuc Med 04/09/16 0000 Signed Impressions: Service Date/Time: Saturday, April 09, 2016 12:39 - CONCLUSION: 1. Diminished perfusion is noted along the apical inferior wall with questionable redistribution on the rest images. 2. Dyskinesia of the inferior wall and global hypokinesis 3. Diminished ejection fraction at 36%%. RISK CATEGORY: Intermediate Anatoly Barbosa MD Objective Remarks GENERAL: Obese male in no apparent distress. CARDIOVASCULAR: Status post sternotomy. Normal rate and regular rhythm without murmurs, gallops, or rubs. RESPIRATORY: Good respiratory efforts. Breath sounds equal and clear to auscultation bilaterally. GASTROINTESTINAL: Abdomen soft, non-tender, non-distended. Normal active bowel sounds MUSCULOSKELETAL: Extremities without cyanosis, or edema. NEURO: Alert & Oriented x4 to person, place, time, situation. Moves all ext x4 PSYCH: Appropriate mood and affect. Procedures CABG 2/. A/P Problem List: (1) Chest pain ICD Code: R07.9 Status: Acute (2) CAD (coronary artery disease) ICD Code: I25.10 Status: Acute (3) Hypertensive urgency ICD Code: I16.0 Status: Acute (4) DM (diabetes mellitus) ICD Code: E11.9 Status: Acute (5) S/P CABG x 2 ICD Code: Z95.1 Status: Acute Assessment and Plan S/P CABG 04/13/2016 for CAD, 3VD History of stents x 2. - Further management per CT surgery. - continue cardiac with amiodarone, metoprolol, aspirin, Plavix per CT surgery. Acute respiratory failure- improved- 02NC The patient was extubated successfully. Chest x-ray with atelectasis. Secondary to CABG. Repeat chest x-ray 04/14 stable. Satting well on nasal cannula. - Oxygen and nebs as needed. Wean oxygen as tolerated. - Encourage ambulation. - Incentive spirometry. - nebs as needed. Hypertensive urgency- improved - Patient is discharged on clonidine, metoprolol, lisinopril DM On metformin as an outpt. Discharge with sliding scale insulin. Outpatient follow-up is advised. Hospitalist clear for discharge. Problem Qualifiers (1) Chest pain: Qualified Code: R07.9 - Chest pain, unspecified type Janae Bonilla MD Apr 17, 2016 13:28
== END 2016-04-17 15:15 | disposition home health service (06) | DRG 233 ==
LOC: NEPE 19:27 → NEDA 22:26 → NEDH 04-09 03:40 → HIMN 04-09 13:20 → HCPC 04-13 10:07 → HCVR 04-13 11:35 → HCPC 04-15 19:12 → UNDODISIN 04-17 15:15
PROVIDERS: ADMIT Family Medicine; ATTEND Family Medicine
PROC: 4A023N7 Measurement of Cardiac Sampling and Pressure, Left Heart, Percutaneous Approach (ICD-10-PCS; 2016-04-10)
PROC: B2111ZZ Fluoroscopy of Multiple Coronary Arteries using Low Osmolar Contrast (ICD-10-PCS; 2016-04-10)
PROC: 021009W Bypass Coronary Artery, One Artery from Aorta with Autologous Venous Tissue, Open Approach (ICD-10-PCS; 2016-04-13)
PROC: 06BP4ZZ Excision of Right Saphenous Vein, Percutaneous Endoscopic Approach (ICD-10-PCS; 2016-04-13)
PROC: 5A1935Z Respiratory Ventilation, Less than 24 Consecutive Hours (ICD-10-PCS; 2016-04-13)
PROC: 5A09357 Assistance with Respiratory Ventilation, Less than 24 Consecutive Hours, Continuous Positive Airway Pressure (ICD-10-PCS; 2016-04-13)
PROC: 02100Z9 Bypass Coronary Artery, One Artery from Left Internal Mammary, Open Approach (ICD-10-PCS; principal; 2016-04-13 07:05)
DX: I25.110 Atherosclerotic heart disease of native coronary artery with unstable angina pectoris (principal); J96.00 Acute respiratory failure, unspecified whether with hypoxia or hypercapnia; Z68.41 Body mass index [BMI] 40.0-44.9, adult; J98.11 Atelectasis; E66.9 Obesity, unspecified; Z95.5 Presence of coronary angioplasty implant and graft; E11.65 Type 2 diabetes mellitus with hyperglycemia; Z79.84 Long term (current) use of oral hypoglycemic drugs; I16.0 Hypertensive urgency; Z91.19 Patient's noncompliance with other medical treatment and regimen; E87.6 Hypokalemia; K59.00 Constipation, unspecified; E78.5 Hyperlipidemia, unspecified; Z88.0 Allergy status to penicillin; Z87.891 Personal history of nicotine dependence
CPT/HCPCS: 36430; 71010; 76937; 78452; 80048; 80053; 80061; 81001; 82550; 82552; 82948; 83036; 83735; 83880; 84443; 84484; 85014; 85025; 85027; 85610; 85730; 86850; 86900; 86901; 86920; 87641; 93005; 93017; 93454; 93880; 93970; 93998; 94002; 94010; 94150; 94640; 94667; 96360; 96361; A9502; C1768; C1769; C1893; C9248; C9399; J0131; J0360; J1644; J1815; J1885; J1940; J2250; J2370; J2440; J2720; J2785; J3010; J3370; J3475; J3480; J7040; J7050; J7120; P9016; Q9967

== ENCOUNTER 2017-06-25 14:16 | Observation (INO) | payer SELFPAY ==
[~2017-06-25] VITALS: Ht 170.2 cm; Wt 127.3 kg
[~2017-06-25 14:16] MED LIST changes: -1-ME1LIQ PO; +AMIO200T PO; +Aspirin Chew PO; -CLIN150 PO; +CLON.1 PO; -CLON0.2T PO; +DOCU1CAP39 PO; +GLUCKIT15; +GLUCTES12; -HYDR-3534 PO; +HYDR25TA5 PO; +INSU1MIS15; +KLOR10TA PO; +LANCETS1 MI1; +LIPI80TA PO; +LISI-519 PO; -METF-324 PO; +METF1000 PO; +METO-338 PO; +NOVOLOGP2 SQ; +PLAV75TA29 PO; +THERM PO
[2017-06-25 14:34] VITALS: BP 198/104; PULSE 85; RESP 18; TEMP 98.4; O2SAT 97
[2017-06-25 15:18] LABS: BASOPHIL # 0.1 TH/MM3 (0-0.2); BASOPHIL % 0.9 % (0.0-2.0); BILIRUBIN, URINE NEG (NEG); BLOOD, URINE NEG (NEG); CALCIUM OXALATE CRYSTALS,URINE OCC /hpf; EOSINOPHIL % 0.6 % (0.0-4.0); GLUCOSE,URINE 70 mg/dL (NEG); HEMATOCRIT 37.4 % (39.0-51.0); KETONE, URINE NEG (NEG); LYMPH % 28.2 % (9.0-44.0); LYMPHOCYTE # 1.8 TH/MM3 (1.0-4.8); MEAN CELL VOLUME 82.1 FL (80.0-100.0); MEAN CORPUSCULAR HEMOGLOBIN 28.6 PG (27.0-34.0); MEAN CORPUSCULAR HGB CONC 34.8 % (32.0-36.0); MEAN PLATELET VOLUME 9.3 FL (7.0-11.0); MONO % 5.6 % (0.0-8.0); MONOCYTE # 0.3 TH/MM3 (0-0.9); NEUT % 64.7 % (16.0-70.0); NITRITE,URINE NEG (NEG); PLATELET COUNT 217 TH/MM3 (150-450); RED BLOOD COUNT 4.56 MIL/MM3 (4.50-5.90); RED CELL DISTRIBUTION WIDTH 14.3 % (11.6-17.2); URINE COLOR YELLOW (YELLW/STRAW); URINE LEUKOCYTE ESTERASE NEG (NEG); WHITE BLOOD COUNT 6.2 TH/MM3 (4.0-11.0)
[2017-06-25] MEDS ORDERED: ASPIRIN 81 MG CHEW TAB PO ONE (15:30)
[2017-06-25] MEDS ORDERED: LABETALOL HCL 100 MG/20 ML VIAL IV PUSH ONE (15:30)
[2017-06-25 15:31] LABS: BICARBONATE 28.6 MEQ/L (21.0-32.0); BLOOD UREA NITROGEN 16 MG/DL (7-18); CALCIUM 8.9 MG/DL (8.5-10.1); CHLORIDE 106 MEQ/L (98-107); CREATININE 0.99 MG/DL (0.60-1.30); GLOMERULAR FILTRATION RATE 98 ML/MIN (>89); GLUCOSE,RANDOM 181 MG/DL (74-106); MAGNESIUM 2.3 MG/DL (1.5-2.5); SODIUM (NA) 142 MEQ/L (136-145)
[2017-06-25] MEDS ORDERED: METOPROLOL TARTRATE 5 MG/5 ML VIAL IV PUSH STA (15:33)
[2017-06-25 15:35] VITALS: BP_SYST 153; BP_SYST 181; BP_DIAS 78; BP_DIAS 95; PULSE 78; RESP 18; O2SAT 98
[2017-06-25 15:36] LABS: TROPONIN I LESS THAN 0.02 NG/ML (0.02-0.05)
--- NOTE | 2017-06-25 15:37 | PD ---
HPI Chief Complaint: Chest Pain Time Seen by Provider: 15:30 Travel History International Travel<30 days: No Contact w/Intl Traveler<30days: No Traveled to known affect area: No History of Present Illness HPI 46-year-old male with history of coronary disease, CABG, hypertension, diabetes , hyperlipidemia, presents by private vehicle for evaluation of chest tightness and dyspnea with exertion. 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 He reports tightness in his chest which is intermittent, worse with exertion, associated with dyspnea. Currently he is asymptomatic. He denies nausea vomiting, diaphoresis, abdominal pain, fevers or chills, recent illness. He denies any cough or congestion. Denies orthopnea , lower extremity edema. He currently does not have a primary care physician. 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 He has no other complaints at this time. PFSH Past Medical History Hx Anticoagulant Therapy: Yes (Plavix) Arthritis: No Asthma: No Autoimmune Disease: No Heart Rhythm Problems: No Cancer: No Cardiac Catheterization: Yes Cardiovascular Problems: Yes High Cholesterol: Yes Chemotherapy: No Chest Pain: Yes Congestive Heart Failure: No COPD: No Cerebrovascular Accident: No Coronary Artery Disease: Yes Diabetes: Yes Patient Takes Glucophage: Yes Diminished Hearing: No Endocrine: Yes Gastrointestinal Disorders: No GERD: No Genitourinary: No Hiatal Hernia: No Hypertension: Yes Immune Disorder: No Kidney Stones: No Medical other: Yes Musculoskeletal: No Neurologic: No Psychiatric: No Reproductive: No Respiratory: No Immunizations Current: No Migraines: No Radiation Therapy: No Renal Failure: No Seizures: No Sickle Cell Disease: No Sleep Apnea: No Thyroid Disease: No Ulcer: No Tetanus Vaccination: > 5 Years Past Surgical History Abdominal Surgery: No Arteriovenous Shunt: No Cardiac Surgery: Yes (STENTS X2 2006) Coronary Stent: Yes (X 2 IN 2009) Ear Surgery: No Endocrine Surgery: No Eye Surgery: No Genitourinary Surgery: No Gynecologic Surgery: No Insulin Pump: No Joint Replacement: No Oral Surgery: Yes Pacemaker: No Thoracic Surgery: No Other Surgery: Yes Social History Alcohol Use: No Tobacco Use: No (QUIT 25 YEARS AGO) Substance Use: No Allergies-Medications (Allergen,Severity, Reaction): Coded Allergies: penicillin G (Verified Allergy, Severe, ITCHING, 06/25/17) Reported Meds & Prescriptions Reported Meds & Active Scripts Active Klor-Con 10 (Potassium Chloride) 10 Meq Tab 10 Meq PO DAILY Thera M Plus (Multivitamins/Minerals Therapeutic) 1 Tab 1 Tab PO DAILY Lopressor (Metoprolol Tartrate) 100 Mg Tab 100 Mg PO Q12HR Plavix (Clopidogrel Bisulfate) 75 Mg Tab 75 Mg PO DAILY Catapres (Clonidine) 0.1 Mg Tab 0.1 Mg PO BID [Aspirin Chew] 81 MG Chew 81 Mg PO DAILY Reported Metformin (Metformin HCl) 1,000 Mg Tab 1,000 Mg PO BIDPC With meals Review of Systems Except as stated in HPI: all other systems reviewed are Neg Physical Exam Narrative GENERAL: Well-developed well-nourished male in no acute distress resting comfortably in hospital bed vital signs reviewed SKIN: Warm and dry. HEAD: Atraumatic. Normocephalic. EYES: Pupils equal and round. No scleral icterus. No injection or drainage. ENT: No nasal bleeding or discharge. Mucous membranes pink and moist. NECK: Trachea midline. No JVD. CARDIOVASCULAR: Regular rate and rhythm. No murmur appreciated. RESPIRATORY: No accessory muscle use. Clear to auscultation. Breath sounds equal bilaterally. GASTROINTESTINAL: Abdomen soft, non-tender, nondistended. Hepatic and splenic margins not palpable. MUSCULOSKELETAL: No obvious deformities. No clubbing. No cyanosis. No edema. NEUROLOGICAL: Awake and alert. No obvious cranial nerve deficits. Motor grossly within normal limits. Normal speech. PSYCHIATRIC: Appropriate mood and affect; insight and judgment normal. Data Data Last Documented VS Vital Signs Date Time Temp Pulse Resp B/P (MAP) Pulse Ox O2 Delivery O2 Flow Rate FiO2 06/25/17 15:35 18 98 Room Air 06/25/17 15:35 78 06/25/17 14:34 98.4 Orders Orders Electrocardiogram (06/25/17 14:36) Basic Metabolic Panel (Bmp) (06/25/17 14:36) Ckmb (Isoenzyme) Profile (06/25/17 14:36) Complete Blood Count With Diff (06/25/17 14:36) Magnesium (Mg) (06/25/17 14:36) Prothrombin Time / Inr (Pt) (06/25/17 14:36) Act Partial Throm Time (Ptt) (06/25/17 14:36) Troponin I (06/25/17 14:36) Chest, Pa & Lat (06/25/17 14:36) Urinalysis - C+S If Indicated (06/25/17 14:48) Ecg Monitoring (06/25/17 15:30) Bilateral Bp Monitoring (06/25/17 15:30) Iv Access Insert/Monitor (06/25/17 15:30) Oximetry (06/25/17 15:30) Aspirin Chew (Aspirin Chew) (06/25/17 15:30) Labetalol Inj (Trandate Inj) (06/25/17 15:30) Metoprolol Tartrate Inj (Lopressor Inj) (06/25/17 15:33) CKMB (06/25/17 14:47) CKMB% (06/25/17 14:47) Potassium Chloride (Kcl) (06/25/17 15:45) Admit Order (Ed Use Only) (06/25/17 16:09) Labs Laboratory Tests Test 06/25/17 14:47 White Blood Count 6.2 TH/MM3 Red Blood Count 4.56 MIL/MM3 Hemoglobin 13.0 GM/DL Hematocrit 37.4 % Mean Corpuscular Volume 82.1 FL Mean Corpuscular Hemoglobin 28.6 PG Mean Corpuscular Hemoglobin Concent 34.8 % Red Cell Distribution Width 14.3 % Platelet Count 217 TH/MM3 Mean Platelet Volume 9.3 FL Neutrophils (%) (Auto) 64.7 % Lymphocytes (%) (Auto) 28.2 % Monocytes (%) (Auto) 5.6 % Eosinophils (%) (Auto) 0.6 % Basophils (%) (Auto) 0.9 % Neutrophils # (Auto) 4.0 TH/MM3 Lymphocytes # (Auto) 1.8 TH/MM3 Monocytes # (Auto) 0.3 TH/MM3 Eosinophils # (Auto) 0.0 TH/MM3 Basophils # (Auto) 0.1 TH/MM3 CBC Comment DIFF FINAL Differential Comment Prothrombin Time 10.2 SEC Prothromb Time International Ratio 1.0 RATIO Activated Partial Thromboplast Time 26.6 SEC Urine Color YELLOW Urine Turbidity CLEAR Urine pH 6.0 Urine Specific [place] 1.018 Urine Protein TRACE mg/dL Urine Glucose (UA) 70 mg/dL Urine Ketones NEG mg/dL Urine Occult Blood NEG Urine Nitrite NEG Urine Bilirubin NEG Urine Urobilinogen LESS THAN 2.0 MG/DL Urine Leukocyte Esterase NEG Urine RBC 1 /hpf Urine WBC 1 /hpf Urine Calcium Oxalate Crystals OCC /hpf Microscopic Urinalysis Comment CULT NOT INDICATED Blood Urea Nitrogen 16 MG/DL Creatinine 0.99 MG/DL Random Glucose 181 MG/DL Calcium Level 8.9 MG/DL Magnesium Level 2.3 MG/DL Sodium Level 142 MEQ/L Potassium Level 3.4 MEQ/L Chloride Level 106 MEQ/L Carbon Dioxide Level 28.6 MEQ/L Anion Gap 7 MEQ/L Estimat Glomerular Filtration Rate 98 ML/MIN Total Creatine Kinase 470 U/L Creatine Kinase MB 3.5 NG/ML Creatine Kinase MB % 0.7 % Troponin I LESS THAN 0.02 NG/ML MDM Medical Decision Making Medical Screen Exam Complete: Yes Emergency Medical Condition: Yes Medical Record Reviewed: Yes Differential Diagnosis Acute coronary syndrome, angina, CHF, pulmonary embolism, pleurisy, pericarditis , myocarditis, pneumothorax, hemothorax Narrative Course The patient was placed on ECG monitoring pulse oximetry. 12-lead EKG was obtained revealing sinus rhythm with T-wave inversions noted in the anterior leads. No acute ST depression or elevation. Lab work, chest x-ray have been ordered. The patient is hypertensive, he will be given aspirin. Initially his blood pressure was elevated in triage and upon recheck it is in the 150 systolic in both arms and therefore metoprolol was discontinued. He is currently asymptomatic. CBC unremarkable, BMP reveals potassium 3.4, glucose 181. Total CK is 470. CK- MB and troponin are within normal limits. Chest x-ray is normal. At this point in time the plan will be to admit the patient into the chest pain center for serial cardiac enzymes and rule out purposes. He is agreeable. Diagnosis Primary Impression: Chest pain Additional Impression: Dyspnea on exertion Admitting Information Admitting Physician Requests: Devang Jones Jun 25, 2017 15:37
[2017-06-25] MEDS ORDERED: POTASSIUM CHLORIDE 20 MEQ CONTROLLED RELEASE TAB PO ONE (15:45)
[2017-06-25 15:46] LABS: PROTHROMBIN TIME - PATIENT 10.2 SEC (9.8-11.6)
--- NOTE | 2017-06-25 16:02 | RADRPT ---
EXAM DATE/TIME: 06/25/2017 15:51 [facility] COMPARISON: CHEST SINGLE AP, April 17, 2016, 5:43. INDICATIONS : Chest pain with shortness of breath. MEDICAL HISTORY : Diabetes mellitus type II. Hypertension. SURGICAL HISTORY : CABG. ENCOUNTER: Initial ACUITY: 1 day PAIN SCORE: 4/10 LOCATION: Bilateral chest FINDINGS: PA and lateral views of the chest demonstrate the lungs to be symmetrically aerated without evidence of mass, infiltrate or effusion. Status post CABG. The cardiomediastinal contours are unremarkable. Osseous structures are intact. CONCLUSION: No acute disease. Dilshad Tan MD on June 25, 2017 at 16:00 Board Certified Radiologist. This report was verified electronically.
--- NOTE | 2017-06-25 16:12 | PD ---
Physical Exam Date Seen by Provider: Jun 25, 2017 Time Seen by Provider: 15:30 Narrative I, Dr. Helton, have reviewed the advance practice practitioner's documentation and am in agreement, met with the patient face to face, made the diagnosis, and the medical decision making was done by me. *My assessment and Findings: Patient seen and evaluated with PA, please see PA notes for further details. Patient has been having chest discomfort and dyspnea on exertion with lifting. At this point, is chest pain-free. Cardiac evaluation was done and it there are some nonspecific T-wave changes in the lateral leads, and at this point, plan would be to evaluate the patient further to chest pain center. Cardiac enzymes and lab work was otherwise unremarkable. Laboratory Tests Test 06/25/17 14:47 Hematocrit 37.4 % (39.0-51.0) Urine Glucose (UA) 70 mg/dL (NEG) Urine Calcium Oxalate Crystals OCC /hpf (NONE) Random Glucose 181 MG/DL (74-106) Potassium Level 3.4 MEQ/L (3.5-5.1) Total Creatine Kinase 470 U/L (39-308) Troponin I LESS THAN 0.02 NG/ML Data Data Last Documented VS Vital Signs Date Time Temp Pulse Resp B/P (MAP) Pulse Ox O2 Delivery O2 Flow Rate FiO2 06/25/17 15:35 18 98 Room Air 06/25/17 15:35 78 06/25/17 14:34 98.4 Orders Orders Electrocardiogram (06/25/17 14:36) Basic Metabolic Panel (Bmp) (06/25/17 14:36) Ckmb (Isoenzyme) Profile (06/25/17 14:36) Complete Blood Count With Diff (06/25/17 14:36) Magnesium (Mg) (06/25/17 14:36) Prothrombin Time / Inr (Pt) (06/25/17 14:36) Act Partial Throm Time (Ptt) (06/25/17 14:36) Troponin I (06/25/17 14:36) Chest, Pa & Lat (06/25/17 14:36) Urinalysis - C+S If Indicated (06/25/17 14:48) Ecg Monitoring (06/25/17 15:30) Bilateral Bp Monitoring (06/25/17 15:30) Iv Access Insert/Monitor (06/25/17 15:30) Oximetry (06/25/17 15:30) Aspirin Chew (Aspirin Chew) (06/25/17 15:30) Labetalol Inj (Trandate Inj) (06/25/17 15:30) Metoprolol Tartrate Inj (Lopressor Inj) (06/25/17 15:33) CKMB (06/25/17 14:47) CKMB% (06/25/17 14:47) Potassium Chloride (Kcl) (06/25/17 15:45) Admit Order (Ed Use Only) (06/25/17 16:09) Labs Laboratory Tests Test 06/25/17 14:47 White Blood Count 6.2 TH/MM3 Red Blood Count 4.56 MIL/MM3 Hemoglobin 13.0 GM/DL Hematocrit 37.4 % Mean Corpuscular Volume 82.1 FL Mean Corpuscular Hemoglobin 28.6 PG Mean Corpuscular Hemoglobin Concent 34.8 % Red Cell Distribution Width 14.3 % Platelet Count 217 TH/MM3 Mean Platelet Volume 9.3 FL Neutrophils (%) (Auto) 64.7 % Lymphocytes (%) (Auto) 28.2 % Monocytes (%) (Auto) 5.6 % Eosinophils (%) (Auto) 0.6 % Basophils (%) (Auto) 0.9 % Neutrophils # (Auto) 4.0 TH/MM3 Lymphocytes # (Auto) 1.8 TH/MM3 Monocytes # (Auto) 0.3 TH/MM3 Eosinophils # (Auto) 0.0 TH/MM3 Basophils # (Auto) 0.1 TH/MM3 CBC Comment DIFF FINAL Differential Comment Prothrombin Time 10.2 SEC Prothromb Time International Ratio 1.0 RATIO Activated Partial Thromboplast Time 26.6 SEC Urine Color YELLOW Urine Turbidity CLEAR Urine pH 6.0 Urine Specific [place] 1.018 Urine Protein TRACE mg/dL Urine Glucose (UA) 70 mg/dL Urine Ketones NEG mg/dL Urine Occult Blood NEG Urine Nitrite NEG Urine Bilirubin NEG Urine Urobilinogen LESS THAN 2.0 MG/DL Urine Leukocyte Esterase NEG Urine RBC 1 /hpf Urine WBC 1 /hpf Urine Calcium Oxalate Crystals OCC /hpf Microscopic Urinalysis Comment CULT NOT INDICATED Blood Urea Nitrogen 16 MG/DL Creatinine 0.99 MG/DL Random Glucose 181 MG/DL Calcium Level 8.9 MG/DL Magnesium Level 2.3 MG/DL Sodium Level 142 MEQ/L Potassium Level 3.4 MEQ/L Chloride Level 106 MEQ/L Carbon Dioxide Level 28.6 MEQ/L Anion Gap 7 MEQ/L Estimat Glomerular Filtration Rate 98 ML/MIN Total Creatine Kinase 470 U/L Creatine Kinase MB 3.5 NG/ML Creatine Kinase MB % 0.7 % Troponin I LESS THAN 0.02 NG/ML [facility] Medical Record Reviewed: Yes Supervised Visit with JOEY: Yes Diagnosis Primary Impression: Chest pain Admitting Information Admitting Physician Requests: it Prashanth Helton MD Jun 25, 2017 16:12
[2017-06-25] MEDS ORDERED: ONDANSETRON HCL 4 MG/2 ML VIAL IV PUSH PRN (16:45)
[2017-06-25] MEDS ORDERED: ACETAMINOPHEN 500 MG CPLT PO PRN (16:45)
[2017-06-25] MEDS ORDERED: ACETAMINOPHEN/HYDROcodone 325 MG/7.5 MG TAB PO PRN (16:45)
[2017-06-25] MEDS ORDERED: ALPRAZolam 0.25 MG TAB PO PRN (16:45)
--- NOTE | 2017-06-25 16:45 | HHI.HP ---
HPI Primary Care Physician No Primary Care Physician Chief Complaint CHEST PAIN History of Present Illness This is a 46-year-old male with history of CAD with two-vessel bypass WANG to LAD and vein graft to PDA 04/28 that presents to ED to be evaluated for chest discomfort. Patient states that he developed a central chest heaviness while at work this morning at around 1130. 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 It lasts a few minutes after he stopped the activity. However the discomfort recurred when he started walk fast again. Also lasting a few minutes. He was short of breath. Denies nausea or diaphoresis. 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 States he had a job change and is waiting for his insurance to take effect. States the discomfort he had today is not similar to the discomfort that led to his bypass. Voices compliance with his medications. Review of Systems General: Patient denies fevers, chills, and recent travel. HEENT: Patient denies headache, sore throat, difficulty swallowing. Cardiovascular: Has the chest discomfort as mentioned above. Denies sensation of heart beating rapidly or irregularly. No syncope. Denies diaphoresis. Respiratory: He was short of breath. Denies inspirational chest discomfort. Denies coughing wheezing or hemoptysis. GI: Patient denies nausea, vomiting, diarrhea, abdominal pain, bloody stools. Musculoskeletal: Patient denies joint pain or edema. Denies calf pain or edema. Neurovascular: Patient denies numbness, tingling, weakness in extremities. Denies headache. Endocrine: Denies polyuria and polydipsia. Hematologic: Denies easy bruising. Skin: Denies rash or itching. Past Family Social History Allergies: Coded Allergies: penicillin G (Verified Allergy, Severe, ITCHING, 06/25/17) Past Medical History CAD with two-vessel bypass 2 months ago. Hypertension, hyperlipidemia, diabetes. Past Surgical History 2 vessel bypass 2 months ago. Reported Medications Reported Meds & Active Scripts Active Thera M Plus (Multivitamins/Minerals Therapeutic) 1 Tab 1 Tab PO DAILY Lopressor (Metoprolol Tartrate) 100 Mg Tab 100 Mg PO Q12HR Plavix (Clopidogrel Bisulfate) 75 Mg Tab 75 Mg PO DAILY Catapres (Clonidine) 0.1 Mg Tab 0.1 Mg PO BID [Aspirin Chew] 81 MG Chew 81 Mg PO DAILY Reported Metformin (Metformin HCl) 1,000 Mg Tab 1,000 Mg PO BIDPC With meals Active Ordered Medications Current Medications Medications (Trade) Dose Ordered Sig/Sin Route Start Time Stop Time Status Last Admin (Plavix) 75 mg DAILY PO 06/26/17 09:00 (Lopressor) 100 mg Q12HR PO 06/25/17 21:00 (Theragran M Tab) 1 tab DAILY PO 06/26/17 09:00 (Tylenol) 500 mg Q4H PRN PO 06/25/17 16:45 UNV ([place] 7.5-325 Mg) 1 tab Q4H PRN PO 06/25/17 16:45 UNV (Zofran Inj) 4 mg Q6H PRN IV PUSH 06/25/17 16:45 UNV (Aspirin) 325 mg DAILY PO 06/26/17 09:00 UNV (Xanax) 0.25 mg Q8H PRN PO 06/25/17 16:45 UNV Family History Denies family history of CAD. Social History Quit smoking 25 years ago. Denies alcohol or illicit drug use. Physical Exam Vital Signs Vital Signs Date Time Temp Pulse Resp B/P (MAP) Pulse Ox O2 Delivery O2 Flow Rate FiO2 06/25/17 15:35 18 98 Room Air 06/25/17 15:35 78 18 158/85 (109) 98 Room Air 153/78 (103) 06/25/17 15:30 79 20 98 Room Air 06/25/17 14:34 98.4 85 18 198/104 (135) 97 Physical Exam GENERAL: This is a well-nourished, well-developed patient, in no apparent distress. Patient speaks in clear complete sentences. Patient is pleasant. HEENT: Head is atraumatic and normocephalic. Neck is supple without lymphadenopathy and trachea is midline. No JVD or carotid bruits. CARDIOVASCULAR: Regular rate and rhythm without murmurs, gallops, or rubs. RESPIRATORY: Clear to auscultation. Breath sounds equal bilaterally. No wheezes , rales, or rhonchi. Chest wall is nontender. No use of accessory muscles. GASTROINTESTINAL: Abdomen is nontender, nondistended. Abdomen soft. No obvious pulsatile mass or bruit. No CVA tenderness. Strong femoral pulses bilaterally. Normal bowel sounds in all quadrants. MUSCULOSKELETAL: Patient is moving upper and lower extremities freely. No calf tenderness or edema, no Homans sign. Strong pulses in upper and lower extremities. NEUROLOGICAL: Patient is alert and oriented. Cranial nerves 2-12 are grossly intact. No focal deficits and speech is clear. SKIN: No rash and turgor is normal. Laboratory Laboratory Tests Test 06/25/17 14:47 White Blood Count 6.2 Red Blood Count 4.56 Hemoglobin 13.0 Hematocrit 37.4 Mean Corpuscular Volume 82.1 Mean Corpuscular Hemoglobin 28.6 Mean Corpuscular Hemoglobin Concent 34.8 Red Cell Distribution Width 14.3 Platelet Count 217 Mean Platelet Volume 9.3 Neutrophils (%) (Auto) 64.7 Lymphocytes (%) (Auto) 28.2 Monocytes (%) (Auto) 5.6 Eosinophils (%) (Auto) 0.6 Basophils (%) (Auto) 0.9 Neutrophils # (Auto) 4.0 Lymphocytes # (Auto) 1.8 Monocytes # (Auto) 0.3 Eosinophils # (Auto) 0.0 Basophils # (Auto) 0.1 CBC Comment DIFF FINAL Differential Comment Prothrombin Time 10.2 Prothromb Time International Ratio 1.0 Activated Partial Thromboplast Time 26.6 Urine Color YELLOW Urine Turbidity CLEAR Urine pH 6.0 Urine Specific [place] 1.018 Urine Protein TRACE Urine Glucose (UA) 70 Urine Ketones NEG Urine Occult Blood NEG Urine Nitrite NEG Urine Bilirubin NEG Urine Urobilinogen LESS THAN 2.0 Urine Leukocyte Esterase NEG Urine RBC 1 Urine WBC 1 Urine Calcium Oxalate Crystals OCC Microscopic Urinalysis Comment CULT NOT INDICATED Blood Urea Nitrogen 16 Creatinine 0.99 Random Glucose 181 Calcium Level 8.9 Magnesium Level 2.3 Sodium Level 142 Potassium Level 3.4 Chloride Level 106 Carbon Dioxide Level 28.6 Anion Gap 7 Estimat Glomerular Filtration Rate 98 Total Creatine Kinase 470 Creatine Kinase MB 3.5 Creatine Kinase MB % 0.7 Troponin I LESS THAN 0.02 Result Diagram: 06/25/17 1447 06/25/17 1447 Imaging Last 48 hours Impressions Chest X-Ray 06/25/17 1436 Signed Impressions: Service Date/Time: Sunday, June 25, 2017 15:51 - CONCLUSION: No acute disease. Dilshad Tan MD Course Initial EKG is sinus rhythm with nonspecific anterolateral T-wave changes. Caprini VTE Risk Assessment Caprini VTE Risk Assessment: No/Low Risk (score <= 1) Caprini Risk Assessment Model Point Value = 1 Point Value = 2 Point Value = 3 Point Value = 5 Age 41-60 Minor surgery BMI > 25 kg/m2 Swollen legs Varicose veins or History of unexplained or recurrent spontaneous Oral contraceptives or hormone replacement Sepsis (< 1 month) Serious lung disease, including pneumonia (< 1 month) Abnormal pulmonary function Acute myocardial infarction Congestive heart failure (< 1 month) History of inflammatory bowel disease Medical patient at bed rest Age 61-74 Arthroscopic surgery Major open surgery (> 45 min) Laparoscopic surgery (> 45 min) Malignancy Confined to bed (> 72 hours) Immobilizing plaster cast Central venous access Age >= 75 History of VTE Family history of VTE Factor V Leiden Prothrombin [id number] Lupus anticoagulant Anticardiolipin antibodies Elevated serum homocysteine Heparin-induced thrombocytopenia Other congenital or acquired thrombophilia Stroke (< 1 month) Elective arthroplasty Hip, pelvis, or leg fracture Acute spinal cord injury (< 1 month) Prophylaxis Regimen Total Risk Factor Score Risk Level Prophylaxis Regimen 0-1 Low Early ambulation 2 Moderate Order ONE of the following: *Sequential Compression Device (SCD) *Heparin 5000 units SQ BID 3-4 Higher Order ONE of the following medications: *Heparin 5000 units SQ TID *Enoxaparin/Lovenox 40 mg SQ daily (WT < 150 kg, CrCl > 30 mL/min) *Enoxaparin/Lovenox 30 mg SQ daily (WT < 150 kg, CrCl > 10-29 mL/min) *Enoxaparin/Lovenox 30 mg SQ BID (WT < 150 kg, CrCl > 30 mL/min) AND/OR *Sequential Compression Device (SCD) 5 or more Highest Order ONE of the following medications: *Heparin 5000 units SQ TID (Preferred with Epidurals) *Enoxaparin/Lovenox 40 mg SQ daily (WT < 150 kg, CrCl > 30 mL/min) *Enoxaparin/Lovenox 30 mg SQ daily (WT < 150 kg, CrCl > 10-29 mL/min) *Enoxaparin/Lovenox 30 mg SQ BID (WT < 150 kg, CrCl > 30 mL/min) AND *Sequential Compression Device (SCD) Assessment and Plan Assessment and Plan * Chest pain: Patient will continue to have serial cardiac enzymes and EKGs for ruling out purposes. Patient has been seen by Dr. Clemens of cardiology in the chest pain center. We will add amlodipine 5 mg daily. Patient will stay overnight to rule out and if his troponins are normal he will be discharged home with addition of amlodipine. Follow-up with PCP and cardiology. * CAD: Likely to be reassessed with stress testing. Continue medications. * Hypertension: Continue medication. Add amlodipine. Continue to monitor vital signs. * Hyperlipidemia: Continue medication. * Diabetes: Hold metformin. Have sliding scale insulin coverage. Follow diabetic diet. Resume medication at discharge. Patient is stable at this time. He is agreeable to this plan. Rizwan Casanova Jun 25, 2017 16:45
[2017-06-25] MEDS: INSULIN ASPART SUPPLEMENTAL SCALE SQ SCH ×3 (17:00→21:20)
[2017-06-25] MEDS ORDERED: DEXTROSE 50% IN WATER 50 ML VIAL(D50) IV PUSH PRN (17:00)
[2017-06-25] MEDS ORDERED: GLUCAGON 1 MG/ML VIAL OTHER PRN (17:00)
[2017-06-25 17:14] VITALS: BP 159/95; PULSE 67; RESP 20; TEMP 98.3; O2SAT 100
[2017-06-25] MEDS: amLODIPine BESYLATE 5 MG TAB PO SCH (17:30)
[2017-06-25 18:33] VITALS: PULSE 68
[2017-06-25 18:47] LABS: TROPONIN I LESS THAN 0.02 NG/ML (0.02-0.05)
[2017-06-25 20:00] VITALS: PULSE 63
[2017-06-25 21:02] VITALS: BP 156/96; PULSE 63; RESP 16; TEMP 97.9; O2SAT 95
[2017-06-25] MEDS: METOPROLOL TARTRATE 100 MG TAB PO SCH (21:20)
[2017-06-25 22:47] LABS: TROPONIN I LESS THAN 0.02 NG/ML (0.02-0.05)
[2017-06-26] VITALS (7 sets, daily range): BP systolic 156–164; BP diastolic 78–87; PULSE 60–79; RESP 16–20; TEMP 97.7–97.8; O2SAT 97–98
[2017-06-26] MEDS ORDERED: AMLO5TAB2 PO (07:26)
--- NOTE | 2017-06-26 07:27 | HHI.DCPOC ---
Discharge Care Plan Diagnosis: (1) Chest pain (2) Hypertension (3) Hyperlipemia (4) DM (diabetes mellitus) (5) CAD (coronary artery disease) (6) S/P CABG x 2 Goals to Promote Your Health * To prevent worsening of your condition and complications * To maintain your health at the optimal level Directions to Meet Your Goals Take your medications as prescribed Follow your dietary instruction Follow activity as directed Keep your appointments as scheduled Take your immunizations and boosters as scheduled If your symptoms worsen call your PCP, if no PCP go to Urgent Care Center or Emergency Room Smoking is Dangerous to Your Health. Avoid second hand smoke Call the 24-hour hour crisis hotline for domestic abuse at Rizwan Casanova Jun 26, 2017 07:27
[2017-06-26] MEDS: METOPROLOL TARTRATE 100 MG TAB PO SCH (08:53)
[2017-06-26] MEDS: amLODIPine BESYLATE 5 MG TAB PO SCH (08:53)
[2017-06-26] MEDS ORDERED: ASPIRIN 325 MG TAB PO SCH (09:00)
[2017-06-26] MEDS ORDERED: CLOPIDOGREL 75 MG TAB PO SCH (09:00)
[2017-06-26] MEDS ORDERED: MULTIVITAMINS/MINERALS THERAPEUTIC TAB PO SCH (09:00)
--- NOTE | 2017-06-26 23:00 | EKG ---
Date Performed: 06/25/2017 Time Performed: 14:43:31 PTAGE: 46 years EKG: Sinus rhythm POSSIBLE LEFT ATRIAL ENLARGEMENT INFERIOR MYOCARDIAL INFARCTION MODERATE T-WAVE ABNORMALITY ABNORMAL ECG PREVIOUS TRACING : 04/14/2016 05.26 Since the previous tracing, no significant change noted DOCTOR: Faby Velasquez Interpretating Date/Time 06/26/2017 22:59:09
--- NOTE | 2017-06-27 10:02 | EKG ---
Date Performed: 06/25/2017 Time Performed: 21:22:54 PTAGE: 46 years EKG: SINUS BRADYCARDIA INFERIOR MYOCARDIAL INFARCTION MODERATE T-WAVE ABNORMALITY, CONSIDER ANTE ROLATERAL ISCHEMIA ABNORMAL ECG PREVIOUS TRACING : 06/25/2017 18.02 Since previous tracing, no significant change noted DOCTOR: Ramon Philip Interpretating Date/Time 06/27/2017 10:00:02
--- NOTE | 2017-06-27 10:02 | EKG ---
Date Performed: 06/25/2017 Time Performed: 18:02:08 PTAGE: 46 years EKG: Sinus rhythm INFERIOR MYOCARDIAL INFARCTION MODERATE T-WAVE ABNORMALITY, CONSIDER ANTEROLATERAL ISCHEMIA ABNORMAL ECG PREVIOUS TRACING : 06/25/2017 14.43 Since previous tracing, no significant change noted DOCTOR: Ramon Philip Interpretating Date/Time 06/27/2017 10:00:29
== END 2017-06-26 10:10 | disposition home or self-care (01) ==
LOC: NEPE 14:16 → NEDA 16:10 → NEPHCDU 17:03
PROVIDERS: ADMIT Internal Medicine Interventional Cardiology; ATTEND Internal Medicine Interventional Cardiology
DX: R07.89 Other chest pain (principal); I25.10 Atherosclerotic heart disease of native coronary artery without angina pectoris; I10 Essential (primary) hypertension; E78.00 Pure hypercholesterolemia, unspecified; E11.9 Type 2 diabetes mellitus without complications; R06.02 Shortness of breath; R00.1 Bradycardia, unspecified; R94.31 Abnormal electrocardiogram [ECG] [EKG]; Z79.899 Other long term (current) drug therapy; Z79.82 Long term (current) use of aspirin; Z79.84 Long term (current) use of oral hypoglycemic drugs; Z87.891 Personal history of nicotine dependence; Z95.1 Presence of aortocoronary bypass graft
CPT/HCPCS: 71046; 80048; 81001; 82550; 82552; 82948; 83735; 84484; 85025; 85610; 85730; 93005; 99285; G0378